=== PATIENT | male | born 1955 | race Caucasian/White ===

== ENCOUNTER 2023-10-06 13:50 | Inpatient (IN) | payer BC, OTHER ==
--- OUTSIDE RECORDS SUMMARY | 2023-10-06 13:57 | XMS REPORT | Continuity of Care Document ---
Author Name Unknown Address [address] [facility] [address] [place] [address] [facility] [address] [facility] [address] [place] [address] Care Team Providers Care Mobile Lounge Driver Name Role Phone Aisha El Primary Care Physician Aisha El Attending Clinician Unavail yaerlis Sampson RN, Noelle Valencia Attending Clinician [phone] MAVERICK NUNN Attending Clinician UnavailEdvin Maldonado MD Attending Clinician [phone] Maverick Nunn MD Attending Clinician [phone] Yaz Dutton MD Attending Clinician YAZ DUTTON Attending Clinician Isis vailable Lab, Ang - Db Attending Clinician Unavailable Doctor Unassigned, [facility] Attending Clinician U mack KRISTA NUNN Attending Clinician Unavailable Edouard SILVER, Krista Attending Clinician [phone] Fahad SILVER, Azar Haines Attending Clinician [phone] Bindu Mcghee MD Attending Clinician [phone] DEMARCO DEE Attending Clinician Unavailable BINDU MCGHEE Attending Clinician Unavailable Luiz PAVING BLOCK CUTTER, Demarco Attending Clinician [phone] Jaciel Suh Attending Clinician Unavailable BRAYDEN CEE Attending Clinician Unavailable Coleman PAVING BLOCK CUTTER, Brayden Attending Clinician [phone] Lab, Adc Fam Pob I Attending Clinician Unavailab luther Kathleen MD, Azul Attending Clinician [phone] AZUL KATHLEEN Attending Clinician Unavailable Radiology Attending Clinician Unavailable RADIOLOGY Attending Clinician Unavailable Freddy Abreu MD Attending Clinician [phone] ERMA DEUTSCH Attending Clinician Unavailable Shearer PAC, Edwige S Attending Clinician [phone] Newton Bass MD Attending Clinician [phone] Sergo SILVER, Cornell Friend Attending Clinician [phone] Georgette SILVER, Jese Jones Attending Clinician [phone] FREDDY ABREU Attending Clinician UnavailMAVERICK Vazquez Admitting Clinician UnavailMaverick Vazquez MD Admitting Clinician [phone] Azar Cardona MD Admitting Clinician [phone] AZAR CARDONA Admitting Clinician Unavailab luther Palomino MD, Jese Jones Admitting Clinician [phone] Payers Payer Name Policy Type Policy Number Effective Date Expirati on Date Source [facility] [id number] 2013 00:00:00 [place] [address] [id number] [facility] MEDICARE OBS/INPT PART A ONLY [id number] 2019 00:00:00 Problems Condition Name Condition Details Condition Category Status Onset Date Resolution Date Last Treatment Date Treating Clinician Comments Source EDWARD (acute kidney injury) EDWARD (acute kidney injury) Disease Active 7 00:00: 00 [facility] Obesity (BMI 30-39.9) Obesity (BMI 30-39.9) Disease Active 2019-03 2 00:00: 00 [facility] Respirator y failure with hypoxia Respirator y failure with hypoxia Disease Active 2019-03 00:00: 00 [facility] Lumbar radiculopa thy Lumbar radiculopa thy Disease Active 2018-03 0 00:00: 00 [facility] Myofascial pain Myofascial pain Disease Active 2018-03 0 00:00: 00 [facility] Heart disease Heart disease Disease Active 2018-03 0 00:00: 00 [facility] STEMI (ST elevation myocardial infarction ) STEMI (ST elevation myocardial infarction ) Disease Active 12-13 00:00: 00 [facility] Diabetes mellitus Diabetes mellitus Disease Recurre nce 12-13 00:00: 00 [facility] [id number] ED (erectile dysfunctio n) of organic origin Problem [facility] [id number] Testicular hypofuncti on Problem [facility] [id number] Pain, joint, shoulder, left Problem [facility] [id number] Sprain of left rotator cuff capsule, subsequent encounter Problem [facility] [id number] Pain in left shoulder Problem [facility] [id number] Other chronic pain Problem [facility] [id number] CKD (chronic kidney disease) stage 2, GFR 60-89 ml/min Problem [facility] [id number] Hypercalce peewee Problem [facility] [id number] Uncomplica maddy opioid dependence Problem [facility] [id number] BPH without urinary obstructio n Problem [facility] [id number] Attention deficit hyperactiv ity disorder (ADHD), predominan tly inattentiv e type Problem [facility] [id number] Type 2 diabetes with complicati on Problem [facility] [id number] Lumbago with sciatica, right side Problem [facility] [id number] Panic attacks Problem [facility] [id number] Mixed hyperlipid emia Problem [facility] [id number] Overweight Problem Com [facility] [id number] Coronary artery disease involving [place] coronary artery of [place] heart without angina pectoris Problem [facility] [id number] Essential hypertensi on Problem [facility] [id number] Stented coronary artery Problem [facility] [id number] Polyneurop athy Problem [facility] [id number] Lumbago with sciatica, left side Problem [facility] [id number] Acquired hypothyroi dism Problem [facility] [id number] Pain, joint, shoulder, right Problem [facility] No known active problems No known active problems Disease [facility] Allergies, Adverse Reactions, Alerts Allergy Name Allergy Type Status Severity Reaction(s) Onset Date Inactive Date Treating Clinician Comments Source No Known Drug Allergie s DA Active U 03-24 00:00: 00 [facility] NO KNOWN ALLERGIE S Drug Class Active [facility] Social History Social Habit Start Date Stop Date Quantity Comments Source History of Tobacco Use [facility] Sex Assigned At [facility] intake 2023-09-24 00:00:00 2023-09-24 00:00:00 .24 /d [facility] Alcohol intake 2023-02-04 00:00:00 2023-02-04 00:00:00 .24 /d [facility] History of Social function 2023-02-04 00:00:00 2023-02-04 00:00:00 [facility] Alcohol Comment 2023-02-04 00:00:00 2023-02-04 00:00:00 rarely [facility] Exposure to SARS-CoV-2 (event) 2021-12-14 00:00:00 2021-12-24 09:38:00 Not sure [facility] Tobacco Comment 2021-12-24 00:00:00 2021-12-24 00:00:00 1 can/day, 12 yrs [facility] Tobacco use and exposure 2021-12-24 00:00:00 2021-12-24 00:00:00 Former smokeless tobacco user [facility] History SDOH Food Worry 2020-03-01 00:00:00 2020-03-01 00:00:00 1 [facility] History SDOH Food Scarcity 2020-03-01 00:00:00 2020-03-01 00:00:00 1 [facility] History SDOH Transport Med 2020-03-01 00:00:00 2020-03-01 00:00:00 2 [facility] History SDOH Transport Non-Med 2020-03-01 00:00:00 2020-03-01 00:00:00 2 [facility] Smoking Status Start Date Stop Date Source Never smoked tobacco [facility] Medications Ordered Medication Name Filled Medication Name Start Date Stop Date Current Medication? Ordering Clinician Indication Dosage Frequency Signature (SIG) Comments Components Source MULTIVITAMI N ORAL 09-25 15:53: 30 Yes 1{tbl} Take 1 tablet by mouth in the morning. [facility] HYDROcodone -acetaminop hen 5-325 mg tablet 09-25 15:53: 30 Yes 1{tbl} Take 1 tablet by mouth every 6 (six) hours as needed. [facility] Thyroid, Pork, (ARMOUR THYROID) 90 mg tablet 09-25 15:53: 30 Yes Take by mouth daily. In the morning [facility] rosuvastati n (CRESTOR) tablet 10 mg 09-25 02:00: 00 Yes 10mg 10 mg, Oral, QHS, First dose on Thu09/25/23 at 2100, Until Discontinu ed, Routine [facility] tamsulosin 0.4 mg 24 hr capsule 09-25 00:00: 00 Yes .4mg Take 1 capsule by mouth in the morning. [facility] cefdinir 300 mg capsule 09-25 00:00: 00 10-03 04:59 :00 Yes [id number] 300mg Take 1 capsule by mouth in the morning and 1 capsule in the evening. Do all this for 7 days. [facility] azithromyci n 500 mg tablet 09-25 00:00: 00 09-29 04:59 :00 Yes [id number] 500mg Take 1 tablet by mouth in the morning for 3 days. [facility] Sliding Scale Insulin - Lispro (HumaLOG) 09-24 17:00: 00 Yes Subcutaneo us, TID MEALS+HS, First dose on Thu09/25/23 at 1200, Until Discontinu ed, Routine [facility] perflutren protein-A microsphr (OPTISON) injection 3 mL 09-24 15:45: 00 09-24 15:45 :00 No [id number] 3mL 3 mL, IV Push, ONCE, 1 dose, On Thu09/25/23 at 1045, Routine [facility] tamsulosin (FLOMAX) capsule 0.4 mg 09-24 14:00: 00 Yes .4mg 0.4 mg, Oral, DAILY, First dose on Thu09/25/23 at 0900, Until Discontinu ed, Routine [facility] dapaglifloz in propanediol (FARXIGA) tablet 5 mg 09-24 14:00: 00 Yes 5mg [facility] clopidogreL (PLAVIX) 75 mg tablet 75 mg 09-24 14:00: 00 Yes 75mg 75 mg, Oral, DAILY, First dose on Thu09/25/23 at 0900, Until Discontinu ed, Routine [facility] aspirin EC tablet 81 mg 09-24 14:00: 00 Yes 81mg 81 mg, Oral, DAILY, First dose on Thu09/25/23 at 0900, Until Discontinu ed, Routine [facility] amLODIPine (NORVASC) tablet 5 mg 09-24 14:00: 00 09-24 21:12 :54 No 5mg 5 mg, Oral, DAILY, First dose on Thu09/25/23 at 0900, Until Discontinu ed, Routine [facility] glucagon (GLUCAGEN DIAGNOSTIC KIT) injection 1 mg 09-24 13:49: 13 Yes 1mg 1 mg, Intramuscu lar, PRN, Starting on Thu09/25/23 at 0849, Until Discontinu ed, MARGO, Blood Glucose < or = 70 mg/dL and patient is NPO, unable to swallow or has mental changes. [facility] dextrose 50 % in water (D50W) injection 25 mL 09-24 13:49: 13 Yes 25mL 25 mL, Slow IV Push, PRN, Starting on Thu09/25/23 at 0849, Until Discontinu ed, MARGO, Blood Glucose < or = 70 mg/dL and patient is NPO, unable to swallow or has mental status changes. [facility] DULoxetine (CYMBALTA) capsule 20 mg 09-24 13:00: 00 Yes 20mg 20 mg, Oral, BID, First dose on Thu09/25/23 at 0800, Until Discontinu ed, Routine [facility] metoprolol tartrate (LOPRESSOR) tablet 100 mg 09-24 13:00: 00 Yes 100mg 100 mg, Oral, BID, First dose on Thu09/25/23 at 0800, Until Discontinu ed [facility] heparin (porcine) injection 5,000 Units 09-24 13:00: 00 Yes 5000U 5,000 Units, Subcutaneo us, Q12H, First dose on Thu09/25/23 at 0800, Until Discontinu ed, Routine [facility] NaCl 0.9% (NS) bolus infusion 500 mL 09-24 08:00: 00 09-24 07:21 :00 No 500mL at 999 mL/hr, 500 mL, IV Piggyback, ONCE, 1 dose, On Thu09/25/23 at 0300, STAT [facility] gabapentin (NEURONTIN) tablet 600 mg 09-24 07:15: 00 Yes 600mg 600 mg, Oral, TID, First dose (after last modificati on) on Thu09/25/23 at 0215, Until Discontinu ed, Routine [facility] temazepam (RESTORIL) capsule 15 mg 09-24 07:06: 24 Yes 15mg 15 mg, Oral, QHSPRN, Starting on Thu09/25/23 at 0206, Until Discontinu ed, Routine, Insomnia [facility] NaCl 0.9% (NS) IV infusion 1,000 mL 09-24 06:45: 00 09-25 20:14 :33 No 1000mL at 150 mL/hr, Intravenou s, CONTINUOUS , Starting on Thu09/25/23 at 0145, Until 09/26/23 at 1514, Routine [facility] ondansetron (ZOFRAN (PF)) injection 4 mg 09-24 05:34: 39 Yes 4mg 4 mg, Slow IV Push, Q6HPRN, Starting on Thu09/25/23 at 0034, Until Discontinu ed, Routine, Nausea and Vomiting (N/V) [facility] HYDROcodone -acetaminop hen (NORCO 5) 5-325 mg tablet 1 tablet 09-24 05:34: 34 09-26 05:33 :34 Yes 1{tbl} 1 tablet, Oral, Q6HPRN, Starting on Thu09/25/23 at 0034, Until 09/27/23 at 0033, Routine, Pain (scale 4-6) [facility] acetaminoph en (TYLENOL) tablet 650 mg 09-24 05:34: 32 Yes 650mg 650 mg, Oral, Q6HPRN, Starting on Thu09/25/23 at 0034, Until Discontinu ed, Routine, Pain (scale 1-3) [facility] NaCl 0.9% (NS) IV infusion 1,000 mL 2024-0 7-05 04:30: 00 09-24 21:12 :54 No 1000mL at 999 mL/hr, Intravenou s, CONTINUOUS , Starting on Thu09/24/23 at 2330, Until Thu09/25/23 at 1612, Routine 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 G6 Sensor - Dexcom G6 Sensor - 2023-0 2- 00:00: 00 No Dexcom G6 Sensor - Dexcom G6 Transmitter - Dexcom G6 Transmitter - 0 2- 00:00: 00 No Dexcom G6 Transmitte r - Lisdexamfet amine Dimesylate 70 MG Lisdexamfet amine Dimesylate 70 MG 2023-0 2- 00:00: 00 No 1{capsu le_in_t he_morn ing} QD Lisdexamfe tamine Dimesylate 70 MG Ozempic (2 MG/DOSE) 8 MG/3ML Ozempic (2 MG/DOSE) 8 MG/3ML 0 1-26 00:00: 00 No Ozempic (2 MG/DOSE) 8 MG/3ML Accu-check glucose monitor n/s Accu-check glucose monitor n/s 2023-0 -24 00:00: 00 No Accu-check glucose monitor n/s Alcohol Wipes 70 % Alcohol Wipes 70 % 2023-0 1-24 00:00: 00 No QID Alcohol Wipes 70 % Blood Glucose Test Strips 333 - Blood Glucose Test Strips 333 - 2023-0 1-24 00:00: 00 No QID Blood Glucose Test Strips 333 - Cotton Swabs - Cotton Swabs - 4-0 1-24 00:00: 00 No Cotton Swabs - metFORMIN HCl 1000 mg metFORMIN HCl 1000 mg 2023-0 1-23 00:00: 00 No 1{table t_with_ a_meal} QD metFORMIN HCl 1000 mg semaglutide (OZEMPIC) 1 mg/dose (4 mg/3 mL) [facility] 04-06 00:00: 00 Yes [id number] INJECT 1MG UNDER THE SKIN ONCE WEEKLY. [facility] semaglutide (OZEMPIC) 1 mg/dose (4 mg/3 mL) [facility] 2022-03 00:00: 00 04-06 00:00 :00 No [id number] 1mg inject 1 mg under the skin weekly. [facility] ZINC ORAL 2022-03 15:44: 54 02-04 00:00 :00 No 50ug Take 50 mcg by mouth in the morning. [facility] MULTIVITAMI N ORAL 2022-03 15:25: 40 Yes 1{tbl} Take 1 tablet by mouth in the morning. [facility] HYDROcodone -acetaminop hen 5-325 mg tablet 2022-03 15:25: 40 Yes 1{tbl} Take 1 tablet by mouth every 6 (six) hours as needed. [facility] ALPRAZolam 0.5 mg tablet 2022-03 00:00: 00 Yes [id number] Take 0.5 tablets by mouth every morning, THEN 0.5 tablets every other day. [facility] pregabalin 75 mg capsule 2022-03 00:00: 00 09-24 00:00 :00 No [id number] TAKE ONE (1) CAPSULE(S) BY MOUTH TWICE A DAY. [facility] semaglutide (OZEMPIC) 0.25 mg or 0.5 mg (2 mg/3 mL) [facility] 2022-03 00:00: 00 02-11 00:00 :00 No [id number] .5mg inject 0.5 mg under the skin weekly. [facility] sildenafiL 100 mg tablet 2022-03 00:00: 00 Yes TAKE 0.5-1 TABLET(S) BY MOUTH 1 HOUR PRIOR TO SEX. [facility] tadalafiL 20 mg tablet 2022-0309 00:00: 00 02-04 00:00 :00 No 20mg Take 1 tablet by mouth once daily as needed. [facility] lisdexamfet amine 70 mg capsule 2022-03 00:00: 00 Yes 70mg Take 1 capsule by mouth in the morning. [facility] OZEMPIC 0.25 mg or 0.5 mg (2 mg/3 mL) PnIj 09-26 00:00: 00 02-04 00:00 :00 No INJECT 0.25 MG UNDER THE SKIN ONCE A WEEK FOR 4 WEEKS, THEN INCREASE TO 0.5 MG ONCE A WEEK. [facility] pregabalin 75 mg capsule 09-26 00:00: 00 02-04 00:00 :00 No TAKE ONE (1) CAPSULE(S) BY MOUTH TWICE A DAY. [facility] ARMOUR THYROID 120 mg tablet 09-25 00:00: 00 09-24 00:00 :00 No TAKE ONE (1) TABLET(S) BY MOUTH ONCE A DAY IN THE MORNING. [facility] rosuvastati n 10 mg tablet 09-11 00:00: 00 Yes 10mg Take 1 tablet by mouth at bedtime. [facility] FARXIGA 5 mg tablet 09-11 00:00: 00 Yes 5mg Take 1 tablet by mouth in the morning. [facility] amphetamine -dextroamph etamine 20 mg 24 hr capsule 09-04 00:00: 00 02-04 00:00 :00 No TAKE ONE (1) CAPSULE(S) BY MOUTH TWICE A DAY. [facility] amLODIPine 5 mg tablet 09-01 00:00: 00 Yes 5mg Take 1 tablet by mouth in the morning. [facility] tamsulosin 0.4 mg 24 hr capsule 08-31 00:00: 00 09-24 00:00 :00 No .4mg Take 1 capsule by mouth in the morning. [facility] ALPRAZolam 0.5 mg tablet 2023-0 6-06 00:00: 00 02-04 00:00 :00 No .5mg Take 1 tablet by mouth in the morning and 1 tablet in the evening. [facility] nebivoloL 10 mg tablet 08-04 00:00: 00 Yes 10mg Take 1 tablet by mouth in the morning. [facility] metFORMIN 500 mg tablet 07-30 00:00: 00 Yes 1000mg Take 2 tablets by mouth in the morning and 2 tablets in the evening. Take with meals. [facility] metFORMIN 500 mg tablet 07-30 00:00: 00 Yes 500mg Take 1 tablet by mouth in the morning and 1 tablet in the evening. [facility] DULoxetine 60 mg capsule 07-30 00:00: 00 02-04 00:00 :00 No 60mg Take 1 capsule by mouth in the morning. [facility] JANUVIA 100 mg tablet 4-19 00:00: 00 02-04 00:00 :00 No 100mg Take 1 tablet by mouth in the morning. [facility] Viagra 100 MG Viagra 100 MG - 00:00: 00 No Viagra 100 MG insulin regular human (HUMULIN R) injection 10 Units 12-17 10:15: 00 12-17 09:20 :00 No 10U 10 Units, Slow IV Push, ONCE, 1 dose, On Thu12/17/21 at 0515, Routine
Indicatio n for insulin: Hyperglyce peewee [facility] NaCl 0.9% (NS) bolus infusion 1,000 mL 12-17 10:15: 00 12-17 10:20 :00 No 1000mL at 999 mL/hr, 1,000 mL, IV Piggyback, ONCE, 1 dose, On Thu12/17/21 at 0515, STAT [facility] iopamidol (ISOVUE 370-500 mL) injection 70 mL 12-17 07:35: 00 12-17 07:45 :00 No [id number] 70mL 70 mL, Intravenou s, ONCE, 1 dose, On Thu12/17/21 at 0245, Routine [facility] insulin regular human (HUMULIN R) injection 10 Units 12-17 07:30: 00 12-17 07:05 :00 No 10U 10 Units, Slow IV Push, ONCE, 1 dose, On Thu12/17/21 at 0230, Routine
Indicatio n for insulin: Hyperglyce peewee [facility] amoxicillin -clavulanat e 875-125 mg per tablet 12-17 00:00: 00 Yes [id number] 1{tbl} Take 1 tablet by mouth every 12 (twelve) hours. [facility] tetracaine (PONTOCAINE ) 0.5 % ophthalmic drops 1 Drop 12-16 23:45: 00 12-16 23:01 :00 No 1[drp] 1 Drop, Left Eye, ONCE, 1 dose, On Thu12/16/21 at 1845, Routine [facility] fluorescein (FUL-CARLO) ophthalmic strip 1 Strip 12-16 23:45: 00 12-16 23:01 :00 No 1{strip } 1 Strip, Left Eye, ONCE, 1 dose, On Thu12/16/21 at 1845, Routine
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
Reason for non-formul alexis use: PATIENT CURRENTLY TAKING NONFORMULA RY PRODUCT [facility] methylpredn isolone sod succ (SOLU-MEDRO L) injection 125 mg 12-16 23:30: 00 12-16 22:58 :00 No 125mg 125 mg, Intravenou s, ONCE, 1 dose, On Thu12/16/21 at 1830, 2 mL [facility] famotidine (PEPCID (PF)) injection 20 mg 12-16 23:00: 00 12-16 22:58 :00 No 20mg 20 mg, Slow IV Push, ONCE, 1 dose, On Thu12/16/21 at 1800, MARGO [facility] diphenhydrA MINE (BENADRYL) injection 25 mg 12-16 23:00: 00 12-16 22:59 :00 No 25mg 25 mg, Slow IV Push, ONCE, 1 dose, On 12/16/21 at 1800, STAT [facility] Lidocaine Lidocaine 03-27 00:00: 00 No 10mg [facility] Kenalog (Triamcinol one) Kenalog (Triamcinol one) - 00:00: 00 No 40mg [facility] HYDROcodone -acetaminop hen (NORCO 5) 5-325 mg tablet 1 tablet 2020-03 18:30: 00 02-03 17:29 :00 No 1{tbl} 1 tablet, Oral, ONCE, 1 dose, On 02/03/21 at 1230, MARGO [facility] valACYclovi r 1 gram tablet 2020-03 00:00: 00 02-14 05:59 :00 No [id number] 1g Take 1 tablet by mouth 3 (three) times daily for 10 days. [facility] acetaminoph en-codeine 300-30 mg tablet 2020-03 00:00: 00 02-11 05:59 :00 No [id number] 1{tbl} Take 1 tablet by mouth every 6 (six) hours as needed for Pain (scale 7-10) for up to 7 days. Indication s: acute pain [facility] DULoxetine 20 mg capsule 08-14 00:00: 00 Yes [id number] 20mg Take 1 capsule by mouth daily. [facility] insulin glargine (LANTUS U-100) injection 24 Units 2019-03 03:00: 00 Yes 24U 24 Units, Subcutaneo us, QHS, First dose (after last modificati on) on 03/03/20 at 2100, Until Discontinu ed, Routine [facility] aspirin 81 mg EC tablet 2019-03 00:00: 00 Yes [id number] 81mg Take 1 tablet by mouth daily. [facility] clopidogreL 75 mg tablet 2019-03 00:00: 00 Yes [id number] 75mg Take 1 tablet by mouth daily. [facility] DULoxetine 20 mg capsule 2019-03 00:00: 00 08-14 00:00 :00 No [id number] 20mg Take 1 capsule by mouth daily. [facility] cyclobenzap rine 10 mg tablet 2019-03 22:51: 39 03-03 00:00 :00 No 10mg Take 10 mg by mouth once daily as needed for Cramping. [facility] SITagliptin (JANUVIA) 100 mg tablet 2019-03 22:51: 39 03-03 00:00 :00 No 100mg Take 100 mg by mouth daily. [facility] simvastatin (ZOCOR) 20 mg tablet 2019-03 22:51: 38 03-03 00:00 :00 No 20mg Take 20 mg by mouth at bedtime. [facility] metFORMIN (GLUCOPHAGE ) 500 mg tablet 2019-03 22:51: 38 03-03 00:00 :00 No 500mg Take 500 mg by mouth 4 (four) times daily. [facility] dextroamphe tamine-amph etamine (ADDERALL) 20 mg tablet 2019-03 22:51: 38 03-03 00:00 :00 No 20mg Take 20 mg by mouth 2 (two) times daily. [facility] testosteron e cypionate (DEPOTESTOT ERONE CYPIONATE) 100 mg/mL injection 2019-03 22:51: 38 03-03 00:00 :00 No by Intramuscu lar route every 14 (fourteen) days. [facility] tadalafil (CIALIS) 20 mg tablet 2019-03 22:51: 38 03-03 00:00 :00 No 20mg Take 20 mg by mouth as needed for Erectile dysfunctio n. [facility] simvastatin (ZOCOR) 20 mg tablet 2019-03 21:30: 42 Yes 20mg Take 20 mg by mouth at bedtime. [facility] metFORMIN (GLUCOPHAGE ) 500 mg tablet 2019-03 21:30: 42 Yes 500mg Take 500 mg by mouth 4 (four) times daily. [facility] dextroamphe tamine-amph etamine (ADDERALL) 20 mg tablet 2019-03 21:30: 42 Yes 20mg Take 20 mg by mouth 2 (two) times daily. [facility] testosteron e cypionate (DEPOTESTOT ERONE CYPIONATE) 100 mg/mL injection 2019-03 21:30: 42 Yes by Intramuscu lar route every 14 (fourteen) days. [facility] tadalafil (CIALIS) 20 mg tablet 2019-03 21:30: 42 Yes 20mg Take 20 mg by mouth as needed for Erectile dysfunctio n. [facility] cyclobenzap rine 10 mg tablet 2019-03 21:30: 42 Yes 10mg Take 10 mg by mouth once daily as needed for Cramping. [facility] SITagliptin (JANUVIA) 100 mg tablet 2019-03 21:30: 42 Yes 100mg Take 100 mg by mouth daily. [facility] insulin lispro (human) (HumaLOG U-100) injection 8 Units 2019-03 13:30: 00 Yes 8U 8 Units, Subcutaneo us, TIDAC, First dose (after last modificati on) on 03/03/20 at 0730, Until Discontinu ed, Routine [facility] lisinopriL 20 mg tablet 2019-03 00:00: 00 Yes [id number] 20mg Take 1 tablet by mouth daily. [facility] albuterol 90 mcg/actuati on inhaler 2019-03 00:00: 00 02-04 00:00 :00 No [id number] 2{puff} Inhale 2 Puffs every 6 (six) hours as needed for Wheezing or Shortness of Breath. [facility] ipratropium (ATROVENT HFA) inhaler 2 Puff 2019-03 20:00: 00 Yes 2{puff} 2 Puff, Inhalation , TID, First dose (after last modificati on) on Thu03/02/20 at 1400, Until Discontinu ed, Routine
Is this order for a patient with suspected or confirmed COVID-19 infection? Yes [facility] albuterol (VENTOLIN) inhaler 2 Puff 2019-03 18:00: 00 Yes 2{puff} 2 Puff, Inhalation , Q6H, First dose (after last modificati on) on Thu03/02/20 at 1200, Until Discontinu ed, Routine
Is this order for a patient with suspected or confirmed COVID-19 infection? Yes [facility] simvastatin (ZOCOR) tablet 20 mg 2019-03 03:00: 00 Yes 20mg 20 mg, Oral, QHS, First dose on Thu03/01/20 at 2100, Until Discontinu ed, Routine [facility] insulin glargine (LANTUS U-100) injection 20 Units 2019-03 03:00: 00 03-03 13:23 :50 No .2U/kg/ d 20 Units (rounded from 19.96 Units = 0.2 Units/kg/d ay ?99.8 kg), Subcutaneo us, QHS, First dose on Thu03/01/20 at 2100, Until Discontinu ed, Routine [facility] sulfur hexafluorid e microsphr (LUMASON) injection 5 mL 2019-03 23:15: 00 03-01 21:32 :00 No 5mL 5 mL, Intravenou s, ONCE, 1 dose, Thu03/01/20 at 1715, Routine
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 : CESAR ARBOLEDA [facility] enoxaparin (LOVENOX) injection 40 mg 2019-03 23:00: 00 Yes 40mg 40 mg, Subcutaneo us, DAILY, First dose on Thu03/01/20 at 1700, Until Discontinu ed, Routine [facility] furosemide (LASIX) injection 40 mg 2019-03 17:30: 00 03-01 18:26 :00 No 40mg 40 mg, Slow IV Push, ONCE, 1 dose, Sandra 03/01/20 at 1130, Routine [facility] tamsulosin (FLOMAX) capsule 0.4 mg 2019-03 15:00: 00 Yes .4mg 0.4 mg, Oral, DAILY, First dose on Thu03/01/20 at 0900, Until Discontinu ed, Routine [facility] lisinopriL (PRINIVIL,Z ESTRIL) tablet 5 mg 2019-03 15:00: 00 Yes 5mg 5 mg, Oral, DAILY, First dose on Thu03/01/20 at 0900, Until Discontinu ed, Routine [facility] DULoxetine (CYMBALTA) capsule 20 mg 2019-03 15:00: 00 Yes 20mg 20 mg, Oral, DAILY, First dose on Thu03/01/20 at 0900, Until Discontinu ed, Routine [facility] clopidogreL (PLAVIX) tablet 75 mg 2019-03 15:00: 00 Yes 75mg 75 mg, Oral, DAILY, First dose on Thu03/01/20 at 0900, Until Discontinu ed, Routine [facility] aspirin EC tablet 81 mg 2019-03 15:00: 00 Yes 81mg 81 mg, Oral, DAILY, First dose on Thu03/01/20 at 0900, Until Discontinu ed, Routine [facility] Sliding Scale Insulin - Lispro (HumaLOG) + Fsbg Testing 2019-03 14:00: 00 Yes Subcutaneo us, TID MEALS+HS, First dose on Thu03/01/20 at 0800, Until Discontinu ed, Routine [facility] gabapentin (NEURONTIN) capsule 300 mg 2019-03 14:00: 00 Yes 300mg 300 mg, Oral, QID, First dose on Thu03/01/20 at 0800, Until Discontinu ed, Routine [facility] insulin lispro (human) (HumaLOG U-100) injection 7 Units 2019-03 13:30: 00 03-03 13:23 :50 No .2U/kg/ d 7 Units (rounded from 6.6533 Units = 0.2 Units/kg/d ay ?99.8 kg), Subcutaneo us, TIDAC, First dose on Thu03/01/20 at 0730, Until Discontinu ed, Routine [facility] thyroid (ARMOUR THYROID) tablet 120 mg 2019-03 12:00: 00 Yes 120mg 120 mg, Oral, QAM-0600, First dose on Thu03/01/20 at 0600, Until Discontinu ed [facility] glucagon (GLUCAGEN DIAGNOSTIC KIT) injection 1 mg 2019-03 10:55: 30 Yes 1mg 1 mg, Intramuscu lar, PRN, Starting Thu03/01/20 at 0455, Until Discontinu ed, MARGO, Blood Glucose < or = 70 mg/dL and patient is unable to swallow or has mental changes. [facility] dextrose 50 % in water (D50W) injection 25 mL 2019-03 10:55: 30 Yes 25mL 25 mL, Slow IV Push, PRN, Starting Thu03/01/20 at 0455, Until Discontinu ed, MARGO, Blood Glucose < or = 70 mg/dL and patient is unable to swallow or has mental status changes. [facility] metoprolol tartrate (LOPRESSOR) 25 mg tablet 2019-03 10:43: 30 03-01 00:00 :00 No 25mg Take 25 mg by mouth daily. [facility] HYDROcodone -acetaminop hen (NORCO) 10-325 mg tablet 1 tablet 2019-03 10:41: 11 Yes 1{tbl} 1 tablet, Oral, Q6HPRN, Starting Thu03/01/20 at 0441, Until Discontinu ed, Routine, Pain (scale 7-10) [facility] acetaminoph en (TYLENOL) tablet 650 mg 2019-03 10:41: 06 Yes 650mg 650 mg, Oral, Q6HPRN, Starting Thu03/01/20 at 0441, Until Discontinu ed, Routine, Pain (scale 1-3) [facility] acetaminoph en (TYLENOL) tablet 650 mg 2019-03 2-10 06:15: 00 03-01 05:02 :00 No 650mg 650 mg, Oral, ONCE, 1 dose, [facility] 03/01/20 at 0015, MARGO [facility] DULOXETINE 60 mg capsule 11-13 00:00: 00 03-03 00:00 :00 No [id number] TAKE 1 CAPSULE DAILY [facility] GLIMEPIRIDE 4 mg tablet 11-13 00:00: 03-03 00:00 :00 No [id number] TAKE 1 TABLET DAILY WITH BREAKFAST [facility] DULoxetine 60 mg capsule 06-02 00:00: 00 11-13 00:00 :00 No [id number] 60mg Take 1 capsule by mouth daily. [facility] glimepiride 4 mg tablet 06-02 00:00: 11-13 00:00 :00 No [id number] 4mg Take 1 tablet by mouth daily with breakfast. [facility] acetaminoph en-codeine 300-30 mg tablet 2018-03 0 00:00: 03-03 00:00 :00 No [id number] 1{tbl} Take 1 tablet by mouth every 4 (four) hours as needed for Pain (scale 7-10). [facility] simvastatin (ZOCOR) 20 mg tablet 06-13 15:50: 08 Yes 20mg Take 20 mg by mouth at bedtime. [facility] metFORMIN (GLUCOPHAGE ) 500 mg tablet 06-13 15:50: 08 Yes 500mg Take 500 mg by mouth 3 (three) times daily. [facility] dextroamphe tamine-amph etamine (ADDERALL) 20 mg tablet 06-13 15:50: 08 Yes 20mg Take 20 mg by mouth 3 (three) times daily. [facility] testosteron e cypionate (DEPOTESTOT ERONE CYPIONATE) 100 mg/mL injection 06-13 15:50: 08 Yes by Intramuscu lar route every 14 (fourteen) days. [facility] tadalafil (CIALIS) 20 mg tablet 06-13 15:50: 08 Yes 20mg Take 20 mg by mouth as needed for Erectile dysfunctio n. [facility] aspirin 81 mg EC tablet 05-29 00:00: 00 03-03 00:00 :00 No [facility] ARMOUR THYROID 90 mg tablet 1 00:00: 00 03-03 00:00 :00 No 120mg Take 120 mg by mouth daily. [facility] metoprolol tartrate (LOPRESSOR) 25 mg tablet 2015-0316 14:21: 51 Yes 25mg Take 25 mg by mouth daily. [facility] BYSTOLIC 5 mg tablet 2015-03 00:00: 00 03-03 00:00 :00 No [facility] gabapentin (NEURONTIN) 300 mg capsule 2015-03 00:00: 00 03-03 00:00 :00 No 300mg Take 300 mg by mouth 4 (four) times daily. [facility] testosteron e cypionate (DEPO-TESTO STERONE) 200 mg/mL injection 2015-03 00:00: 00 03-01 00:00 :00 No [facility] HYDROcodone -acetaminop hen (NORCO 5) 5-325 mg tablet 2015-03 00:00: 00 03-01 00:00 :00 No [facility] Nebivolol HCl 10 MG Nebivolol HCl 10 MG No 1{table t} QD Nebivolol HCl 10 MG Aspirin 81 MG Aspirin 81 MG No 1{table t} QD Aspirin 81 MG Farxiga 10 mg Farxiga 10 mg No 1{table t} QD Farxiga 10 mg Horizant 600 MG Horizant 600 MG No QD Horizant 600 MG Januvia 100 MG Januvia 100 MG No 1{table t} QD Januvia 100 MG amLODIPine Besylate 5 MG amLODIPine Besylate 5 MG No 1{table t} QD amLODIPine Besylate 5 MG Tamsulosin HCl 0.4 MG Tamsulosin HCl 0.4 MG No 1{capsu le} BID Tamsulosin HCl 0.4 MG Galva Thyroid 60 MG Galva Thyroid 60 MG No 1{table t_on_an _empty_ stomach } QD Galva Thyroid 60 MG Lisinopril 20 MG Lisinopril 20 MG No 1{table t} QD Lisinopril 20 MG Pregabalin 50 MG Pregabalin 50 MG No 1{capsu le} BID Pregabalin 50 MG Rosuvastati n Calcium 10 MG Rosuvastati n Calcium 10 MG No 1{table t} QD Rosuvastat in Calcium 10 MG Tadalafil 20 MG Tadalafil 20 MG No 1{table t_as_ne eded} QD Tadalafil 20 MG Clopidogrel Bisulfate 75 MG Clopidogrel Bisulfate 75 MG No 1{table t} QD Clopidogre l Bisulfate 75 MG Amphetamine -Dextroamph etamine 20 MG Amphetamine -Dextroamph etamine 20 MG No 1{table t} BID Amphetamin e-Dextroam phetamine 20 MG DULoxetine HCl 20 MG DULoxetine HCl 20 MG No 1{capsu le} QD DULoxetine HCl 20 MG Cymbalta 30 MG Cymbalta 30 MG No 1{capsu le} QD Cymbalta 30 MG DULoxetine HCl 30 mg DULoxetine HCl 30 mg No DULoxetine HCl 30 mg Immunizations Ordered Immunization Name Filled Immunization Name Date Status Comments Source SARS-COV-2 COVID-19 PFIZER VACCINE 2020-06-04 00:00:00 Completed [facility] SARS-COV-2 COVID-19 PFIZER VACCINE 2020-06-04 00:00:00 Completed [facility] SARS-COV-2 COVID-19 PFIZER VACCINE 2020-06-04 00:00:00 Completed [facility] SARS-COV-2 COVID-19 PFIZER VACCINE 2020-06-04 00:00:00 Completed [facility] SARS-COV-2 COVID-19 PFIZER VACCINE 2020-06-04 00:00:00 Completed [facility] SARS-COV-2 COVID-19 PFIZER VACCINE 2020-06-04 00:00:00 Completed [facility] SARS-COV-2 COVID-19 PFIZER VACCINE 2020-06-04 00:00:00 Completed [facility] SARS-COV-2 COVID-19 PFIZER VACCINE 2020-06-04 00:00:00 Completed [facility] SARS-COV-2 COVID-19 PFIZER VACCINE 2020-06-04 00:00:00 Completed [facility] SARS-COV-2 COVID-19 PFIZER VACCINE 2020-06-04 00:00:00 Completed [facility] SARS-COV-2 COVID-19 PFIZER VACCINE 2020-06-04 00:00:00 Completed [facility] SARS-COV-2 COVID-19 PFIZER VACCINE 2020-05-14 00:00:00 Completed [facility] SARS-COV-2 COVID-19 PFIZER VACCINE 2020-05-14 00:00:00 Completed [facility] SARS-COV-2 COVID-19 PFIZER VACCINE 2020-05-14 00:00:00 Completed [facility] SARS-COV-2 COVID-19 PFIZER VACCINE 2020-05-14 00:00:00 Completed [facility] SARS-COV-2 COVID-19 PFIZER VACCINE 2020-05-14 00:00:00 Completed [facility] SARS-COV-2 COVID-19 PFIZER VACCINE 2020-05-14 00:00:00 Completed [facility] SARS-COV-2 COVID-19 PFIZER VACCINE 2020-05-14 00:00:00 Completed [facility] SARS-COV-2 COVID-19 PFIZER VACCINE 2020-05-14 00:00:00 Completed [facility] SARS-COV-2 COVID-19 PFIZER VACCINE 2020-05-14 00:00:00 Completed [facility] SARS-COV-2 COVID-19 PFIZER VACCINE 2020-05-14 00:00:00 Completed [facility] SARS-COV-2 COVID-19 PFIZER VACCINE 2020-05-14 00:00:00 Completed [facility] Influenza Virus Vaccine Quad IM 6-35 MO 2019-12-22 00:00:00 Completed [facility] Influenza Virus Vaccine Quad IM 6-35 MO 2019-12-22 00:00:00 Completed [facility] Influenza Virus Vaccine Quad IM 6-35 MO 2019-12-22 00:00:00 Completed [facility] Influenza Virus Vaccine Quad IM 6-35 MO 2019-12-22 00:00:00 Completed [facility] Influenza Virus Vaccine Quad IM 6-35 MO 2019-12-22 00:00:00 Completed [facility] Influenza Virus Vaccine Quad IM 6-35 MO 2019-12-22 00:00:00 Completed [facility] Influenza Virus Vaccine Quad IM 6-35 MO 2019-12-22 00:00:00 Completed [facility] Influenza Virus Vaccine Quad IM 6-35 MO 2019-12-22 00:00:00 Completed [facility] Influenza Virus Vaccine Quad IM 6-35 MO 2019-12-22 00:00:00 Completed [facility] Influenza Virus Vaccine Quad IM 6-35 MO 2019-12-22 00:00:00 Completed [facility] Influenza Virus Vaccine Quad IM 6-35 MO 2019-12-22 00:00:00 Completed [facility] Influenza Virus Vaccine Quad IM 6-35 MO 2019-12-22 00:00:00 Completed [facility] Influenza Virus Vaccine Quad IM 6-35 MO 2019-12-22 00:00:00 Completed [facility] Influenza Virus Vaccine Quad IM 6-35 MO 2019-12-22 00:00:00 Completed [facility] Pneumococcal Polysaccharide, PPSV23 (PNEUMOVAX) 2012-12-14 00:00:00 Completed [facility] Pneumococcal Polysaccharide, PPSV23 (PNEUMOVAX) 2012-12-14 00:00:00 Completed [facility] Pneumococcal Polysaccharide, PPSV23 (PNEUMOVAX) 2012-12-14 00:00:00 Completed [facility] Pneumococcal Polysaccharide, PPSV23 (PNEUMOVAX) 2012-12-14 00:00:00 Completed [facility] Pneumococcal Polysaccharide, PPSV23 (PNEUMOVAX) 2012-12-14 00:00:00 Completed [facility] Pneumococcal Polysaccharide, PPSV23 (PNEUMOVAX) 2012-12-14 00:00:00 Completed [facility] Pneumococcal Polysaccharide, PPSV23 (PNEUMOVAX) 2012-12-14 00:00:00 Completed [facility] Pneumococcal Polysaccharide, PPSV23 (PNEUMOVAX) 2012-12-14 00:00:00 Completed [facility] Pneumococcal Polysaccharide, PPSV23 (PNEUMOVAX) 2012-12-14 00:00:00 Completed [facility] Pneumococcal Polysaccharide, PPSV23 (PNEUMOVAX) 2012-12-14 00:00:00 Completed [facility] Pneumococcal Polysaccharide, PPSV23 (PNEUMOVAX) 2012-12-14 00:00:00 Completed [facility] Pneumococcal Polysaccharide, PPSV23 (PNEUMOVAX) 2012-12-14 00:00:00 Completed [facility] Pneumococcal Polysaccharide, PPSV23 (PNEUMOVAX) 2012-12-14 00:00:00 Completed [facility] Pneumococcal Polysaccharide, PPSV23 (PNEUMOVAX) 2012-12-14 00:00:00 Completed [facility] Pneumococcal Polysaccharide, PPSV23 (PNEUMOVAX) 2012-12-14 00:00:00 Completed [facility] Pneumococcal Polysaccharide, PPSV23 (PNEUMOVAX) 2012-12-14 00:00:00 Completed [facility] Pneumococcal Polysaccharide, PPSV23 (PNEUMOVAX) 2012-12-14 00:00:00 Completed [facility] Pneumococcal Polysaccharide, PPSV23 (PNEUMOVAX) 2012-12-14 00:00:00 Completed [facility] Pneumococcal Polysaccharide, PPSV23 (PNEUMOVAX) 2012-12-14 00:00:00 Completed [facility] Pneumococcal Polysaccharide, PPSV23 (PNEUMOVAX) 2012-12-14 00:00:00 Completed [facility] SARS-COV-2 COVID-19 PFIZER VACCINE Unknown Completed [facility] Pneumococcal Polysaccharide, PPSV23 (PNEUMOVAX) Unknown Completed [facility] Influenza Virus Vaccine Quad IM 6-35 MO Unknown Completed [facility] SARS-COV-2 COVID-19 PFIZER VACCINE Unknown Completed [facility] SARS-COV-2 COVID-19 PFIZER VACCINE Unknown Completed [facility] Pneumococcal Polysaccharide, PPSV23 (PNEUMOVAX) Unknown Completed [facility] Influenza Virus Vaccine Quad IM 6-35 MO Unknown Completed [facility] SARS-COV-2 COVID-19 PFIZER VACCINE Unknown Completed [facility] SARS-COV-2 COVID-19 PFIZER VACCINE Unknown Completed [facility] Pneumococcal Polysaccharide, PPSV23 (PNEUMOVAX) Unknown Completed [facility] Influenza Virus Vaccine Quad IM 6-35 MO Unknown Completed [facility] SARS-COV-2 COVID-19 PFIZER VACCINE Unknown Completed [facility] SARS-COV-2 COVID-19 PFIZER VACCINE Unknown Completed [facility] Pneumococcal Polysaccharide, PPSV23 (PNEUMOVAX) Unknown Completed [facility] Influenza Virus Vaccine Quad IM 6-35 MO Unknown Completed [facility] SARS-COV-2 COVID-19 PFIZER VACCINE Unknown Completed [facility] SARS-COV-2 COVID-19 PFIZER VACCINE Unknown Completed [facility] Pneumococcal Polysaccharide, PPSV23 (PNEUMOVAX) Unknown Completed [facility] Influenza Virus Vaccine Quad IM 6-35 MO Unknown Completed [facility] SARS-COV-2 COVID-19 PFIZER VACCINE Unknown Completed [facility] SARS-COV-2 COVID-19 PFIZER VACCINE Unknown Completed [facility] Pneumococcal Polysaccharide, PPSV23 (PNEUMOVAX) Unknown Completed [facility] Influenza Virus Vaccine Quad IM 6-35 MO Unknown Completed [facility] SARS-COV-2 COVID-19 PFIZER VACCINE Unknown Completed [facility] SARS-COV-2 COVID-19 PFIZER VACCINE Unknown Completed [facility] Pneumococcal Polysaccharide, PPSV23 (PNEUMOVAX) Unknown Completed [facility] Influenza Virus Vaccine Quad IM 6-35 MO Unknown Completed [facility] SARS-COV-2 COVID-19 PFIZER VACCINE Unknown Completed [facility] SARS-COV-2 COVID-19 PFIZER VACCINE Unknown Completed [facility] Pneumococcal Polysaccharide, PPSV23 (PNEUMOVAX) Unknown Completed [facility] Influenza Virus Vaccine Quad IM 6-35 MO Unknown Completed [facility] SARS-COV-2 COVID-19 PFIZER VACCINE Unknown Completed [facility] SARS-COV-2 COVID-19 PFIZER VACCINE Unknown Completed [facility] Pneumococcal Polysaccharide, PPSV23 (PNEUMOVAX) Unknown Completed [facility] Influenza Virus Vaccine Quad IM 6-35 MO Unknown Completed [facility] SARS-COV-2 COVID-19 PFIZER VACCINE Unknown Completed [facility] SARS-COV-2 COVID-19 PFIZER VACCINE Unknown Completed [facility] Pneumococcal Polysaccharide, PPSV23 (PNEUMOVAX) Unknown Completed [facility] Influenza Virus Vaccine Quad IM 6-35 MO Unknown Completed [facility] SARS-COV-2 COVID-19 PFIZER VACCINE Unknown Completed [facility] SARS-COV-2 COVID-19 PFIZER VACCINE Unknown Completed [facility] Pneumococcal Polysaccharide, PPSV23 (PNEUMOVAX) Unknown Completed [facility] Influenza Virus Vaccine Quad IM 6-35 MO Unknown Completed [facility] SARS-COV-2 COVID-19 PFIZER VACCINE Unknown Completed [facility] Vital Signs Vital Name Observation Time Observation Value Comments [place] Systolic blood pressure 2023-09-26 20:18:00 124 mm[Hg] [facility] Diastolic blood pressure 2023-09-26 20:18:00 69 mm[Hg] [facility] Heart rate 2023-09-26 20:18:00 67 /min [facility] Body temperature 2023-09-26 20:18:00 36.22 Dea [facility] Respiratory rate 2023-09-26 20:18:00 18 /min [facility] Oxygen saturation in Arterial blood by Pulse oximetry 2023-09-26 20:18:00 96 /min [facility] Body weight 2023-09-26 08:19:00 87 kg [facility] BMI 2023-09-26 08:19:00 27.52 kg/m2 [facility] Body height 2023-09-25 03:04:00 177.8 cm [facility] height 2023-06-19 10:20:00 70 [in_i] Commo n [facility] weight 2023-06-19 10:20:00 187 [lb_av] Comm on [facility] temperature 2023-06-19 10:20:00 97.7 [degF] Com mon [facility] bmi 2023-06-19 10:20:00 26.83 kg/m2 Comm on [facility] oximetry 2023-06-19 10:20:00 97 % Commo n [facility] respiratory rate 2023-06-19 10:20:00 18 /min [facility] blood pressure systolic 2023-06-19 10:20:00 141 mm[Hg] Common [facility] blood pressure diastolic 2023-06-19 10:20:00 75 mm[Hg] Common [facility] height 2023-05-15 08:00:00 70 [in_i] Commo n [facility] weight 2023-05-15 08:00:00 192 [lb_av] Comm on [facility] temperature 2023-05-15 08:00:00 97.7 [degF] Com mon [facility] bmi 2023-05-15 08:00:00 27.55 kg/m2 Comm on [facility] oximetry 2023-05-15 08:00:00 100 % Commo n [facility] respiratory rate 2023-05-15 08:00:00 17 /min [facility] blood pressure systolic 2023-05-15 08:00:00 131 mm[Hg] Common [facility] blood pressure diastolic 2023-05-15 08:00:00 74 mm[Hg] Common [facility] height 2023-04-14 14:00:00 70 [in_i] Commo n [facility] weight 2023-04-14 14:00:00 201 [lb_av] Comm on [facility] temperature 2023-04-14 14:00:00 98 [degF] Comm on [facility] bmi 2023-04-14 14:00:00 28.84 kg/m2 Comm on [facility] oximetry 2023-04-14 14:00:00 95 % Commo n [facility] respiratory rate 2023-04-14 14:00:00 17 /min [facility] blood pressure systolic 2023-04-14 14:00:00 127 mm[Hg] Common [facility] blood pressure diastolic 2023-04-14 14:00:00 71 mm[Hg] [facility] Systolic blood pressure 2023-02-04 21:08:00 136 mm[Hg] [facility] Diastolic blood pressure 2023-02-04 21:08:00 77 mm[Hg] [facility] Heart rate 2023-02-04 21:08:00 73 /[facility] 2023-02-04 21:08:00 18 /min [facility] Body height 2023-02-04 21:08:00 177.8 cm [facility] Body weight 2023-02-04 21:08:00 94.167 kg [facility] BMI 2023-02-04 21:08:00 29.79 kg/m2 [facility] Oxygen saturation in Arterial blood by Pulse oximetry 2023-02-04 21:08:00 98 /min [facility] height 2022-06-11 15:45:00 70 [in_i] Commo n [facility] weight 2022-06-11 15:45:00 208.4 [lb_av] Co mmon [facility] temperature 2022-06-11 15:45:00 97.3 [degF] Com mon [facility] bmi 2022-06-11 15:45:00 29.9 kg/m2 Commo n [facility] oximetry 2022-06-11 15:45:00 99 % Comm n [facility] respiratory rate 2022-06-11 15:45:00 18 /min [facility] blood pressure systolic 2022-06-11 15:45:00 129 mm[Hg] [facility] blood pressure diastolic 2022-06-11 15:45:00 72 mm[Hg] Common [facility] Body weight 2021-12-24 14:52:00 90.719 kg [facility] BMI 2021-12-24 14:52:00 27.89 kg/m2 [facility] Systolic blood pressure 2021-12-17 09:49:22 131 mm[Hg] [facility] Diastolic blood pressure 2021-12-17 09:49:22 84 mm[Hg] [facility] Heart rate 2021-12-17 09:49:22 71 /min Unive [facility] Respiratory rate 2021-12-17 09:49:22 18 /min [facility] Oxygen saturation in Arterial blood by Pulse oximetry 2021-12-17 09:49:22 97 /min [facility] Body temperature 2021-12-17 05:37:00 36.06 Dea [facility] Body weight 2021-12-17 03:39:00 90.719 kg [facility] BMI 2021-12-17 03:39:00 27.89 kg/m2 [facility] Systolic blood pressure 2021-12-16 22:29:00 177 mm[Hg] [facility] Diastolic blood pressure 2021-12-16 22:29:00 81 mm[Hg] [facility] Heart rate 2021-12-16 22:29:00 82 /min Unive [facility] Body temperature 2021-12-16 22:29:00 37.33 Dea [facility] Respiratory rate 2021-12-16 22:29:00 16 /min [facility] Oxygen saturation in Arterial blood by Pulse oximetry 2021-12-16 22:29:00 95 /min [facility] Systolic blood pressure 2021-02-03 17:16:00 180 mm[Hg] [facility] Diastolic blood pressure 2021-02-03 17:16:00 93 mm[Hg] [facility] Heart rate 2021-02-03 17:16:00 78 /min Unive [facility] Body temperature 2021-02-03 17:16:00 36.94 Dea [facility] Respiratory rate 2021-02-03 17:16:00 14 /min [facility] Body height 2021-02-03 17:16:00 180.3 cm [facility] Body weight 2021-02-03 17:16:00 104.327 kg [facility] BMI 2021-02-03 17:16:00 32.08 kg/m2 [facility] Oxygen saturation in Arterial blood by Pulse oximetry 2021-02-03 17:16:00 96 /min [facility] Heart rate 2020-03-03 20:43:00 77 /min [facility] Respiratory rate 2020-03-03 20:43:00 20 /min [facility] Oxygen saturation in Arterial blood by Pulse oximetry 2020-03-03 20:43:00 97 /min [facility] Systolic blood pressure 2020-03-03 17:20:00 166 mm[Hg] [facility] Diastolic blood pressure 2020-03-03 17:20:00 94 mm[Hg] [facility] [facility] Body temperature 2020-03-03 17:20:00 36.78 Dea [facility] Body height 2020-03-01 03:19:00 177.8 cm [facility] Body weight 2020-03-01 03:19:00 99.791 kg [facility] BMI 2020-03-01 03:19:00 31.57 kg/m2 [facility] Systolic blood pressure 2019-06-03 14:29:00 146 mm[Hg] [facility] Diastolic blood pressure 2019-06-03 14:29:00 82 mm[Hg] [facility] Heart rate 2019-06-03 14:29:00 90 /min [facility] Respiratory rate 2019-06-03 14:14:00 16 /min [facility] Body height 2019-06-03 14:14:00 180.3 cm [facility] Body weight 2019-06-03 14:14:00 101.878 kg [facility] BMI 2019-06-03 14:14:00 31.33 kg/m2 [facility] Procedures Procedure Date / Time Performed Performing Clinician Source POCT GLUCOSE (AUTOMATED) 2023-09-26 16:44:00 Rose Nunn [facility] PROCALCITONIN 2023-09-26 16:23:00 [facility] 2023-09-26 12:23:00 Rose Nunn [facility] CBC WITH DIFF 2023-09-26 09:31:00 Edwige Brooke [facility] MAGNESIUM 2023-09-26 09:31:00 Maverick Nunn [facility] BASIC METABOLIC PANEL (NA, K, CL, CO2, GLUCOSE, BUN, CREATININE, CA) 2023-09-26 09:31:00 Maverick Nunn [facility] COMP. METABOLIC PANEL (44154) 2023-09-26 09:31:00 Louise Iyer [facility] POCT GLUCOSE (AUTOMATED) 2023-09-26 01:09:00 Rose Nunn [facility] POCT GLUCOSE (AUTOMATED) 2023-09-25 21:32:00 Rose Nunn [facility] POCT GLUCOSE (AUTOMATED) 2023-09-25 16:15:00 Rose Nunn [facility] TRANSTHORACIC ECHO (TTE) COMPLETE W/ CONTRAST 2023-09-25 14:20:00 Maverick Nunn [facility] US RETROPERITONEAL COMPLETE 2023-09-25 14:01:25 Maverick Nunn [facility] CBC WITH DIFF 2023-09-25 09:52:00 [facility] GLYCOS[facility]EMOGLOBIN (A1C) 2023-09-25 09:52:00 Edwige Brooke [facility] N-TERMINAL PRO-BNP 2023-09-25 09:52:00 Maverick Nunn [facility] LACTIC ACID WHOLE BLOOD 2023-09-25 09:52:00 Casey Nunn mmad [facility] PHOSPHORUS 2023-09-25 09:52:00 Maverick Nunn [facility] LIPID PANEL (77303)(TOTAL CHOLESTEROL, TRIGLYCERIDES, HDL) 2023-09-25 09:52:00 Edwige Brooke [facility] URINALYSIS 2023-09-25 07:13:00 Edvin Gutierrez [facility] CT HEAD WO CONTRAST 2023-09-25 03:56:00 Edvin Gutierrez [facility] POCT GLUCOSE(AGE >30DAYS) 2023-09-25 03:52:00 Edvin Gutierrez [facility] POCT GLUCOSE (AUTOMATED) 2023-09-25 03:50:00 Wilfredo Gutierrez [facility] LACTIC ACID WHOLE BLOOD 2023-09-25 03:49:00 Urmila Gutierrez [facility] CREATINE KINASE 2023-09-25 03:44:00 Edvin Gutierrez [facility] TROPONIN I 2023-09-25 03:44:00 Edvin Gutierrez [facility] THYROID STIMULATING HORMONE 2023-09-25 03:44:00 Edvin Gutierrez [facility] COMP. METABOLIC PANEL (20973) 2023-09-25 03:44:00 Edvin Gutierrez [facility] CBC WITH DIFF 2023-09-25 03:44:00 Edvin Gutierrez [facility] HB ECG ROUTINE & RHYTHM STRIP 2023-09-25 03:04:02 Edvin Gutierrez [facility] THYROID STIMULATING HORMONE 2023-02-04 22:30:00 Yaz Dutton [facility] COMP. METABOLIC PANEL (69315) 2023-02-04 22:30:00 Yaz Dutton [facility] LIPID PANEL (55097)(TOTAL CHOLESTEROL, TRIGLYCERIDES, HDL) 2023-02-04 22:30:00 Yaz Dutton [facility] CBC WITH DIFF 2023-02-04 22:30:00 Yaz Dutton [facility] GLYCOSYLATED HEMOGLOBIN (A1C) 2023-02-04 22:30:00 Yaz Dutton [facility] ASSIGNMENT OF BENEFITS 2023-02-03 22:28:02 Docto r Unassigned, [facility] POCT GLUCOSE (AUTOMATED) 2021-12-17 10:23:00 Tricia Cardona [facility] POCT GLUCOSE (AUTOMATED) 2021-12-17 08:42:00 Tricia Cardona [facility] CT ORBITS W CONTRAST 2021-12-17 07:40:20 Esteban Law [facility] BASIC METABOLIC PANEL (NA, K, CL, CO2, GLUCOSE, BUN, CREATININE, CA) 2021-12-17 05:29:00 Esteban Law [facility] CONSENT/REFUSAL FOR DIAGNOSIS AND TREATMENT 2021-12-17 03:52:39 Doctor Unassigned, [facility] RAPID INFLUENZA A/B 2021-12-16 23:03:00 Demarco Dee [facility] COVID-19 (ID NOW RAPID TESTING) 2021-12-16 23:03:00 Demarco Dee [facility] NOTICE OF PRIVACY PRACTICES 2021-12-16 22:22:02 Doctor Unassigned, [facility] CONSENT/REFUSAL FOR DIAGNOSIS AND TREATMENT 2021-12-16 22:19:23 Doctor Unassigned, [facility] CONSENT/REFUSAL FOR DIAGNOSIS AND TREATMENT 2021-02-03 16:56:55 Doctor Unassigned, [facility] XR CHEST 2 VW 2020-09-03 19:28:20 Sloan Spann [facility] ASSIGNMENT OF BENEFITS 2020-09-03 19:15:12 Docto r Unassigned, [facility] POCT GLUCOSE (AUTOMATED) 2020-03-03 18:27:00 Karen Bass [facility] POCT GLUCOSE (AUTOMATED) 2020-03-03 14:18:00 Karen Bass [facility] HEPATIC FUNCTION PANEL (01018) (ALB,T.PRO,BILI T,BU/BC,ALT,AST,ALK PHOS) 2020-03-03 11:58:00 Armani Alba [facility] BASIC METABOLIC PANEL (NA, K, CL, CO2, GLUCOSE, BUN, CREATININE, CA) 2020-03-03 11:58:00 Armani Alba [facility] SARS-COV-2 IGG 2020-03-03 11:58:[facility]) 2020-03-03 03:16:00 Karen Bass [facility] US ABDOMEN COMPLETE 2020-03-03 00:30:34 [facility] ([facility]) 2020-03-02 22:13:00 Karen Bass [facility] COVID-19 (ID NOW RAPID TESTING) 2020-03-02 20:34:00 Armani Alba [facility] POCT GLUCOSE (AUTOMATED) 2020-03-02 18:08:00 Karen Bass [facility] POCT GLUCOSE (AUTOMATED) 2020-03-02 14:39:00 Karen Bass [facility] POCT GLUCOSE (AUTOMATED) 2020-03-02 03:14:00 Karen Bass [facility] POCT GLUCOSE (AUTOMATED) 2020-03-02 02:08:00 Karen Bass [facility] POCT GLUCOSE (AUTOMATED) 2020-03-01 23:21:00 Karen Bass [facility] ECHO ROUTINE W/DOPPLER COLOR 2020-03-01 21:04:38 Bao Mcghee [facility] POCT GLUCOSE (AUTOMATED) 2020-03-01 18:11:00 Karen Bass [facility] PNEUMOCOCCAL ANTIGEN 2020-03-01 17:08:00 Osman Powell [facility] BLOOD CULTURE SCREEN 2020-03-01 12:30:00 Osman Powell [facility] LACTATE DEHYDROGENASE 2020-03-01 12:30:00 Alexy Powell [facility] FERRITIN SERUM 2020-03-01 12:30:00 Domingo Powell [facility] C-REACTIVE PROTEIN 2020-03-01 12:30:00 Domingo Powell [facility] FREE T4 2020-03-01 12:30:00 Domingo Powell [facility] THYROID STIMULATING HORMONE 2020-03-01 12:30:00 Domingo Powell [facility] D-DIMER 2020-03-01 12:30:00 Domingo Powell [facility] PROCALCITONIN 2020-03-01 12:30:00 Domingo Powell [facility] RESPIRATORY PANEL BY PCR 2020-03-01 12:30:00 Nanette Mcghee [facility] COVID-19 (MOLECULAR TESTING NUCLEIC ACID AMPLIFICATION) 2020-03-01 12:30:00 Domingo Powell [facility] LAB ONLY COVID INTERPRETATION 2020-03-01 12:30:00 Domingo Powell [facility] SARS-COV-2 IGM 2020-03-01 12:30:00 Colette Bates [facility] XR CHEST 1 VW 2020-03-01 03:46:27 Edwige Shearer [facility] TROPONIN I 2020-03-01 03:29:00 Edwige Shearer [facility] COMP. METABOLIC PANEL (40627) 2020-03-01 03:29:00 Edwige Shearer [facility] LIPID PANEL (95138)(TOTAL CHOLESTEROL, TRIGLYCERIDES, HDL) 2020-03-01 03:29:00 Domingo Powell [facility] CBC WITH DIFF 2020-03-01 03:29:00 Edwige Shearer [facility] GLYCOSYLATED HEMOGLOBIN (A1C) 2020-03-01 03:29:00 Andre [facility] N-TERMINAL PRO-BNP 2020-03-01 03:29:00 Edwige Shearer [facility] COVID-19 (ID NOW RAPID TESTING) 2020-03-01 03:29:00 Edwige Shearer [facility] HB ECG ROUTINE & RHYTHM STRIP 2020-03-01 03:17:32 Edwige Shearer [facility] NOTICE OF PRIVACY PRACTICES 2020-03-01 03:05:39 Doctor Unassigned, [facility] CONSENT/REFUSAL FOR DIAGNOSIS AND TREATMENT 2020-03-01 03:04:03 Doctor Unassigned, [facility] Encounters Start Date/Time End Date/Time Encounter Type Admission Type Attending Clinicians Care Facility Care Department Encounter ID Source 2023-05-13 11:19:00 Outpatient Aisha El [facility] [id number] [facility] 2023-04-14 14:28:00 Outpatient Aisha El [facility] [id number] [facility] 2023-04-13 13:57:01 Outpatient Aisha El [facility] [id number] [facility] 2022-06-11 15:07:02 Outpatient [facility] [id number] [facility] 2022-06-09 10:49:01 Outpatient [facility] [id number] [facility] 2021-04-17 14:28:06 Outpatient [facility] [id number] [facility] 2021-01-19 10:21:24 Emergency [facility] [id number] [facility] 2023-09-30 00:00:00 2023-09-30 00:00:00 (TEL) [facility] [id number] [facility] 2023-09-28 00:00:00 2023-09-29 08:16:41 Transition of Care Adrián Noelle Erik KARTHIK ZO PEREZ 1.2.840.114 350.1.13.10 4.2.7.2.686 [id number] [facility] 2023-09-24 22:03:00 2023-09-26 15:53:00 Inpatient Carolynn MAVERICK NUNN [facility] [id number] [facility] 2023-09-24 22:03:00 2023-09-26 15:53:00 Hospital Encounter Edvin Gutierrez [facility] 1.2.840.114 350.1.13.10 4.2.7.2.686 [id number] [facility] 2023-09-16 00:00:00 2023-09-16 00:00:00 (TEL) [facility] [id number] [facility] 2023-08-31 00:00:00 2023-08-31 00:00:00 (TEL) [facility]C [facility] [id number] [facility] 2023-08-31 00:00:00 2023-08-31 00:00:00 (TEL) [facility] [id number] [facility] 2023-08-31 00:00:00 2023-08-31 00:00:00 (TEL) [facility] [id number] [facility] 2023-06-25 00:00:00 2023-06-25 00:00:00 (TEL) [facility] [id number] [facility] 2023-06-25 00:00:00 2023-06-25 00:00:00 (TEL) [facility]C ST[facility] [id number] [facility] 2023-06-23 00:00:00 2023-06-23 00:00:00 (TEL) [facility]C [facility]C [id number] [facility] 2023-06-19 00:00:00 2023-06-19 00:00:00 PREV VISIT EST AGE 65 & OVER [facility]LMLC STLMLC [id number] [facility] 2023-06-18 00:00:00 2023-06-18 00:00:00 (TEL) [facility] [id number] [facility] 2023-06-11 00:00:00 2023-06-11 00:00:00 (TEL) [facility]C ST[facility]C [id number] [facility] 2023-06-08 00:00:00 2023-06-08 00:00:00 (WEB) [facility]LMLC ST[facility]C [id number] [facility] 2023-06-05 00:00:00 2023-06-05 00:00:00 (TEL) [facility]LMLC ST[facility]C [id number] [facility] 2023-05-22 00:00:00 2023-05-22 00:00:00 (TEL) STLMLC ST[facility]C [id number] [facility] 2023-05-15 00:00:00 2023-05-15 00:00:00 OFFICE VISIT ESTAB PT LEVEL 4 [facility]C STL[facility]C [id number] [facility] 2023-05-07 00:00:00 2023-05-07 00:00:00 (TEL) STLMLC ST[facility]C [id number] [facility] 2023-04-21 00:00:00 2023-04-21 00:00:00 (TEL) STLMLC STLMLC [id number] [facility] 2023-04-16 00:00:00 2023-04-16 00:00:00 (TEL) STLMLC [facility]C [id number] [facility] 2023-04-16 00:00:00 2023-04-16 00:00:00 (TEL) [facility]LMLC ST[facility]C [id number] [facility] 2023-04-15 00:00:00 2023-04-15 00:00:00 (TEL) [facility] [id number] [facility] 2023-04-14 00:00:00 2023-04-14 00:00:00 OFFICE VISIT NEW PT LEVEL 4 [facility]LMLC STL[facility]C [id number] [facility] 2023-04-06 00:00:00 2023-04-06 00:00:00 Refill Yaz Dutton [facility] 1.2.840.114 350.1.13.10 4.2.7.2.686 [id number] [facility] 2023-02-11 00:00:00 2023-02-11 00:00:00 Case Management Yaz Dutton [facility] 1.2.840.114 350.1.13.10 4.2.7.2.686 [id number] [facility] 2023-02-04 16:45:00 2023-02-04 16:45:00 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 Lab, Ang - Db Marija Yaz [facility] 1.84.114 350.1.13.10 4.2.7.2.686 [id number] [facility] 2023-02-04 15:00:00 2023-02-04 16:15:25 Outpatient R YAZ DUTTON [facility] [id number] [facility] 2023-02-04 15:00:00 2023-02-04 16:15:25 Office Visit Yaz Dutton Erik [facility] 1.84.114 350.1.13.10 4.2.7.2.686 [id number] [facility] 2023-02-03 00:00:00 2023-02-03 00:00:00 Orders Only Doctor Unassigned, [facility] 1..114 350.1.13.10 4.2.7.2.686 [id number] [facility] 2022-10-01 08:00:00 2022-10-01 08:00:00 Outpatient R YAZ DUTTON [facility] [id number] [facility] 2022-06-11 00:00:00 2022-06-11 00:00:00 OFFICE VISIT NEW PT LEVEL 3 [facility] [id number] [facility] 2021-12-24 09:15:00 2021-12-24 10:41:41 Outpatient R [facility] [id number] [facility] 2021-12-24 09:15:00 2021-12-24 10:41:41 Office Visit Krista Nunn [facility] [place] 1..114 350.1.13.10 4.2.7.2.686 [id number] [facility] 2021-12-18 00:00:00 2021-12-18 00:00:00 Patient Secure Msg Doctor Unassigned, [facility] 1.84.114 350.1.13.10 4.2.7.2.686 [id number] [facility] 2021-12-16 22:44:00 2021-12-17 05:37:00 Emergency FahadAzar [facility] 1.84.114 350.1.13.10 4.2.7.2.686 [id number] [facility] 2021-12-16 17:32:00 2021-12-16 21:20:00 Emergency X LUIZDEMARCO [facility] ERT [id number] [facility] 2021-12-16 17:32:00 2021-12-16 21:20:00 Emergency X BINDU MCGHEE [facility] ERT [id number] [facility] 2021-12-16 17:32:00 2021-12-16 21:20:00 Emergency Demarco Dee [facility] 1.840.114 350.1.13.10 4.2.7.2.686 [id number] [facility] 2021-03-24 10:55:00 2021-03-24 15:41:00 Outpatient Urgent Jaciel Suh [facility] [id number] [facility] 2021-03-24 10:55:00 2021-03-24 10:55:00 Outpatient [facility] [id number] [facility] 2021-02-03 11:18:00 2021-02-03 11:41:00 Emergency X BRAYDEN CEE [facility] ERT [id number] [facility] 2021-02-03 11:18:00 2021-02-03 11:41:00 Emergency Brayden Cee [facility] 1..840.114 350.1.13.10 4.2.7.2.686 [id number] [facility] 2020-11-01 15:33:10 2020-11-01 15:53:10 Laboratory Only Lab, Adc [facility] Azul Butts [facility] Office Building One 1..114 350.1.13.10 4.2.7.2.686 [id number] [facility] 2020-11-01 15:40:00 2020-11-01 15:40:00 Outpatient R AZUL KATHLEEN [facility] [id number] [facility] 2020-09-03 14:15:00 2020-09-03 23:59:00 Hospital Encounter Radiology [facility] 1..114 350.1.13.10 4.2.7.2.686 [id number] [facility] 2020-09-03 00:00:00 2020-09-03 00:00:00 Outpatient R RADIOLOGY [facility] [id number] [facility] 2020-09-03 00:00:00 2020-09-03 00:00:00 Orders Only Doctor Unassigned, [facility] 1..114 350.1.13.10 4.2.7.2.686 [id number] [facility] 2020-08-14 00:00:00 2020-08-14 00:00:00 Refill Freddy Abreu [facility] Building 1..114 350.1.13.10 4.2.7.2.686 [id number] [facility] 2020-08-14 00:00:00 2020-08-14 00:00:00 Telephone Freddy Abreu [facility] Building 1..114 350.1.13.10 4.2.7.2.686 [id number] [facility] 2020-06-04 13:40:00 2020-06-04 13:40:00 Outpatient R LA NENA ERMA [facility] [id number] [facility] 2020-05-14 14:40:00 2020-05-14 14:40:00 Outpatient R LA NENAERMA NEWSOME [facility] [id number] [facility] 2020-05-14 11:30:00 2020-05-14 11:30:00 Outpatient R ERMA DEUTSCH [facility] [id number] [facility] 2020-03-05 00:00:00 2020-03-05 00:00:00 Transition of Care [address] 1.2840.114 350.1.13.10 4.2.7.2.686 [id number] [facility] 2020-02-29 21:10:00 2020-03-03 16:51:00 Hospital Encounter Edwige Shearer, Newton Trotter, [facility], [facility] 1.84.114 350.1.13.10 4.2.7.2.686 [id number] [facility] 2019-11-12 00:00:00 2019-11-12 00:00:00 Freddy Jean [facility] 1.2840.114 350.1.13.10 4.2.7.2.686 [id number] [facility] 2019-10-07 12:00:00 2019-10-07 12:30:00 Office Visit Freddy Abreu [facility] Building 1.2.840.114 350.1.13.10 4.2.7.2.686 [id number] [facility] 2019-10-07 12:00:00 2019-10-07 12:00:00 Outpatient R ABREUFREDDY [facility] [id number] [facility] 2019-06-03 08:59:21 2019-06-03 10:26:21 Office Visit Abreu Freddy [facility] Sergei Velázquez [facility] 1.2.840.114 350.1.13.10 4.2.7.2.686 [id number] [facility] 2019-06-03 09:00:00 2019-06-03 09:00:00 Outpatient R ABREU, FREDDY [facility] [id number] [facility] Results Test Description Test Time Test Comments Results Result Co mments Source [facility] GLUCOSE (AUTOMATED)2023-09-26 16:45:29* Test Item Value Reference Range Interpretation Comme nts POCT GLU (test code = 0529033522) 124 mg/dL 70-110 H Lab Interpretation (test cod e = 01755-2) Abnormal [facility] GLUCOSE (AUTOMATED)2023-09-26 12:33:31* Test Item Value Reference Range Interpretation Comme nts POCT GLU (test code = 1375553485) 152 mg/dL 70-110 H Lab Interpretation (test cod e = 34364-2) Abnormal [facility] GLUCOSE (AUTOMATED)2023-09-26 01:10:49* Test Item Value Reference Range Interpretation Comme nts POCT GLU (test code = 6813118031) 190 mg/dL 70-110 H Lab Interpretation (test cod e = 52533-8) Abnormal [facility] GLUCOSE (AUTOMATED)2023-09-25 21:33:54* Test Item Value Reference Range Interpretation Comme nts POCT GLU (test code = 6210252291) 148 mg/dL 70-110 H Lab Interpretation (test cod e = 84761-9) [facility] 21:23:33* Test Item Value Reference Range Interpretation Comme nts Height (test code = 3437987890) 70 in Weight (test code = 6327789749) 190 lbs Systolic BP (test code = 4568268375) 94 mmHg Diastolic BP (test code = 3737600024) 59 mmHg Heart Rate (test code = 9155046462) 69 bpm BSA (test code = 4398072408) 2.04 m2 LVOT diameter (test code = 4951328115) 2.18 cm LVOT area (test code = 1835953587) 3.70 cm2 Ao root diam (test code = 9001576073) 3.40 cm Aortic root (test code = 6511371713) 3.4 cm Ao root annulus (test code = 4056658692) 3.4 cm LA size (test code = 2660665644) 3.7 cm MV Peak E Warren (test code = 9907778769) 82.3 cm/s MV Peak A Warren (test code = 8801659246) 71.3 cm/s E/A ratio (test code = 4187481644) 1.15 ratio E wave decelartion time (test code = 7251761381) 0.28 s MV Prop V (test code = 8165985192) 38.90 cm/s LAV(MOD-sp4) (test code = 3712213301) 32.40 mL Tapse (test code = 3495699027) 2.6 cm LVOT stroke volume (test code = 5029876119) 72.40 cm3 LVOT peak warren (test code = 1286924349) 98.0 cm/s LVOT mn grad (test code = 4180506947) 1.8 mmHg AV LVOT peak gradient (test code = 1818777804) 3.8 mmHg LVOT peak VTI (test code = 6574740619) 19.4 cm LV V1 mean (test code = 8324481950) 63.30 cm/s Ao peak warren (test code = 4074731451) 125.1 cm/s AV area peak warren (test code = 6398219550) 2.9 cm2 Ao max PG (test code = 0433366663) 6.30 mm[Hg] AV peak gradient (test code = 7789518875) 6.3 mmHg LA Volume Index (BP) (test code = 3230681847) 16.5 mL/m2 LA volume (BP) (test code = 0065798024) 33.7 mL LAV(MOD-sp2) (test code = 6372324907) 27.50 mL LVIDD (test code = 1355561854) 4.20 cm Left Ventricular End Diastolic Volume by Teichholz Method (test code = 5323148) 77.9 mL IVS (test code = 1281707649) 1.57 cm Interventricular Septum Diastolic Thickness by 2D (test code = 0477571) 1.57 cm LVPWD (test code = 9057721808) 1.09 cm PW (test code = 0152181393) 1.09 cm 0.6-1.1 EF(Teich) (test code = 4945309937) 47.40 % LVIDS (test code = 1257690584) 3.20 cm Left Ventricular End Systolic Volume by Teichholz Method (test code = 1071151) 41.0 mL FS (test code = 1755475987) 24 % EF - 2D (test code = 90173708) 47.40 % Radiology Study observation (narrative) (test code = 32445-1) SHRUTHI (test code = SHRUTHI) ?Left?Ventricle: Left ventricle size is normal. Mildly increased wall thickness. Normal wall motion. ?Right?Ventricle: Right ventricle size is normal. Normal systolic function. ?Pulmonic?Valve: Pulmonic valve is normal in structure and function. ?Tricuspid?Valve: Tricuspid valve structure is normal. Trace transvalvular regurgitation. Insufficient tricuspid regurgitation jet to estimate RVSP, but probably normal. ?RA pressure is 0-5 mmHg. Left VentricleLeft ventricle size is normal. Mildly increased wall thickness. Normal wall motion. Low normal systolic function with a visually estimated EF of 50 - 55%. There is pseudonormal diastolic dysfunction.Right VentricleRight ventricle size is normal. Normal systolic function.Left AtriumLeft atrium is mildly dilated.Right AtriumRight atrium size is normal.Mitral ValveMildly thickened leaflets. Mild mitral annular calcification. Trace transvalvular regurgitation.Tricuspi d ValveTricuspid valve structure is normal. Trace transvalvular regurgitation. Insufficient tricuspid regurgitation jet to estimate RVSP, but probably normal. RA pressure is 0-5 mmHg.Aortic ValveMildly calcified cusps. No transvalvular regurgitation.Pulmonic ValvePulmonic valve is normal in structure and function. Physiologically normal transvalvular regurgitation.Ascendin g AortaMildly enlarged ascending aorta and aortic root.PericardiumThe pericardium is normal. No pericardial effusion.Study DetailsA complete echocardiogram was performed using 2D, color flow Doppler and spectral Doppler. 3 mL of Optison ultrasound enhancing agent used. [facility] GLUCOSE (AUTOMATED)2023-09-25 16:17:28* Test Item Value Reference Range Interpretation Comme nts POCT GLU (test code = [id number]) 140 mg/dL 70-110 H Lab Interpretation (test cod e = 56377-3) [facility] RETROPERITONEAL [id number] 14:05:12 HISTORY: EDWARD. TECHNIQUE: Both kidneys are evaluated in multiple planes with the patientin differentpositions. FINDINGS: Comparison has been made with previous ultrasound study of03/02/2020. RIGHT KIDNEY: Measures 12.1 x 6.2 x 5.6 cm with cortical thicknessmeasuring up to 14 mm. No hydronephrosis or perinephric fluid collectiondetected. LEFT KIDNEY: Measures 9.9 x 6.5 x 5.4 cm in size with cortic al thicknessmeasuring up to 11 mm. ?No hydronephrosis or perinephric fluid collection.Left kidney measured 12.3 x 6.6 x 8.1 cm in the previous study. I believethe decrease in measurement in current study is possibly technical errorrather than actual significant decrease in the size of the kidney. Quick look at the urinary bladder showed no gross pathology. Amount ofurine accumulated before patient voided was approximately 396 mL andimmediately after patient voided was 107 mL. CONCLUSIONS: Incomplete emptying of the urinary bladder noted, otherwisenormal study.[facility] HEAD WO [id number] 13:46:02EXAM: CT HEAD WO CONTRAST HISTORY: 67 years-old Male; Provided indication: Mental status change,unknown cause, Recurrent Falls, X3 today. Pt on Plavix . TECHNIQUE: Axial CT of the head was performed and reconstructed at 5 mmintervals. Coronal and sagittal reformatted images were generated. COMPARISON: None FINDINGS: The ventricles and cerebral sulci are normal in caliber and configuration.No midline shift or pathological extra-axial fluid collection is present.The basal cisterns are unremarkable. No acute intraparenchymal hemorrhage or significant mass effect isvisualized. No parenchymal attenuation abnormality is seen. The blair-whitematter differentiation is preserved. ? The mastoid air cells and paranasal air sinuses are clear. The calvariumand central skull base are unremarkable. Intracranial atherosclerosis.[facility] Whole Blood 2023-09-25 10:05:36* Test Item Value Reference Range Interpretation Comme nts LACTIC ACID (test code = 0244783896) 1.76 mmol/L 0.50-2.20 Lab Interpretation (test cod e = 04625-7) Normal [facility]burgThyroid Stimulating [id number] 04:53:11 * Test Item Value Reference Range Interpretation Comme nts TSH (test code = 7248253523) 1.34 0.45-4.70 Lab Interpretation (test cod e = 86177-5) Normal [facility]roponin [id number] 04:34:34* Test Item Value Reference Range Interpretation Comme nts TROPONIN I (test code = 8010585662) 0.005 ng/mL <=0.034 SHRUTHI (test code = SHRUTHI) Reference (Normal) Range (defined by the 99th percentile reference limit): <= 0.034 ng/mL Note: Cardiac troponin begins to rise 3-4 hours after the onset of ischemia. Repeat in 4-6 hours if the sample was drawn within 3-4 hours of the onset of the symptom and found normal. Diagnosis of myocardial injury is made with acute changes in cTn concentrations with at least one serial sample above the 99th percentile upper reference limit (URL), taken together with the patient's clinical presentation. Biotin has been reported to cause a negative bias, interpret results relative to patient's use of biotin. Lab Interpretation (test code = 46676-9) Normal [facility]. Metabolic Panel (34169)2023-09-25 04:22:31* Test Item Value Reference Range Interpretation Comme nts NA (test code = 2421026379) 137 mmol/L 135-145 K (test code = 5472076157) 4.2 mmol/L 3.5-5.0 CL (test code = 7022202632) 99 mmol/L 98-108 CO2 TOTAL (test code = 0748514836) 26 mmol/L 23-31 AGAP (test code = 3545298109) 12 2-16 BUN (test code = 2118615950) 39 mg/dL 7-23 H GLUCOSE (test code = 8171426672) 184 mg/dL 70-110 H CREATININE (test code = 2160-0) 3.52 mg/dL 0.60-1.25 H TOTAL BILI (test code = 8135018576) 0.9 mg/dL 0.1-1.1 CALCIUM (test code = 0616922222) 8.8 mg/dL 8.6-10.6 T PROTEIN (test code = 4743500751) 6.8 g/dL 6.3-8.2 ALBUMIN (test code = 7496081520) 4.1 g/dL 3.5-5.0 ALK PHOS (test code = 5690845184) 66 U/L 34-122 ALTv (test code = 1742-6) 21 U/L 5-50 AST(SGOT) (test code = 7869360191) 36 U/L 13-40 eGFR (test code = 99508-8) 18.1 mL/min/1.73m2 CKD-EPI eGFR (2020). Assuming creatinine has been stable day-to-day for at least three months, the eGFR indicates Category G4 (15 - 29 mL/min/1.73 m2) Lab Interpretation (test code = 97356-7) [facility]normal [facility]ine [id number] 04:22:31* Test Item Value Reference Range Interpretation Comme nts CK (test code = 1759119422) 95 U/L 33-194 Lab Interpretation (test cod e = 71991-3) [id number] 04:11:34* Test Item Value Reference Range Interpretation Comme nts WBC (test code = 6690-2) 8.07 4.20-10.70 RBC (test code = 789-8) 4.66 4.26-5.52 HGB (test code = 718-7) 13.5 g/dL 12.2-16.4 HCT (test code = 4544-3) 41.4 % 38.4-49.3 MCV (test code = 787-2) 88.8 fL 81.7-95.6 MCH (test code = 785-6) 29.0 pg 26.1-32.7 MCHC (test code = 786-4) 32.6 g/dL 31.2-35.0 RDW-SD (test code = 68614-3) 45.8 fL 38.5-51.6 RDW-CV (test code = 788-0) 14.1 % 12.1-15.4 PLT (test code = 777-3) 164 150-328 MPV (test code = 79648-4) 11.6 fL 9.8-13.0 NRBC/100 WBC (test code = 8756653787) 0.0 0.0-10.0 NRBC x10^3 (test code = 3981314453) See_Comment [Automated me ssage] The system which generated this result transmitted reference range: 10*3/?L. The reference range was not used to interpret this result as normal/abnormal. GRAN MAT (NEUT) % (test code = 770-8) 69.7 % IMM GRAN % (test code = 4219207641) 0.40 % LYMPH % (test code = 736-9) 18.3 % MONO % (test code = 5905-5) 9.9 % EOS % (test code = 713-8) 1.2 % BASO % (test code = 706-2) 0.5 % GRAN MAT x10^3(ANC) (test code = 2980063519) 5.62 10*3/uL 1.99-6.95 IMM GRAN x10^3 (test code = 5831578614) 0.03 10*3/uL 0.00-0.06 LYMPH x10^3 (test code = 731-0) 1.48 10*3/uL 1.09-3.23 MONO x10^3 (test code = 742-7) 0.80 10*3/uL 0.36-1.02 EOS x10^3 (test code = 711-2) 0.10 10*3/uL 0.06-0.53 BASO x10^3 (test code = 704-7) 0.04 10*3/uL 0.01-0.09 [facility] Acid Whole [id number] 03:56:10* Test Item Value Reference Range Interpretation Comme nts LACTIC ACID (test code = 8202194536) 3.15 mmol/L 0.50-2.20 H Lab Interpretation (test cod e = 58030-4) Abnormal [facility] GLUCOSE (AUTOMATED)2023-09-25 03:52:45* Test Item Value Reference Range Interpretation Comme nts POCT GLU (test code = 4713507976) 183 mg/dL 70-110 H Lab Interpretation (test cod e = 96090-4) Abnormal [facility] GLUCOSE(AGE >30DAYS)2023-09-25 03:52:00* Test Item Value Reference Range Interpretation Comme nts Lab Interpretation (test cod e = 89762-7) Normal [facility]MOGLOBIN [id number] 00:00:00* Test Item Value Reference Range Interpretation Comme nts A1C (test code = 4548-4) 7.9 HEMOGLOBIN [id number] 00:00:00* Test Item Value Reference Range Interpretation Comme nts A1C (test code = 4548-4) 7.9 HEMOGLOBIN [id number] 00:00:00* Test Item Value Reference Range Interpretation Comme nts A1C (test code = 4548-4) 8.8 HEMOGLOBIN [id number] 00:00:00* Test Item Value Reference Range Interpretation Comme nts A1C (test code = 4548-4) 10.8 THYROID STIMULATING [id number] 05:50:59* Test Item Value Reference Range Interpretation Comme nts TSH (test code = 7110703326) 0.43 See_Comment L [Automated messa ge] The system which generated this result transmitted reference range: 0.45 - 4.70 mIU/L. The reference range was not used to interpret this result as normal/abnormal. Lab Interpretation (test code = 56085-2) Abnormal [facility]YCOSYLATED HEMOGLOBIN (A1C)2023-02-05 05:33:48* Test Item Value Reference Range Interpretation Comme [facility] HGB A1C (test code = 4548-4) 8.9 % 4.0-5.7 H SHRUTHI (test code = SHRUTHI) Reference RangesNormal: <5.7%Prediabetes: 5.7 - 6.4%Diabetes: > 6.5% Lab Interpretation (test code = 45602-0) Abnormal [facility]burgLIPID PANEL (44789)(TOTAL CHOLESTEROL, TRIGLYCERIDES, HDL)2023-02-05 05:22:19* Test Item Value Reference Range Interpretation Comme nts CHOL (test code = 0204526438) 133 mg/dL 120-200 HDL (test code = 2629665747) 34 mg/dL >=40 L HDLC RATIO (test code = 7811070185) 3.9 <=5.0 TRIG (test code = 3410511321) 200 mg/dL 30-170 H LDL CHOL (test code = 32377-9) 59 mg/dL <=160 VLDL (test code = 8359921274) 40 mg/dL 5-60 Lab Interpretation (test cod e = 69734-2) [facility]normal [facility] METABOLIC PANEL (83763)2023-02-05 05:21:59* Test Item Value Reference Range Interpretation Comme nts NA (test code = 1576364951) 144 mmol/L 135-145 K (test code = 8589302428) 4.8 mmol/L 3.5-5.0 CL (test code = 9824648171) 105 mmol/L 98-108 CO2 TOTAL (test code = 1411517780) 31 mmol/L 23-31 AGAP (test code = 5087421070) 8 2-16 BUN (test code = 0255357624) 14 mg/dL 7-23 GLUCOSE (test code = 3994375592) 160 mg/dL 70-110 H CREATININE (test code = 8211902012) 1.04 mg/dL 0.60-1.25 TOTAL BILI (test code = 6017261069) 0.5 mg/dL 0.1-1.1 CALCIUM (test code = 5335802793) 9.7 mg/dL 8.6-10.6 T PROTEIN (test code = 5435970872) 7.8 g/dL 6.3-8.2 ALBUMIN (test code = 0500859642) 4.5 g/dL 3.5-5.0 ALK PHOS (test code = 6859080035) 73 U/L 34-122 ALTv (test code = 1742-6) 36 U/L 5-50 AST(SGOT) (test code = 2856400563) 35 U/L 13-40 eGFR (test code = 59262-4) 78.2 mL/min/1.73m2 CKD-EPI eGFR (2020). Assuming creatinine has been stable day-to-day for at least three months, the eGFR indicates Category G2 (60 - 89 mL/min/1.73 m2) Lab Interpretation (test code = 69929-5) Abnormal [facility] WITH [id number] 05:05:35* Test Item Value Reference Range Interpretation Comme nts WBC (test code = 6690-2) 6.13 See_Comment [Automated messa ge] The system which generated this result transmitted reference range: 4.20 - 10.70 10*3/?L. The reference range was not used to interpret this result as normal/abnormal. RBC (test code = 789-8) 5.01 See_Comment [Automated messa ge] The system which generated this result transmitted reference range: 4.26 - 5.52 10*6/?L. The reference range was not used to interpret this result as normal/abnormal. HGB (test code = 718-7) 14.7 g/dL 12.2-16.4 HCT (test code = 4544-3) 44.2 % 38.4-49.3 MCV (test code = 787-2) 88.2 fL 81.7-95.6 MCH (test code = 785-6) 29.3 pg 26.1-32.7 MCHC (test code = 786-4) 33.3 g/dL 31.2-35.0 RDW-SD (test code = 85647-4) 43.8 fL 38.5-51.6 RDW-CV (test code = 788-0) 13.6 % 12.1-15.4 PLT (test code = 777-3) 142 See_Comment L [Automated messa ge] The system which generated this result transmitted reference range: 150 - 328 10*3/?L. The reference range was not used to interpret this result as normal/abnormal. MPV (test code = 81860-4) 12.2 fL 9.8-13.0 NRBC/100 WBC (test code = 8964889069) 0.0 See_Comment [Automated [employer] ssage] The system which generated this result transmitted reference range: 0.0 - 10.0 /100 WBCs. The reference range was not used to interpret this result as normal/abnormal. NRBC x10^3 (test code = 3612712398) See_Comment [Automated messa ge] The system which generated this result transmitted reference range: 10*3/?L. The reference range was not used to interpret this result as normal/abnormal. GRAN MAT (NEUT) % (test code = 770-8) 72.4 % IMM GRAN % (test code = 5154174115) 0.30 % LYMPH % (test code = 736-9) 16.5 % MONO % (test code = 5905-5) 8.3 % EOS % (test code = 713-8) 1.8 % BASO % (test code = 706-2) 0.7 % GRAN MAT x10^3(ANC) (test code = 7258435843) 4.44 10*3/uL 1.99-6.95 IMM GRAN x10^3 (test code = 9358066575) 0.00-0.06 LYMPH x10^3 (test code = 731-0) 1.01 10*3/uL 1.09-3.23 L MONO x10^3 (test code = 742-7) 0.51 10*3/uL 0.36-1.02 EOS x10^3 (test code = 711-2) 0.11 10*3/uL 0.06-0.53 BASO x10^3 (test code = 704-7) 0.04 10*3/uL 0.01-0.09 Lab Interpretation (test code = 19317-1) Abnormal [facility] GLUCOSE (AUTOMATED)2021-12-17 10:27:22* Test Item Value Reference Range Interpretation Comme nts POCT GLU (test code = 5671866834) 360 mg/dL 70-110 H Lab Interpretation (test cod e = 65699-3) Abnormal [facility] GLUCOSE (AUTOMATED)2021-12-17 08:43:22* Test Item Value Reference Range Interpretation Comme nts POCT GLU (test code = 1184804726) 500 mg/dL 70-110 HH Lab Interpretation (test cod e = 16653-3) Abnormal [facility]burg[facility]ucose [id number] 13:37:00* Test Item Value Reference Range Interpretation Comme nts Glucose Fingerstick (test code = WGLUC) 277 mg/dL 70-115 TRACER LATHE SET UP OPERATOR Aqu sara Chump Glucose [id number] 12:27:00* Test Item Value Reference Range Interpretation Comme nts Glucose Fingerstick (test code = WGLUC) 280 mg/dL 70-115 TRACER LATHE SET UP OPERATOR TERRIE Shi XR CHEST 2 [id number] 20:51:53No acute cardiopulmonary disease. CHEST 2 VIEWS: HISTORY:Pneumonia TECHNIQUE:: ?PA and lateral views of the chest are obtained. COMPARISON: 02/29/2020 FINDINGS: Lungs are slightly hyperinflated. No focal consolidation isidentified. A calcified granuloma is seen in the right upper lobe. Heart size isnormal. No pleural effusion or pneumothorax is noted. [facility], Radiant Results Inft User - 09/03/2020 3:53 PM CDT CHEST 2 VIEWS:HISTORY:PneumoniaTECHNIQUE:: PA and lateral views of the chest are obtained.COMPARISON: 02/29/2020FINDINGS: Lungs are slightly hyperinflated. No focal consolidation isidentified. A calcified granuloma is seen in theright upper lobe.Heart size is normal. No pleural effusion or pneumothorax is noted.IMPRESSIONNo acute cardiopulmonary disease. [facility] GLUCOSE (AUTOMATED)2020-03-03 18:38:00* Test Item Value Reference Range Interpretation Comme nts POCT GLU (test code = 6155325606) 139 mg/dL 70-110 H Lab Interpretation (test cod e = 57344-2) Abnormal [facility] GLUCOSE (AUTOMATED)2020-03-03 18:38:00* Test Item Value Reference Range Interpretation Comme nts POCT GLU (test code = 6003564150) 139 mg/dL 70-110 H Lab Interpretation (test cod e = 49380-9) Abnormal [facility] GLUCOSE (AUTOMATED)2020-03-03 14:19:00* Test Item Value Reference Range Interpretation Comme nts POCT GLU (test code = 2933704498) 157 mg/dL 70-110 H Lab Interpretation (test cod e = 94012-1) Abnormal [facility] GLUCOSE (AUTOMATED)2020-03-03 14:19:00* Test Item Value Reference Range Interpretation Comme nts POCT GLU (test code = 7898535556) 157 mg/dL 70-110 H Lab Interpretation (test cod e = 24892-9) Abnormal [facility]-COV-2 [id number] 13:10:00* Test Item Value Reference Range Interpretation Comme nts CoV-2 IgG (test code = 04870-7) Negative Negative Negative result does not rule out acute SARS-CoV-2 infection. Clinical correlation as well as molecular diagnostic test are recommended to rule out acute infection if clinically indicated. SHRUTHI (test code = SHRUTHI) This test has been approved by FDA for emergency use. Lab Interpretation (test code = 74518-8) Normal [facility]-COV-2 [id number] 13:10:00* Test Item Value Reference Range Interpretation Comme nts CoV-2 IgG (test code = 11389-0) Negative Negative Negative result does not rule out acute SARS-CoV-2 infection. Clinical correlation as well as molecular diagnostic test are recommended to rule out acute infection if clinically indicated. SHRUTHI (test code = SHRUTHI) This test has been approved by FDA for emergency use. Lab Interpretation (test code = 74701-0) Normal [facility] METABOLIC PANEL (NA, K, CL, CO2, GLUCOSE, BUN, CREATININE, CA)2020-03-03 12:48:00* Test Item Value Reference Range Interpretation Comme nts NA (test code = 6542539832) 138 mmol/L 135-145 K (test code = 8714116521) 4.0 mmol/L 3.5-5 CL (test code = 5271051674) 100 mmol/L 98-108 CO2 TOTAL (test code = 1397700108) 31 mmol/L 23-31 AGAP (test code = 5284498796) 2-16 BUN (test code = 1973944114) 16 mg/dL 7-23 GLUCOSE (test code = 6653661296) 170 mg/dL 70-110 H CREATININE (test code = 7737058295) 1.01 mg/dL 0.6-1.25 CALCIUM (test code = 4255771571) 8.9 mg/dL 8.6-10.6 eGFR Calculation (Non-) (test code = 8521120326) mL/min/1.73m2 eGFR Calculation () (test code = 1319707613) mL/min/1.73m2 SHRUTHI (test code = SHRUTHI) Association of Glomerular Filtration Rate (GFR) and Staging of Kidney Disease* + --+ --+ ------+| GFR (mL/min/1.73 m2) ?| With Kidney Damage ?| ?Without Kidney Damage+ --------+ --------+ +| ?>90 ?| ?Stage one ?| ? Normal ?+ ---+ ---+ -------+| ?60-89 ?| ?Stage two ?| ? Decreased GFR ? + --+ --+ ------+| ?30-59 ?| ?Stage three ?| ? Stage three ? + --+ --+ ------+| ?15-29 ?| ?Stage four ? | ? Stage four ?+ ---+ ---+ -------+| ?<15 (or dialysis) ? ?| ?Stage five ? | ? Stage five ?+ ---+ ---+ -------+ *Each stage assumes the associated GFR level has been in effect for at least three months. ?Stages 1 to 5, with or without kidney disease, indicate chronic kidney disease. Notes: Determination of stages one and two (with eGFR >59mL/min/1.73 m2) requires estimation of kidney damage for at least three months as defined by structural or functional abnormalities of the kidney, manifested by either:Pathological abnormalities or Markers of kidney damage (including abnormalities in the composition of the blood or urine or abnormalities in imaging tests). Lab Interpretation (test code = 11961-8) [facility] (17561[facility] (ALB,T.PRO,BILI T,BU/BC,ALT,AST,ALK PHOS)2020-03-03 12:48:00* Test Item Value Reference Range Interpretation Comme nts TOTAL BILI (test code = 1486741757) 0.7 mg/dL 0.1-1.1 BILI UNCON (test code = 6041799998) 0.6 mg/dL 0.1-1.1 BILI CONJ (test code = 4038789702) 0.0 mg/dL 0-0.3 T PROTEIN (test code = 4029576378) 6.9 g/dL 6.3-8.2 ALBUMIN (test code = 6039322149) 3.9 g/dL 3.5-5 ALK PHOS (test code = 5731580659) 78 U/L 34-122 ALTv (test code = 1742-6) 41 U/L 5-50 AST(SGOT) (test code = 9235726936) 42 U/L 13-40 H Lab Interpretation (test cod e = 51799-1) Abnormal [facility] METABOLIC PANEL (NA, K, CL, CO2, GLUCOSE, BUN, CREATININE, CA)2020-03-03 12:48:00* Test Item Value Reference Range Interpretation Comme nts NA (test code = 5762452726) 138 mmol/L 135-145 K (test code = 4619514553) 4.0 mmol/L 3.5-5 CL (test code = 3795718939) 100 mmol/L 98-108 CO2 TOTAL (test code = 0680769625) 31 mmol/L 23-31 AGAP (test code = 0984733005) 2-16 BUN (test code = 1678726399) 16 mg/dL 7-23 GLUCOSE (test code = 7468113290) 170 mg/dL 70-110 H CREATININE (test code = 9694961692) 1.01 mg/dL 0.6-1.25 CALCIUM (test code = 2906022439) 8.9 mg/dL 8.6-10.6 eGFR Calculation (Non-) (test code = 3847394338) mL/min/1.73m2 eGFR Calculation () (test code = 8010150157) mL/min/1.73m2 SHRUTHI (test code = SHRUTHI) Association of Glomerular Filtration Rate (GFR) and Staging of Kidney Disease* + --+ --+ ------+| GFR (mL/min/1.73 m2) ?| With Kidney Damage ?| ?Without Kidney Damage+ --------+ --------+ +| ?>90 ?| ?Stage one ?| ? Normal ?+ ---+ ---+ -------+| ?60-89 ?| ?Stage two ?| ? Decreased GFR ? + --+ --+ ------+| ?30-59 ?| ?Stage three ?| ? Stage three ? + --+ --+ ------+| ?15-29 ?| ?Stage four ? | ? Stage four ?+ ---+ ---+ -------+| ?<15 (or dialysis) ? ?| ?Stage five ? | ? Stage five ?+ ---+ ---+ -------+ *Each stage assumes the associated GFR level has been in effect for at least three months. ?Stages 1 to 5, with or without kidney disease, indicate chronic kidney disease. Notes: Determination of stages one and two (with eGFR >59mL/min/1.73 m2) requires estimation of kidney damage for at least three months as defined by structural or functional abnormalities of the kidney, manifested by either:Pathological abnormalities or Markers of kidney damage (including abnormalities in the composition of the blood or urine or abnormalities in imaging tests). Lab Interpretation (test code = 03794-0) [facility] (81419) (ALB,T.PRO,BILI T,BU/BC,ALT,AST,ALK PHOS)2020-03-03 12:48:00* Test Item Value Reference Range Interpretation Comme nts TOTAL BILI (test code = 0328332346) 0.7 mg/dL 0.1-1.1 BILI UNCON (test code = 0421557463) 0.6 mg/dL 0.1-1.1 BILI CONJ (test code = 6870525495) 0.0 mg/dL 0-0.3 T PROTEIN (test code = 8137150249) 6.9 g/dL 6.3-8.2 ALBUMIN (test code = 2242873890) 3.9 g/dL 3.5-5 ALK PHOS (test code = 3167519077) 78 U/L 34-122 ALTv (test code = 1742-6) 41 U/L 5-50 AST(SGOT) (test code = 2996498179) 42 U/L 13-40 H Lab Interpretation (test cod e = 81755-4) [facility]normal [facility] [id number] 04:53:301. ?Mild hepatic steatosis. Mild hepatosplenomegaly2. ?Two punctate nonobstructing left renal calculi. Preliminary Report Dictated by Resident: Jono Cisse MD., have reviewed thisstudy and agree with the abovereport.EXAM: US ABDOMEN COMPLETE HISTORY: 64 years-old Male with Abdominal swelling and pain, [id number] w/o clear cause . TECHNIQUE: Complete abdominal ultrasound was performed. Main portal veinwas evaluated with color Doppler imaging. Financial Management images wereobtained for the record. COMPARISON: None FINDINGS: PANCREAS: Limited visualization due to shadowing from bowel gas.. AORTA:Abdominal aorta is normal in caliber where visualized. Diameter of theproximalabdominal aorta is 2.4 cm in AP dimension. LIVER: Length: 18.4 cm in the craniocaudal dimensionParenchyma: Mildly diffuse increase hepatic echogenicity. No focal lesionis detectedPortal vein: Hepatopetal flow present in the main portal vein.MPV diameter: 1.3 cm in AP dimension GALLBLADDER:The gallbl adder is decompressedNo cholelithiasisNormal gallbladder wall thickness, 0.2 cm. No pericholecysticfluid orinflammatory changes.Negative Hernandez's sign. BILE DUCTS:No intra- or extrahepatic biliary dilatation..Common Duct diameter: 0.3 cm. IVC:IVC is normal in appearance where visualized. SPLEEN: The spleen is normal in size. The spleen measures 12.5 cm. No focal lesionsin the spleen. KIDNEYS:RIGHT:Size: Normal, 12.3 x 6.6 x 8.1 cm.Parenchyma: Normal renal cortical echogenicity and thickness. No focalsolid or cystic renal lesions are detected.Collecting System: No hydronephrosis.Other: Two nonobstructing punctate foci are noted with metallic artifact. LEFT:Size: Normal, 11.2 x 6.4 x 6.2 cm.P arenchyma:Normal renal cortical echogenicity and thickness. No focal solidor cystic renal lesions are detected.Collecting System: No hydronephrosis.Other: None. OTHER: None. [facility], Radiant Results Inft User - 03/02/2020 10:54 PM CSTEXAM: US ABDOMEN COMPLETEHISTORY: 64 years-old Male with Abdominal swelling and pain, [id number] w/o clear cause .TECHNIQUE: Complete abdominal ultrasound was performed. Main portal veinwas evaluated with color Doppler imaging. Financial Management images wereobtained for the record.COMPARISON: NoneFINDINGS: PANCREAS: Limited visualization due to shadowing from bowel gas.. AORTA:Abdominal aorta is normal in caliber where visualized. Diameter of theproximal abdominalaorta is 2.4 cm in AP dimension.LIVER: Length: 18.4 cm in the craniocaudal dimensionParenchyma: Mildly diffuse increase hepatic echogenicity. No focal lesionis detectedPortal vein: Hepatopetal flow present in the main portal vein.MPV diameter: 1.3 cm in AP dimensionGALLBLADDER:The gallbladder is decompressedNo cholelithiasisNormal gallbladder wall thickness, 0.2 cm. No pericholecystic fluid orinflammatory changes.Negative Hernandez's sign. BILE DUCTS:No intra- or extrahepatic biliary dilatation..Common Duct diameter: 0.3 cm.IVC:IVC is normal in appearance where visualized. SPLEEN: The spleen is n ormal in size. The spleen measures 12.5 cm. No focal lesionsin the spleen.KIDNEYS:RIGHT:Size: Normal, 12.3 x 6.6 x 8.1 cm.Parenchyma: Normal renal cortical echogenicity and thickness. No focalsolid or cystic renal lesions are detected.Collecting System: No hydronephrosis.Other: Two nonobstructing punctate foci are noted with metallic artifact.LEFT:Size: Normal, 11.2 x 6.4 x 6.2 cm.Parenchyma:Normal renal cortical echogenicity and thickness. No focal solidor cystic renal lesions are detected.Collecting System: No hydronephrosis.Other: None.OTHER: None.IMPRESSION1. Mild hepatic steatosis. Mild hepatosplenomegaly2. Two punctate nonobstructing left renal calculi.Preliminary Report Dictated by Re sident: Jono Kaur MD., have reviewed this study and agree with the abovereport.[facility] ABDOMEN COMPLETE 2020-03-03 04:53:301. ?Mild hepatic steatosis. Mild hepatosplenomegaly2. ?Two punctate nonobstructing left renal calculi. Preliminary Report Dictated by Resident: Jono Cisse MD., have reviewed thisstudy and agree with the abovereport.EXAM: US ABDOMEN COMPLETE HISTORY: 64 years-old Male with Abdominal swelling and pain, [id number] w/o clear cause . TECHNIQUE: Complete abdominal ultrasound was performed. Main portal veinwas evaluated with color Doppler imaging. Financial Management images wereobtained for the record. COMPARISON: None FINDINGS: PANCREAS: Limited visualization due to shadowing from bowel gas.. AORTA:Abdominal aorta is normal in caliber where visualized. Diameter of theproximalabdominal aorta is 2.4 cm in AP dimension. LIVER: Length: 18.4 cm in the craniocaudal dimensionParenchyma: Mildly diffuse increase hepatic echogenicity. No focal lesionis detectedPortal vein: Hepatopetal flow present in the main portal vein.MPV diameter: 1.3 cm in AP dimension GALLBLADDER:The gallbl adder is decompressedNo cholelithiasisNormal gallbladder wall thickness, 0.2 cm. No pericholecysticfluid orinflammatory changes.Negative Hernandez's sign. BILE DUCTS:No intra- or extrahepatic biliary dilatation..Common Duct diameter: 0.3 cm. IVC:IVC is normal in appearance where visualized. SPLEEN: The spleen is normal in size. The spleen measures 12.5 cm. No focal lesionsin the spleen. KIDNEYS:RIGHT:Size: Normal, 12.3 x 6.6 x 8.1 cm.Parenchyma: Normal renal cortical echogenicity and thickness. No focalsolid or cystic renal lesions are detected.Collecting System: No hydronephrosis.Other: Two nonobstructing punctate foci are noted with metallic artifact. LEFT:Size: Normal, 11.2 x 6.4 x 6.2 cm.P arenchyma:Normal renal cortical echogenicity and thickness. No focal solidor cystic renal lesions are detected.Collecting System: No hydronephrosis.Other: None. OTHER: None. Lamb, Radiant Results Inft User - 03/02/2020 10:54 PM CSTEXAM: US ABDOMEN COMPLETEHISTORY: 64 years-old Male with Abdominal swelling and pain, [id number] w/o clear cause .TECHNIQUE: Complete abdominal ultrasound was performed. Main portal veinwas evaluated with color Doppler imaging. Financial Management images wereobtained for the record.COMPARISON: NoneFINDINGS: PANCREAS: Limited visualization due to shadowing from bowel gas.. AORTA:Abdominal aorta is normal in caliber where visualized. Diameter of theproximal abdominalaorta is 2.4 cm in AP dimension.LIVER: Length: 18.4 cm in the craniocaudal dimensionParenchyma: Mildly diffuse increase hepatic echogenicity. No focal lesionis detectedPortal vein: Hepatopetal flow present in the main portal vein.MPV diameter: 1.3 cm in AP dimensionGALLBLADDER:The gallbladder is decompressedNo cholelithiasisNormal gallbladder wall thickness, 0.2 cm. No pericholecystic fluid orinflammatory changes.Negative Hernandez's sign. BILE DUCTS:No intra- or extrahepatic biliary dilatation..Common Duct diameter: 0.3 cm.IVC:IVC is normal in appearance where visualized. SPLEEN: The spleen is n ormal in size. The spleen measures 12.5 cm. No focal lesionsin the spleen.KIDNEYS:RIGHT:Size: Normal, 12.3 x 6.6 x 8.1 cm.Parenchyma: Normal renal cortical echogenicity and thickness. No focalsolid or cystic renal lesions are detected.Collecting System: No hydronephrosis.Other: Two nonobstructing punctate foci are noted with metallic artifact.LEFT:Size: Normal, 11.2 x 6.4 x 6.2 cm.Parenchyma:Normal renal cortical echogenicity and thickness. No focal solidor cystic renal lesions are detected.Collecting System: No hydronephrosis.Other: None.OTHER: None.IMPRESSION1. Mild hepatic steatosis. Mild hepatosplenomegaly2. Two punctate nonobstructing left renal calculi.Preliminary Report Dictated by Re jacquint: Leon Valdez, Jono Turner MD., have reviewed this study and agree with the abovereport.[facility] GLUCOSE (AUTOMATED) 2020-03-03 03:17:00* Test Item Value Reference Range Interpretation Comme nts POCT GLU (test code = 3911640756) 238 mg/dL 70-110 H Lab Interpretation (test cod e = 82844-3) Abnormal [facility] GLUCOSE (AUTOMATED)2020-03-03 03:17:00* Test Item Value Reference Range Interpretation Comme nts POCT GLU (test code = 6182656881) 238 mg/dL 70-110 H Lab Interpretation (test cod e = 97055-2) Abnormal [facility] GLUCOSE (AUTOMATED)2020-03-02 22:14:00* Test Item Value Reference Range Interpretation Comme nts POCT GLU (test code = 7133202982) 208 mg/dL 70-110 H Lab Interpretation (test cod e = 92599-4) Abnormal [facility] GLUCOSE (AUTOMATED)2020-03-02 22:14:00* Test Item Value Reference Range Interpretation Comme nts POCT GLU (test code = 6066864477) 208 mg/dL 70-110 H Lab Interpretation (test cod e = 79854-7) [facility]ID [facility]2020-03-02 21:23:00* Test Item Value Reference Range Interpretation Comme nts SARS-CoV-2 Rapid ID NOW (test code = 39896-6) Not Detected Not Detected SHRUTHI (test code = SHRUTHI) ID NOW COVID-19 As say is an isothermal nucleic acid amplification test intended for the qualitative detection of nucleic acid from SARS-CoV-2 viral RNA in nasopharyngeal (END STAPLER) specimens. It is used under Emergency Use Authorization (EUA) by FDA. The limit of detection (LOD) of the assay is 125 Genome Equivalents/mL. A positive result is indicative of the presence of SARS-CoV-2 RNA. ?Clinical correlation with patient history and other diagnostic information is necessary to determine patient infection status. A negative (Not Detected) result does not preclude SARS-CoV-2 infection. In patients with clinical symptoms and other tests that are consistent with SARS-CoV-2 infection, negative results should be treated as presumptive negative and a new specimen should be tested with alternative PCR molecular test. Invalid: Please collect a new specimen for repeat patient testing if clinically indicated.ID NOW COVID-19 Assay is an isothermal nucleic acid amplification test intended for the qualitative detection of nucleic acid from SARS-CoV-2 viral RNA in nasopharyngeal (END STAPLER) specimens. It is used under Emergency Use Authorization (EUA) by FDA. The limit of detection (LOD) of the assay is 125 Genome Equivalents/mL. A positive result is indicative of the presence of SARS-CoV-2 RNA. ?Clinical correlation with patient history and other diagnostic information is necessary to determine patient infection status. A negative (Not Detected) result does not preclude SARS-CoV-2 infection. In patients with clinical symptoms and other tests that are consistent with SARS-CoV-2 infection, negative results should be treated as presumptive negative and a new specimen should be tested with alternative PCR molecular test. Invalid: Please collect a new specimen for repeat patient testing if clinically indicated. Lab Interpretation (test code = 86857-4) [facility] RAPID TESTING)2020-03-02 21:23:00* Test Item Value Reference Range Interpretation Comme nts SARS-CoV-2 Rapid ID NOW (test code = 26577-3) Not Detected Not Detected SHRUTHI (test code = SHRUTHI) ID NOW COVID-19 As say is an isothermal nucleic acid amplification test intended for the qualitative detection of nucleic acid from SARS-CoV-2 viral RNA in nasopharyngeal (END STAPLER) specimens. It is used under Emergency Use Authorization (EUA) by FDA. The limit of detection (LOD) of the assay is 125 Genome Equivalents/mL. A positive result is indicative of the presence of SARS-CoV-2 RNA. ?Clinical correlation with patient history and other diagnostic information is necessary to determine patient infection status. A negative (Not Detected) result does not preclude SARS-CoV-2 infection. In patients with clinical symptoms and other tests that are consistent with SARS-CoV-2 infection, negative results should be treated as presumptive negative and a new specimen should be tested with alternative PCR molecular test. Invalid: Please collect a new specimen for repeat patient testing if clinically indicated.ID NOW COVID-19 Assay is an isothermal nucleic acid amplification test intended for the qualitative detection of nucleic acid from SARS-CoV-2 viral RNA in nasopharyngeal (END STAPLER) specimens. It is used under Emergency Use Authorization (EUA) by FDA. The limit of detection (LOD) of the assay is 125 Genome Equivalents/mL. A positive result is indicative of the presence of SARS-CoV-2 RNA. ?Clinical correlation with patient history and other diagnostic information is necessary to determine patient infection status. A negative (Not Detected) result does not preclude SARS-CoV-2 infection. In patients with clinical symptoms and other tests that are consistent with SARS-CoV-2 infection, negative results should be treated as presumptive negative and a new specimen should be tested with alternative PCR molecular test. Invalid: Please collect a new specimen for repeat patient testing if clinically indicated. Lab Interpretation (test code = 53608-1) Normal [facility] GLUCOSE (AUTOMATED)2020-03-02 18:09:00* Test Item Value Reference Range Interpretation Comme nts POCT GLU (test code = 8982320242) 128 mg/dL 70-110 H Lab Interpretation (test cod e = 02923-1) Abnormal [facility] GLUCOSE (AUTOMATED)2020-03-02 18:09:00* Test Item Value Reference Range Interpretation Comme nts POCT GLU (test code = 4402615547) 128 mg/dL 70-110 H Lab Interpretation (test cod e = 89514-9) Abnormal [facility]-COV-2 [id number] 18:08:00* Test Item Value Reference Range Interpretation Comme nts CoV-2 IgM (test code = 32921-9) Negative Negative Negative results do not rule out acute SARS-CoV-2 infection. Clinical correlation as well as molecular diagnostic test are recommended to rule out acute infection if clinically indicated. SHRUTHI (test code = SHRUTHI) This test has not been reviewed by the FDA. Lab Interpretation (test code = 64491-7) Normal [facility]-COV-2 [id number] 18:08:00* Test Item Value Reference Range Interpretation Comme nts CoV-2 IgM (test code = 62724-4) Negative Negative Negative results do not rule out acute SARS-CoV-2 infection. Clinical correlation as well as molecular diagnostic test are recommended to rule out acute infection if clinically indicated. SHRUTHI (test code = SHRUTHI) This test has not been reviewed by the FDA. Lab Interpretation (test code = 90725-0) Normal [facility] GLUCOSE (AUTOMATED)2020-03-02 14:51:00* Test Item Value Reference Range Interpretation Comme nts POCT GLU (test code = 0146631003) 249 mg/dL 70-110 H Lab Interpretation (test cod e = 46415-7) Abnormal [facility] GLUCOSE (AUTOMATED)2020-03-02 14:51:00* Test Item Value Reference Range Interpretation Comme nts POCT GLU (test code = 4274477634) 249 mg/dL 70-110 H Lab Interpretation (test cod e = 94883-6) [facility] [id number] 04:13:00COVID DMT InterpretationInterpretation/Recommendations: Molecular NAAT Tests for Active Infection with the SARS-CoV-2 Virus: This patient has tested negative on two occasions for the SARS-CoV-2 virusthat causes COVID-19 illness. This most likely indicates that the patient does not have an active infection with the SARS-CoV-2 virus, especially if these tests coincide with the patient's current presentation. However, infection is not completely ruled out as the false negative rate for molecular NAAT testing using a nasopharyngeal sample can be up to 30%, mostly dependent on the timing of sample collection in relation to illness onset and any deficiencies in sampling techniques. If the patient continues to have persistent or worsening symptoms concerning for COVID-19 illness, a repeat NAAT test (PCR, Rapid ID Now, etc.) should be performed, at which time the SARS-CoV-2 virus - if present - may have reached a detectable viral load (usually peaking by the end of the first week of symptoms). Tests for IgM and/or IgG Antibodies to SARS-CoV-2 Virus: Testing for IgM and IgG antibodies 1-3 weeks after illness onset will indicate whether the patient has produced antibodies to the virus. At this time, it is not known if the production of antibodies - specifically IgG antibodies - indicateswhether the patient is immune to future infections with the SARS-CoV-2 virus. Interpretation Result Comments: These interpretation comments are based upon aggregate COVID-19 test results pooled from [facility]. They apply to the following tests offered at [facility] and assume the acceptable specimen type(s) were used: A. Tests for the Identification of SARS-CoV-2 RNA (Molecular NAAT Tests): ?- SARS-CoV-2 PCR assays including [place] Aptima, Granville Fusion, Butler RealTime, and [employer] Xpert Xpress. ?- SARS-CoV-2 Rapid ID NOW by the ID NOW assay. ? B. Tests for the Identification of SARS-CoV-2 Antibodies: ?- Chemi luminescent immunoassays including Access SARS-CoV-2 IgM (DXI 600), PixtronixS Uigy-KFHR-IdQ-2 IgG (Vitros 5600 and Vitros 3600), and Butler SARS-CoV-2 IgG (OCCUPATIONAL THERAPIST AIDE I System). These interpretations areautopopulated into [facility] based on computerized algorithms matching an interpretation code to the patient's set of test results, and a clinical pathologist evaluates the comments for accuracy. However,these comments do not consider testing a patient may have had outside of the [facility] system. If results for COVID-19 infection continue to be negative in the context of a suspected viral respiratory illness, it is possible the patient may have an infection with another respiratory virus. Influenza testing and a respiratory pathogen panel if clinically indicated may be beneficial in this setting. If there continues to be a high degree of clinical suspicion for COVID- 19 illness despite multiple negative tests on nasopharyngeal specimens, then it may be necessary to test the patient for the SARS-CoV-2 virus using lower respiratory tract samples (such as sputum, bronchoalveolar lavage fluid (BAL), tracheal aspirate, etc.). ? [facility] LABORATORY SERVICESCOVID RopyxyhRIEC-SqY-3 NAAT (no units) ? ? Date ? Value ? 03/01/2020 ? Not Detected ? SARS-CoV-2 Rapid ID NOW (no units) ? ? Date ? Value ? 02/29/2020 ?Not Detected ? [facility] COVID [id number] 04:13:00COVID DMT InterpretationInterpretation/Recommendations: Molecular NAAT Tests for Active Infection with the SARS-CoV-2 Virus: This patient has tested negative on two occasions for the SARS-CoV-2 virusthat causes COVID-19 illness. This most likely indicates that the patient does not have an active infection with the SARS-CoV-2 virus, especially if these tests coincide with the patient's current pre sentation. However, infection is not completely ruled out as the false negative rate for molecular NAAT testing using a nasopharyngeal sample can be up to 30%, mostly dependent on the timing of sample collection in relation to illness onset and any deficiencies in sampling techniques. If the patient continues to have persistent or worsening symptoms concerning for COVID-19 illness, a repeat NAAT test (PCR, Rapid ID Now, etc.) should be performed, at which time the SARS-CoV-2 virus - if present - may have reached a detectable viral load (usually peaking by the end of the first week of symptoms). Tests for IgM and/or IgG Antibodies to SARS-CoV-2 Virus: Testing for IgM and IgG antibodies 1-3 weeks after illness onset will indicate whether the patient has produced antibodies to the virus. At this time, it is not known if the production of antibodies - specifically IgG antibodies - indicateswhether the patient is immune to future infections with the SARS-CoV-2 virus. Interpretation Result Comments: These interpretation comments are based upon aggregate COVID-19 test results pooled from [facility]. They apply to the following tests offered at [facility] and assume the acceptable specimen type(s) were used: A. Tests for the I dentification of SARS-CoV-2 RNA (Molecular NAAT Tests): ?- SARS-CoV-2 PCR assays including [place] Aptima, Granville Fusion, Butler RealTime, and [employer] Xpert Xpress. ?- SARS-CoV-2 Rapid ID NOW by the ID NOW assay. ? B. Tests for the Identification of SARS-CoV-2 Antibodies: ?- Chemiluminescent immunoassays including Access SARS-CoV-2 IgM (DXI 600), PixtronixS Foeu-TKCS-JxB-2 IgG (Vitros 5600 and Vitros 3600), and Butler SARS-CoV-2 IgG (OCCUPATIONAL THERAPIST AIDE I System). These interpretations areautopopulated into [facility] based on computerized algorithms matching an interpretation code to the patient's set of test results, and a clinical pathologist evaluates the comments for accuracy. However,these comments do not consider testing a patient may have had outside of the [facility] system. If results for COVID-19 infection continue to be negative in the context of a suspected viral respiratory illness, it is possible the patient may have an infection with another respiratory virus. Influenza testing and a respiratory pathogen panel if clinically indicated may be beneficial in this setting. If t here continues to be a high degree of clinical suspicion for COVID-19 illness despite multiple negative tests on nasopharyngeal specimens, then it may be necessary to test the patient for the SARS-CoV-2 virus using lower respiratory tract samples (such as sputum, bronchoalveolar lavage fluid (BAL),tracheal aspirate, etc.). ? [facility] LABORATORY SERVICESCOVID LfgnaquQMRG-ZlN-7 NAAT (no units) ? ? Date ? Value ? 03/01/2020 ? Not Detected ? SARS-CoV-2 Rapid ID NOW (no units) ? ? Date ? Value ? 02/29/2020 ?Not Detected ? [facility]-02 03:15:00* Test Item Value Reference Range Interpretation Comme nts POCT GLU (test code = 2964293082) 248 mg/dL 70-110 H Lab Interpretation (test cod e = 33389-9) Abnormal [facility] GLUCOSE (AUTOMATED)2020-03-02 03:15:00* Test Item Value Reference Range Interpretation Comme nts POCT GLU (test code = 6668223672) 248 mg/dL 70-110 H Lab Interpretation (test cod e = 79494-9) [facility]normal [facility] (Total Cholesterol, Triglycerides, HDL) - [id number] 02:41:00* Test Item Value Reference Range Interpretation Comme nts CHOL (test code = 5746505005) 123 mg/dL 120-200 HDL (test code = 1908904372) 19 mg/dL >40 L HDLC RATIO (test code = 4976373616) See_Comment H [Automated QuNano] The system which generated this result transmitted reference range: <=5.0. The reference range was not used to interpret this result as normal/abnormal. TRIG (test code = 4436867989) 141 mg/dL 30-170 LDL CHOL (test code = 01469-6) 76 mg/dL See_Comment [Automated [employer]ano] The system which generated this result transmitted reference range: <=160. The reference range was not used to interpret this result as normal/abnormal. VLDL (test code = 6904098822) 28 mg/dL 5-60 Lab Interpretation (test code = 52411-1) [facility] (Total Cholesterol, Triglycerides, HDL) - [id number] 02:41:00* Test Item Value Reference Range Interpretation Comme nts CHOL (test code = 2414010003) 123 mg/dL 120-200 HDL (test code = 8537030142) 19 mg/dL >40 L HDLC RATIO (test code = 1168706120) See_Comment H [Automated messa ge] The system which generated this result transmitted reference range: <=5.0. The reference range was not used to interpret this result as normal/abnormal. TRIG (test code = 5709077305) 141 mg/dL 30-170 LDL CHOL (test code = 88158-9) 76 mg/dL See_Comment [Automated messa ge] The system which generated this result transmitted reference range: <=160. The reference range was not used to interpret this result as normal/abnormal. VLDL (test code = 6176627891) 28 mg/dL 5-60 Lab Interpretation (test code = 53213-0) Abnormal [facility] GLUCOSE (AUTOMATED)2020-03-02 02:10:00* Test Item Value Reference Range Interpretation Comme nts POCT GLU (test code = 0206132214) 260 mg/dL 70-110 H Lab Interpretation (test cod e = 91597-3) Abnormal [facility] GLUCOSE (AUTOMATED)2020-03-02 02:10:00* Test Item Value Reference Range Interpretation Comme nts POCT GLU (test code = 3219156860) 260 mg/dL 70-110 H Lab Interpretation (test cod e = 83431-1) Abnormal [facility] GLUCOSE (AUTOMATED)2020-03-01 23:21:00* Test Item Value Reference Range Interpretation Comme nts POCT GLU (test code = 9101279957) 124 mg/dL 70-110 H Lab Interpretation (test cod e = 71697-9) Abnormal [facility] GLUCOSE (AUTOMATED)2020-03-01 23:21:00* Test Item Value Reference Range Interpretation Comme nts POCT GLU (test code = 3181824171) 124 mg/dL 70-110 H Lab Interpretation (test cod e = 11121-6) [facility]NE[facility] [id number] 18:26:00* Test Item Value Reference Range Interpretation Comme nts S. pneumoniae antigen (test code = 7157875202) Negative Negative Lab Interpretation (test cod e = 88918-4) Normal [facility]NEUM[facility]OCCAL [id number] 18:26:00* Test Item Value Reference Range Interpretation Comme nts S. pneumoniae antigen (test code = 2927138180) Negative Negative Lab Interpretation (test cod e = 96220-3) Normal [facility]LEGIONELLA URINARY ANTIGEN [id number] 18:25:00* Test Item Value Reference Range Interpretation Comme nts Legionella Urinary Antigen (test code = 7628473801) Negative Negative SHRUTHI (test code = SHRUTHI) Negative for L. pneumophilia serogroup I antigen in urine suggesting no recent or current infection. Infection due to Legionella cannot be ruled out since other serogroups and species may cause disease. Furthermore, antigens may not be present in urine during early stage of infection, or the level of antigen present in urine may be below the detection limit of the test. Lab Interpretation (test code = 55745-7) Normal [facility]burgLEGIONELLA URINARY ANTIGEN [id number] 18:25:00* Test Item Value Reference Range Interpretation Comme nts Legionella Urinary Antigen (test code = 7444469171) Negative Negative SHRUTHI (test code = SHRUTHI) Negative for L. pneumophilia serogroup I antigen in urine suggesting no recent or current infection. Infection due to Legionella cannot be ruled out since other serogroups and species may cause disease. Furthermore, antigens may not be present in urine during early stage of infection, or the level of antigen present in urine may be below the detection limit of the test. Lab Interpretation (test code = 09373-1) Normal [facility] GLUCOSE (AUTOMATED)2020-03-01 18:11:00* Test Item Value Reference Range Interpretation Comme nts POCT GLU (test code = 1207073618) 147 mg/dL 70-110 H Lab Interpretation (test cod e = 86753-5) Abnormal [facility] GLUCOSE (AUTOMATED)2020-03-01 18:11:00* Test Item Value Reference Range Interpretation Comme nts POCT GLU (test code = 4982823488) 147 mg/dL 70-110 H Lab Interpretation (test cod e = 06427-7) [facility] COVID-19 [id number] 16:51:00* Test Item Value Reference Range Interpretation Comme nts SARS-CoV-2 NAAT (test code = 03739-9) Not Detected Not Detected SHRUTHI (test code = SHRUTHI) Cepheid Xpert ?Xpr ess SARS-CoV-2 Assay is a rapid, real-time RT-PCR test intended for the qualitative detection of nucleic acid from the SARS-CoV-2 in nasopharyngeal (END STAPLER) specimens. It is used under Emergency Use Authorization (EUA) by FDA. A positive result is indicative of the presence of SARS-CoV-2 RNA. ?Clinical correlation with patient history and other diagnostic information is necessary to determine patient infection status. A negative (Not Detected) result does not preclude SARS-CoV-2 infection. A negative result does not rule out the presence of PCR inhibitors in the patient specimen or SARS-CoV-2 virus RNA concentrations below the limit of detection by the assay. Clinical correlation with patient history and other diagnostic information should be used in patient management decisions. Invalid: Please collect a new specimen for repeat patient testing if clinically indicated. Lab Interpretation (test code = 77587-0) [facility] [id number] 16:51:00* Test Item Value Reference Range Interpretation Comme nts SARS-CoV-2 NAAT (test code = 50580-2) Not Detected Not Detected SHRUTHI (test code = SHRUTHI) Cepheid Xpert ?Xpr ess SARS-CoV-2 Assay is a rapid, real-time RT-PCR test intended for the qualitative detection of nucleic acid from the SARS-CoV-2 in nasopharyngeal (END STAPLER) specimens. It is used under Emergency Use Authorization (EUA) by FDA. A positive result is indicative of the presence of SARS-CoV-2 RNA. ?Clinical correlation with patient history and other diagnostic information is necessary to determine patient infection status. A negative (Not Detected) result does not preclude SARS-CoV-2 infection. A negative result does not rule out the presence of PCR inhibitors in the patient specimen or SARS-CoV-2 virus RNA concentrations below the limit of detection by the assay. Clinical correlation with patient history and other diagnostic information should be used in patient management decisions. Invalid: Please collect a new specimen for repeat patient testing if clinically indicated. Lab Interpretation (test code = 28033-4) [facility]2020-12-10 16:49:00* Test Item Value Reference Range Interpretation Comme nts Procalcitonin (test code = 4023558657) 0.03 ng/mL <0.07 SHRUTHI (test code = SHRUTHI) INTERPRETATION OF PROCALCITONIN RESULTS IN ADULTS >= 18 YEARS OF AGE Initiation and discontinuation of antibiotics on patients with suspected or confirmed Lower Respiratory Tract Infection in Adults >= 18 years of age. + +-------- --------+ + -----+|Procalcitonin |Interpretation ?|Antibiotic ? ? |Considerations ? |ng/mL ? | ?|recommendation | ? + +-------- --------+ + -----+| <0.1 ? | Bacterial ? ? ?| Strongly ? ? ?| ? | ?| infection very | discouraged ? | Overruling: ? | ?| unlikely ? ? ? | ? | ? Clinically unstable ? ? ? + +-------- --------+ + ? High risk for adverse ? ? | <0.25 ?| Bacterial ? ? ?| Discouraged ? | ? outcome ? | ?| infection ? ? ?| ? | ? SEE IMPORTANT NOTE ?| ?| unlikely ? ? ? | ? | ? + +-------- --------+ + -----+| >=0.25 ? ? ? | Bacterial ? ? ?| Encouraged ? ?| ? | ?| infection ? ? ?| ? | ? | ?| likely ? | ? | Consider treatment failure ?+ +------- ---------+ -+ if levels does not decrease | >0.5 ? | Bacterial ? ? ?| Strongly ? ? ?| appropriately ? | ?| infection very | encouraged ? ?| ? | ?| likely ? | ? | ? + +-------- --------+ + -----+ Discontinuation of antibiotics in high-acuity patients with suspected or confirmed sepsis in Adults >= 18 years of age. + +-------- --------+ + -----+|Procalcitonin |Interpretation ?|Antibiotic ? ? |Considerations ? |ng/mL ? | ?|recommendation | ? + +-------- --------+ + -----+| <0.25 ?| Bacterial ? ? ?| Strongly ? ? ?| ? | ?| infection very | discouraged ? | Overruling: ? | ?| unlikely ? ? ? | ? | ? Clinically unstable ? ? ? + +-------- --------+ + ? High risk for adverse ? ? | <0.5 or drop | Bacterial ? ? ?| Discouraged ? | ? outcome ? | >80% from ? ?| infection ? ? ?| ? | ? SEE IMPORTANT NOTE ?| highest PCT ?| unlikely ? ? ? | ? | ? | level ?| ?| ? | ? + +-------- --------+ + -----+| >=0.5 ?| Bacterial ? ? ?| Encouraged ? ?| ? | ?| infection ? ? ?| ? | ? | ?| likely ? | ? | Consider treatment failure ?+ +------- ---------+ -+ if levels does not decrease | >1.0 ? | Bacterial ? ? ?| Strongly ? ? ?| appropriately ? | ?| infection very | encouraged ? ?| ? | ?| likely ? | ? | ? + +-------- --------+ + -----+ Percentage of drop of Procalcitonin calculation for Discontinuation of antibiotics in high-acuity patients with suspected or confirmed sepsis in Adults >= 18 years of age. ? Procalcitonin highest{}-Procalcitonin current{}Delta Procalcitonin = x100% ? Procalcitonin current {} IMPORTANT NOTE: Procalcitonin may be elevated without bacterial infection by physiologic stress related to trauma, cantrell, chronic dialysis, metastatic cancer, surgery in the past seven days, malaria, some fungal infections, and some forms of vasculitis. The interpretation algorithm may not apply to patients with immunosuppression (equivalent of >10 mg of prednisone daily), HIV with CD4 cell count < 350 cells/mm3, active malignancy on systemic chemotherapy, solid organ transplant or hematopoietic stem cell transplantation, or hospital acquired pneumonia. Additionally, some clinical trials of procalcitonin have excluded patients with shock requiring vasopressor use, acute respiratory failure requiring mechanical ventilation, or those with known lung abscess/empyema. For further information please refer to:[email or web address] Lab Interpretation (test code = 60598-9) [facility]2020-12-10 16:49:00* Test Item Value Reference Range Interpretation Comme nts Procalcitonin (test code = 8139035041) 0.03 ng/mL <0.07 SHRUTHI (test code = SHRUTHI) INTERPRETATION OF PROCALCITONIN RESULTS IN ADULTS >= 18 YEARS OF AGE Initiation and discontinuation of antibiotics on patients with suspected or confirmed Lower Respiratory Tract Infection in Adults >= 18 years of age. + +-------- --------+ + -----+|Procalcitonin |Interpretation ?|Antibiotic ? ? |Considerations ? |ng/mL ? | ?|recommendation | ? + +-------- --------+ + -----+| <0.1 ? | Bacterial ? ? ?| Strongly ? ? ?| ? | ?| infection very | discouraged ? | Overruling: ? | ?| unlikely ? ? ? | ? | ? Clinically unstable ? ? ? + +-------- --------+ + ? High risk for adverse ? ? | <0.25 ?| Bacterial ? ? ?| Discouraged ? | ? outcome ? | ?| infection ? ? ?| ? | ? SEE IMPORTANT NOTE ?| ?| unlikely ? ? ? | ? | ? + +-------- --------+ + -----+| >=0.25 ? ? ? | Bacterial ? ? ?| Encouraged ? ?| ? | ?| infection ? ? ?| ? | ? | ?| likely ? | ? | Consider treatment failure ?+ +------- ---------+ -+ if levels does not decrease | >0.5 ? | Bacterial ? ? ?| Strongly ? ? ?| appropriately ? | ?| infection very | encouraged ? ?| ? | ?| likely ? | ? | ? + +-------- --------+ + -----+ Discontinuation of antibiotics in high-acuity patients with suspected or confirmed sepsis in Adults >= 18 years of age. + +-------- --------+ + -----+|Procalcitonin |Interpretation ?|Antibiotic ? ? |Considerations ? |ng/mL ? | ?|recommendation | ? + +-------- --------+ + -----+| <0.25 ?| Bacterial ? ? ?| Strongly ? ? ?| ? | ?| infection very | discouraged ? | Overruling: ? | ?| unlikely ? ? ? | ? | ? Clinically unstable ? ? ? + +-------- --------+ + ? High risk for adverse ? ? | <0.5 or drop | Bacterial ? ? ?| Discouraged ? | ? outcome ? | >80% from ? ?| infection ? ? ?| ? | ? SEE IMPORTANT NOTE ?| highest PCT ?| unlikely ? ? ? | ? | ? | level ?| ?| ? | ? + +-------- --------+ + -----+| >=0.5 ?| Bacterial ? ? ?| Encouraged ? ?| ? | ?| infection ? ? ?| ? | ? | ?| likely ? | ? | Consider treatment failure ?+ +------- ---------+ -+ if levels does not decrease | >1.0 ? | Bacterial ? ? ?| Strongly ? ? ?| appropriately ? | ?| infection very | encouraged ? ?| ? | ?| likely ? | ? | ? + +-------- --------+ + -----+ Percentage of drop of Procalcitonin calculation for Discontinuation of antibiotics in high-acuity patients with suspected or confirmed sepsis in Adults >= 18 years of age. ? Procalcitonin highest{}-Procalcitonin current{}Delta Procalcitonin = x100% ? Procalcitonin current {} IMPORTANT NOTE: Procalcitonin may be elevated without bacterial infection by physiologic stress related to trauma, cantrell, chronic dialysis, metastatic cancer, surgery in the past seven days, malaria, some fungal infections, and some forms of vasculitis. The interpretation algorithm may not apply to patients with immunosuppression (equivalent of >10 mg of prednisone daily), HIV with CD4 cell count < 350 cells/mm3, active malignancy on systemic chemotherapy, solid organ transplant or hematopoietic stem cell transplantation, or hospital acquired pneumonia. Additionally, some clinical trials of procalcitonin have excluded patients with shock requiring vasopressor use, acute respiratory failure requiring mechanical ventilation, or those with known lung abscess/empyema. For further information please refer to:[email or web address] Lab Interpretation (test code = 27876-3) [facility] BY [id number] 16:18:00* Test Item Value Reference Range Interpretation Comme nts Adenovirus (test code = 44136-0) Negative Negative Coronavirus HKU1 (test code = 96980-7) Negative Negative Coronavirus NL63 (test code = 12484-2) Negative Negative Coronavirus 229E (test code = 18762-8) Negative Negative Coronavirus OC43 (test code = 23294-7) Negative Negative Human Metapneumovirus (test code = 42273-0) Negative Negative Human Rhinovirus/Enterovirus (test code = 94364-7) Negative Negative Influenza A (test code = 66383-8) Negative Negative Influenza B (test code = 97258-6) Negative Negative Parainfluenza Virus 1 (test code = 35128-1) Negative Negative Parainfluenza Virus 2 (test code = 42898-4) Negative Negative Parainfluenza Virus 3 (test code = 18967-4) Negative Negative Parainfluenza Virus 4 (test code = 26270-9) Negative Negative Respiratory Syncytial Virus (test code = 88615-1) Negative Negative Bordetella parapertussis (test code = 53376-9) Negative Negative Bordetella pertussis (test code = 13196-0) Negative Negative Chlamydia pneumoniae (test code = 63660-2) Negative Negative Mycoplasma pneumoniae (test code = 56376-3) Negative Negative SHRUTHI (test code = SHRUTHI) Negative:A negativ e result does not rule-out infection. ?This assay does not test for all potential infectious agents. ? Positive:A positive test result does not necessarily indicate the presence of viable organism. ? Lab Interpretation (test code = 68777-8) [facility] BY [id number] 16:18:00* Test Item Value Reference Range Interpretation Comme nts Adenovirus (test code = 95353-2) Negative Negative Coronavirus HKU1 (test code = 58090-6) Negative Negative Coronavirus NL63 (test code = 03786-7) Negative Negative Coronavirus 229E (test code = 71470-0) Negative Negative Coronavirus OC43 (test code = 74960-7) Negative Negative Human Metapneumovirus (test code = 49424-6) Negative Negative Human Rhinovirus/Enterovirus (test code = 78979-8) Negative Negative Influenza A (test code = 84114-3) Negative Negative Influenza B (test code = 06163-2) Negative Negative Parainfluenza Virus 1 (test code = 81779-4) Negative Negative Parainfluenza Virus 2 (test code = 75844-1) Negative Negative Parainfluenza Virus 3 (test code = 47564-9) Negative Negative Parainfluenza Virus 4 (test code = 14368-5) Negative Negative Respiratory Syncytial Virus (test code = 79330-7) Negative Negative Bordetella parapertussis (test code = 54529-5) Negative Negative Bordetella pertussis (test code = 96795-2) Negative Negative Chlamydia pneumoniae (test code = 54230-4) Negative Negative Mycoplasma pneumoniae (test code = 03169-1) Negative Negative SHRUTHI (test code = SHRUTHI) Negative:A negativ e result does not rule-out infection. ?This assay does not test for all potential infectious agents. ? Positive:A positive test result does not necessarily indicate the presence of viable organism. ? Lab Interpretation (test code = 71353-8) Normal [facility]-REACTIVE [id number] 16:16:00* Test Item Value Reference Range Interpretation Comme nts CRP (test code = 9746454686) 2.2 mg/dL <0.8 H Lab Interpretation (test cod e = 38641-9) Abnormal [facility]-REACTIVE [id number] 16:16:00* Test Item Value Reference Range Interpretation Comme nts CRP (test code = 7676283442) 2.2 mg/dL <0.8 H Lab Interpretation (test cod e = 18023-0) [facility] [id number] 16:14:00* Test Item Value Reference Range Interpretation Comme nts FERRITIN (test code = 8433265759) 28.4 ng/mL 18-464 SHRUTHI (test code = SHRUTHI) Biotin has been reported to cause a negative bias, interpret results relative to patient's use of biotin. Lab Interpretation (test code = 43019-7) [facility] [id number] 16:14:00* Test Item Value Reference Range Interpretation Comme nts FERRITIN (test code = 2448879158) 28.4 ng/mL 18-464 SHRUTHI (test code = SHRUTHI) Biotin has been reported to cause a negative bias, interpret results relative to patient's use of biotin. Lab Interpretation (test code = 13498-7) [facility] CHEST 1 [id number] 14:02:17Ill-defined hazy airspace opacity throughout the lungs, are suspicious zaheer infectious process/atypical infections, including Covid-19 pneumonia. Preliminary Report Dictated by Resident: Jayme Schaeffer MD., have reviewed this study and agree with theabove report.EXAM: XRCHEST 1 VW HISTORY: SOB COMPARISON: None TECHNIQUE: ?Single ?PA view radiograph of the chest. FINDIN GS: The lungs are well-expanded and demonstrate ill-defined hazy airspaceopacity throughout, most severe in the right upper lobe. No pleuraleffusion or pneumothorax is identified. The cardiomediastinal silhouette is normal. No acute osseous abnormality is identified. [facility], Radiant Results Inft User- 03/01/2020 8:03 AM CSTEXAM: XR CHEST 1 VWHISTORY: SOB COMPARISON: NoneTECHNIQUE: Single PA view radiograph of the chest.FINDINGS:The lungs are well-expanded and demonstrate ill-defined hazy airspaceopacity throughout, most severe in the right upper lobe. No pleuraleffusion or pneumothorax is identified.The cardiomediastinal silhouette is normal.No acute osseous abnormality is identified.IMPRESSIONIll-defined hazy airspace opacity throughout the lungs, are suspicious zaheer infectious process/atypical infections, including Covid-19 pneumonia.Preliminary Report Dictated by Resident: Jayme Piña MD., have reviewed this study and agree with theabove report.[facility] 1 [id number] 14:02:17Ill- defined hazy airspace opacity throughout the lungs, are suspicious zaheer infectious process/atypical infections, including Covid-19 pneumonia. Preliminary Report Dictated by Resident: Jayme Schaeffer MD., have reviewed this study and agree with theabove report.EXAM: XR CHEST 1 VW HISTORY: SOB COMPARISON: None TECHNIQUE: ?Single ?PA view radiograph of the chest. FINDINGS: The lungs are well-expanded and demonstrate ill-defined hazy airspaceopacity throughout, most severe in the right upper lobe. No pleuraleffusion or pneumothorax is identified. The cardiomediastinal silhouette is normal. No acute osseous abnormality is identified. [facility], Radiant Results Inft User- 03/01/2020 8:03 AM CSTEXAM: XR CHEST 1 VWHISTORY: SOB COMPARISON: NoneTECHNIQUE: Single PA view radiograph of the chest.FINDINGS:The lungs are well-expanded and demonstrate ill-defined hazy airspaceopacity throughout, most severe in the right upper lobe. No pleuraleffusion or pneumothorax is ident ified.The cardiomediastinal silhouette is normal.No acute osseous abnormality is identified.IMPRESSIONIll-defined hazy airspace opacity throughout the lungs, are suspicious zaheer infectious process/atypical infections, including Covid-19 pneumonia.Preliminary Report Dictated by Resident: Jayme Piña MD., have reviewed this study and agree with theabove report.[facility] [id number] 13:56:00* Test Item Value Reference Range Interpretation Comme nts TSH (test code = 4413560255) See_Comment [Automated messa ge] The system which generated this result transmitted reference range: 0.45 - 4.70 mIU/L. The reference range was not used to interpret this result as normal/abnormal. Lab Interpretation (test code = 09375-5) Normal [facility] [id number] 13:56:00* Test Item Value Reference Range Interpretation Comme nts FREE T4 (test code = 0367280833) See_Comment L [Automated messa ge] The system which generated this result transmitted reference range: 0.78 - 2.20 ng/dL:. The reference range was not used to interpret this result as normal/abnormal. Lab Interpretation (test code = 25763-4) [facility]normal [facility]burg[facility] STIMULATING [id number] 13:56:00 * Test Item Value Reference Range Interpretation Comme nts TSH (test code = 4420879561) See_Comment [Automated messa ge] The system which generated this result transmitted reference range: 0.45 - 4.70 mIU/L. The reference range was not used to interpret this result as normal/abnormal. Lab Interpretation (test code = 97379-1) Normal [facility] [id number] 13:56:00* Test Item Value Reference Range Interpretation Comme nts FREE T4 (test code = 0389884794) See_Comment L [Automated messa ge] The system which generated this result transmitted reference range: 0.78 - 2.20 ng/dL:. The reference range was not used to interpret this result as normal/abnormal. Lab Interpretation (test code = 73869-7) [facility]normal [facility]burgLACTATE [id number] 13:21:00* Test Item Value Reference Range Interpretation Comme nts LDH (test code = 9642320151) 442 U/L 300-600 Lab Interpretation (test cod e = 30779-3) [facility]burgLACTATE [id number] 13:21:00* Test Item Value Reference Range Interpretation Comme nts LDH (test code = 4448441143) 442 U/L 300-600 Lab Interpretation (test cod e = 04472-4) Normal [facility]-[id number] 13:09:00* Test Item Value Reference Range Interpretation Comments D-DIMER (test code = 6652926513) See_Comment H [Automated message] The system which generated this result transmitted reference range: <0.50 ?g/mL (FEU). The reference range was not used to interpret this result as normal/abnormal. SHRUTHI (test code = SHRUTHI) This test may be used in conjunction with a clinical pretest probability (PTP) assessment model to exclude venous thromboembolism (VTE) in patients suspected of deep venous thrombosis (DVT) and pulmonary embolism (PE) A D-Dimer value less than 0.50 ?g/ml (FEU) has a negative predicative value of 96 to 100% (95% CI)and 97 to 100% (95% CI) as an aid in the diagnosis of deep vein thrombosis (DVT) and pulmonary embolism when there is low or moderate pretest probability of PE or DVT. D-Dimer values are expressed in initial fibrinogen equivalent units (FEU)" The assay results should be used with other information, including the clinical context, in forming a diagnosis. Lab Interpretation (test code = 62708-5) Abnormal [facility]-[id number] 13:09:00* Test Item Value Reference Range Interpretation Comments D-DIMER (test code = 1976425819) See_Comment H [Automated message] The system which generated this result transmitted reference range: <0.50 ?g/mL (FEU). The reference range was not used to interpret this result as normal/abnormal. SHRUTHI (test code = SHRUTHI) This test may be used in conjunction with a clinical pretest probability (PTP) assessment model to exclude venous thromboembolism (VTE) in patients suspected of deep venous thrombosis (DVT) and pulmonary embolism (PE) A D-Dimer value less than 0.50 ?g/ml (FEU) has a negative predicative value of 96 to 100% (95% CI)and 97 to 100% (95% CI) as an aid in the diagnosis of deep vein thrombosis (DVT) and pulmonary embolism when there is low or moderate pretest probability of PE or DVT. D-Dimer values are expressed in initial fibrinogen equivalent units (FEU)" The assay results should be used with other information, including the clinical context, in forming a diagnosis. Lab Interpretation (test code = 29151-9) [facility]normal [facility]inburgGlycosylated Hemoglobin (A1C)2020-03-01 12:25:00* Test Item Value Reference Range Interpretation Comme nts HGB A1C (test code = 4548-4) 8.9 % 4-6 H SHRUTHI (test code = SHRUTHI) %A1C (NGSP) Interpretation (ADA)4.8-5.6 ? ? Normal or (Non-Diabetic Range)5.7-6.4 ? ? Increased Risk (Pre-Diabetic)>6.5 ?Diabetes Indicated Lab Interpretation (test code = 46137-8) [facility]burgGlycosylated Hemoglobin (A1C)2020-03-01 12:25:00* Test Item Value Reference Range Interpretation Comme nts HGB A1C (test code = 4548-4) 8.9 % 4-6 H SHRUTHI (test code = SHRUTHI) %A1C (NGSP) Interpretation (ADA)4.8-5.6 ? ? Normal or (Non-Diabetic Range)5.7-6.4 ? ? Increased Risk (Pre-Diabetic)>6.5 ?Diabetes Indicated Lab Interpretation (test code = 02061-6) Abnormal [facility]burgTROPONIN [id number] 04:24:00* Test Item Value Reference Range Interpretation Comme nts TROPONIN I (test code = 6126413002) <0.012 See_Comment [Automated message] The system which generated this result transmitted reference range: <=0.034 ng/mL. The reference range was not used to interpret this result as normal/abnormal. SHRUHTI (test code = SHRUTHI) Equal or Less than 0.034 ng/ml---Normal ?Note: Cardiac troponin begins to rise 3-4 hours after the onset of ischemia. Repeat in 4-6 hours if the sample was drawn within 3-4 hours of the onset of the symptom and found normal. Between 0.035 and 0.120 ng/mL--- Borderline. Questionable myocardial injury or necrosis ? ?Note: Serial measurement may be necessary to confirm or exclude the diagnosis of myocardial injury or necrosis; Clinical correlation (symptoms, EKGs, imaging studies, and others) required; Repeat in 4-6 hours if clinically indicated. ? Equal or Higher than 0.121 ng/mL---Abnormal. Myocardial Injury or Necrosis Likely ? Biotin has been reported to cause a negative bias, interpret results relative to patient's use of biotin. ? Lab Interpretation (test code = 16335-8) [facility]burgTROPONIN [id number] 04:24:00* Test Item Value Reference Range Interpretation Comme nts TROPONIN I (test code = 2330620964) <0.012 See_Comment [Automated message] The system which generated this result transmitted reference range: <=0.034 ng/mL. The reference range was not used to interpret this result as normal/abnormal. SHRUTHI (test code = SHRUTHI) Equal or Less than 0.034 ng/ml---Normal ?Note: Cardiac troponin begins to rise 3-4 hours after the onset of ischemia. Repeat in 4-6 hours if the sample was drawn within 3-4 hours of the onset of the symptom and found normal. Between 0.035 and 0.120 ng/mL--- Borderline. Questionable myocardial injury or necrosis ? ?Note: Serial measurement may be necessary to confirm or exclude the diagnosis of myocardial injury or necrosis; Clinical correlation (symptoms, EKGs, imaging studies, and others) required; Repeat in 4-6 hours if clinically indicated. ? Equal or Higher than 0.121 ng/mL---Abnormal. Myocardial Injury or Necrosis Likely ? Biotin has been reported to cause a negative bias, interpret results relative to patient's use of biotin. ? Lab Interpretation (test code = 30755-7) [facility] R[facility]ID [facility]2020-03-01 04:22:00* Test Item Value Reference Range Interpretation Comme [facility] SARS-CoV-2 Rapid ID NOW (test code = 50530-9) Not Detected Not Detected SHRUTHI (test code = SHRUTHI) ID NOW COVID-19 As say is an isothermal nucleic acid amplification test intended for the qualitative detection of nucleic acid from SARS-CoV-2 viral RNA in nasopharyngeal (END STAPLER) specimens. It is used under Emergency Use Authorization (EUA) by [facility]. The limit of detection (LOD) of the assay is 125 Genome Equivalents/mL. A positive result is indicative of the presence of SARS-CoV-2 RNA. ?Clinical correlation with patient history and other diagnostic information is necessary to determine patient infection status. A negative (Not Detected) result does not preclude SARS-CoV-2 infection. In patients with clinical symptoms and other tests that are consistent with SARS-CoV-2 infection, negative results should be treated as presumptive negative and a new specimen should be tested with alternative PCR molecular test. Invalid: Please collect a new specimen for repeat patient testing if clinically indicated. Lab Interpretation (test code = 08320-9) [facility] (ID NOW RAPID TESTING)2020-03-01 04:22:00* Test Item Value Reference Range Interpretation Comme [facility] SARS-CoV-2 Rapid ID NOW (test code = 10701-3) Not Detected Not Detected SHRUTHI (test code = SHRUTHI) ID NOW COVID-19 As say is an isothermal nucleic acid amplification test intended for the qualitative detection of nucleic acid from SARS-CoV-2 viral RNA in nasopharyngeal (END STAPLER) specimens. It is used under Emergency Use Authorization (EUA) by [facility]. The limit of detection (LOD) of the assay is 125 Genome Equivalents/mL. A positive result is indicative of the presence of SARS-CoV-2 RNA. ?Clinical correlation with patient history and other diagnostic information is necessary to determine patient infection status. A negative (Not Detected) result does not preclude SARS-CoV-2 infection. In patients with clinical symptoms and other tests that are consistent with SARS-CoV-2 infection, negative results should be treated as presumptive negative and a new specimen should be tested with alternative PCR molecular test. Invalid: Please collect a new specimen for repeat patient testing if clinically indicated. Lab Interpretation (test code = 98189-9) [id number] 04:21:00* Test Item Value Reference Range Interpretation Comme nts NT-proBNP (test code = 6150570580) 740 pg/mL See_Comment H [Automated message] The system which generated this result transmitted reference range: <=125. The reference range was not used to interpret this result as normal/abnormal. SHRUTHI (test code = SHRUTHI) Biotin has been reported to cause a negative bias, interpret results relative to patient's use of biotin. Lab Interpretation (test code = 69430-3) [id number] 04:21:00* Test Item Value Reference Range Interpretation Comme nts NT-proBNP (test code = 7174955006) 740 pg/mL See_Comment H [Automated message] The system which generated this result transmitted reference range: <=125. The reference range was not used to interpret this result as normal/abnormal. SHRUTHI (test code = SHRUTHI) Biotin has been reported to cause a negative bias, interpret results relative to patient's use of biotin. Lab Interpretation (test code = 35922-8) Abnormal [facility]. METABOLIC PANEL (12806)2020-03-01 04:13:00* Test Item Value Reference Range Interpretation Comme nts NA (test code = 8569258492) 137 mmol/L 135-145 K (test code = 1958170424) 4.2 mmol/L 3.5-5 CL (test code = 0084230284) 99 mmol/L 98-108 CO2 TOTAL (test code = 3039615285) 30 mmol/L 23-31 AGAP (test code = 1814923844) 2-16 BUN (test code = 0101473919) 14 mg/dL 7-23 GLUCOSE (test code = 3796843412) 152 mg/dL 70-110 H CREATININE (test code = 7191184272) 0.96 mg/dL 0.6-1.25 TOTAL BILI (test code = 8826155809) 0.7 mg/dL 0.1-1.1 CALCIUM (test code = 8261058399) 9.3 mg/dL 8.6-10.6 T PROTEIN (test code = 9867090339) 6.6 g/dL 6.3-8.2 ALBUMIN (test code = 5043369579) 3.9 g/dL 3.5-5 ALK PHOS (test code = 5533995249) 75 U/L 34-122 ALTv (test code = 1742-6) 30 U/L 5-50 AST(SGOT) (test code = 1833391151) 25 U/L 13-40 eGFR Calculation (Non-) (test code = 3119544130) mL/min/1.73m2 eGFR Calculation () (test code = 3547001699) mL/min/1.73m2 SHRUTHI (test code = SHRUTHI) Association of Glomerular Filtration Rate (GFR) and Staging of Kidney Disease* + --+ --+ ------+| GFR (mL/min/1.73 m2) ?| With Kidney Damage ?| ?Without Kidney Damage+ --------+ --------+ +| ?>90 ?| ?Stage one ?| ? Normal ?+ ---+ ---+ -------+| ?60-89 ?| ?Stage two ?| ? Decreased GFR ? + --+ --+ ------+| ?30-59 ?| ?Stage three ?| ? Stage three ? + --+ --+ ------+| ?15-29 ?| ?Stage four ? | ? Stage four ?+ ---+ ---+ -------+| ?<15 (or dialysis) ? ?| ?Stage five ? | ? Stage five ?+ ---+ ---+ -------+ *Each stage assumes the associated GFR level has been in effect for at least three months. ?Stages 1 to 5, with or without kidney disease, indicate chronic kidney disease. Notes: Determination of stages one and two (with eGFR >59mL/min/1.73 m2) requires estimation of kidney damage for at least three months as defined by structural or functional abnormalities of the kidney, manifested by either:Pathological abnormalities or Markers of kidney damage (including abnormalities in the composition of the blood or urine or abnormalities in imaging tests). Lab Interpretation (test code = 80201-1) Abnormal [facility] METABOLIC PANEL (88672)2020-03-01 04:13:00* Test Item Value Reference Range Interpretation Comme nts NA (test code = 9650601754) 137 mmol/L 135-145 K (test code = 0930161459) 4.2 mmol/L 3.5-5 CL (test code = 3339003975) 99 mmol/L 98-108 CO2 TOTAL (test code = 7750189339) 30 mmol/L 23-31 AGAP (test code = 0042749407) 2-16 BUN (test code = 9815668359) 14 mg/dL 7-23 GLUCOSE (test code = 2190966883) 152 mg/dL 70-110 H CREATININE (test code = 7364826246) 0.96 mg/dL 0.6-1.25 TOTAL BILI (test code = 0022831158) 0.7 mg/dL 0.1-1.1 CALCIUM (test code = 0485538611) 9.3 mg/dL 8.6-10.6 T PROTEIN (test code = 8480438708) 6.6 g/dL 6.3-8.2 ALBUMIN (test code = 3842780689) 3.9 g/dL 3.5-5 ALK PHOS (test code = 1760415754) 75 U/L 34-122 ALTv (test code = 1742-6) 30 U/L 5-50 AST(SGOT) (test code = 3557617567) 25 U/L 13-40 eGFR Calculation (Non-) (test code = 4306712652) mL/min/1.73m2 eGFR Calculation () (test code = 3635660068) mL/min/1.73m2 SHRUTHI (test code = SHRUTHI) Association of Glomerular Filtration Rate (GFR) and Staging of Kidney Disease* + --+ --+ ------+| GFR (mL/min/1.73 m2) ?| With Kidney Damage ?| ?Without Kidney Damage+ --------+ --------+ +| ?>90 ?| ?Stage one ?| ? Normal ?+ ---+ ---+ -------+| ?60-89 ?| ?Stage two ?| ? Decreased GFR ? + --+ --+ ------+| ?30-59 ?| ?Stage three ?| ? Stage three ? + --+ --+ ------+| ?15-29 ?| ?Stage four ? | ? Stage four ?+ ---+ ---+ -------+| ?<15 (or dialysis) ? ?| ?Stage five ? | ? Stage five ?+ ---+ ---+ -------+ *Each stage assumes the associated GFR level has been in effect for at least three months. ?Stages 1 to 5, with or without kidney disease, indicate chronic kidney disease. Notes: Determination of stages one and two (with eGFR >59mL/min/1.73 m2) requires estimation of kidney damage for at least three months as defined by structural or functional abnormalities of the kidney, manifested by either:Pathological abnormalities or Markers of kidney damage (including abnormalities in the composition of the blood or urine or abnormalities in imaging tests). Lab Interpretation (test code = 04779-2) Abnormal [facility] WITH [id number] 04:00:00* Test Item Value Reference Range Interpretation Comme nts WBC (test code = 6690-2) See_Comment [[employer]] The system which generated this result transmitted reference range: 4.20 - 10.70 10*3/?L. The reference range was not used to interpret this result as normal/abnormal. RBC (test code = 789-8) See_Comment H [[employer]] The system which generated this result transmitted reference range: 4.26 - 5.52 10*6/?L. The reference range was not used to interpret this result as normal/abnormal. HGB (test code = 718-7) 16.1 g/dL 12.2-16.4 HCT (test code = 4544-3) 49.5 % 38.4-49.3 H MCV (test code = 787-2) 85.8 fL 81.7-95.6 MCH (test code = 785-6) 27.9 pg 26.1-32.7 MCHC (test code = 786-4) 32.5 g/dL 31.2-35 RDW-SD (test code = 81341-4) 40.5 fL 38.5-51.6 RDW-CV (test code = 788-0) 13.1 % 12.1-15.4 PLT (test code = 777-3) See_Comment [[employer]] The system which generated this result transmitted reference range: 150 - 328 10*3/?L. The reference range was not used to interpret this result as normal/abnormal. MPV (test code = 87386-1) 12.0 fL 9.8-13 NRBC/100 WBC (test code = 7924881431) See_Comment [Automated me ssage] The system which generated this result transmitted reference range: 0.0 - 10.0 /100 WBCs. The reference range was not used to interpret this result as normal/abnormal. NRBC x10^3 (test code = 1503113398) <0.01 See_Comment [Automated messa ge] The system which generated this result transmitted reference range: 10*3/?L. The reference range was not used to interpret this result as normal/abnormal. GRAN MAT (NEUT) % (test code = 770-8) 74.1 % IMM GRAN % (test code = 9600274322) 0.50 % LYMPH % (test code = 736-9) 13.7 % MONO % (test code = 5905-5) 9.8 % EOS % (test code = 713-8) 1.4 % BASO % (test code = 706-2) 0.5 % GRAN MAT x10^3(ANC) (test code = 8409558177) 7.38 10*3/uL 1.99-6.95 H IMM GRAN x10^3 (test code = 9978151556) 0.05 10*3/uL 0-0.06 LYMPH x10^3 (test code = 731-0) 1.36 10*3/uL 1.09-3.23 MONO x10^3 (test code = 742-7) 0.98 10*3/uL 0.36-1.02 EOS x10^3 (test code = 711-2) 0.14 10*3/uL 0.06-0.53 BASO x10^3 (test code = 704-7) 0.05 10*3/uL 0.01-0.09 Lab Interpretation (test code = 23912-7) Abnormal [facility] WITH [id number] 04:00:00* Test Item Value Reference Range Interpretation Comme nts WBC (test code = 6690-2) See_Comment [Automated messa ge] The system which generated this result transmitted reference range: 4.20 - 10.70 10*3/?L. The reference range was not used to interpret this result as normal/abnormal. RBC (test code = 789-8) See_Comment H [Automated messa ge] The system which generated this result transmitted reference range: 4.26 - 5.52 10*6/?L. The reference range was not used to interpret this result as normal/abnormal. HGB (test code = 718-7) 16.1 g/dL 12.2-16.4 HCT (test code = 4544-3) 49.5 % 38.4-49.3 H MCV (test code = 787-2) 85.8 fL 81.7-95.6 MCH (test code = 785-6) 27.9 pg 26.1-32.7 MCHC (test code = 786-4) 32.5 g/dL 31.2-35 RDW-SD (test code = 11036-3) 40.5 fL 38.5-51.6 RDW-CV (test code = 788-0) 13.1 % 12.1-15.4 PLT (test code = 777-3) See_Comment [Automated messa ge] The system which generated this result transmitted reference range: 150 - 328 10*3/?L. The reference range was not used to interpret this result as normal/abnormal. MPV (test code = 02941-9) 12.0 fL 9.8-13 NRBC/100 WBC (test code = 6924462687) See_Comment [Automated [employer] ssage] The system which generated this result transmitted reference range: 0.0 - 10.0 /100 WBCs. The reference range was not used to interpret this result as normal/abnormal. NRBC x10^3 (test code = 4539459865) <0.01 See_Comment [Automated messa ge] The system which generated this result transmitted reference range: 10*3/?L. The reference range was not used to interpret this result as normal/abnormal. GRAN MAT (NEUT) % (test code = 770-8) 74.1 % IMM GRAN % (test code = 6591515411) 0.50 % LYMPH % (test code = 736-9) 13.7 % MONO % (test code = 5905-5) 9.8 % EOS % (test code = 713-8) 1.4 % BASO % (test code = 706-2) 0.5 % GRAN MAT x10^3(ANC) (test code = 3225036403) 7.38 10*3/uL 1.99-6.95 H IMM GRAN x10^3 (test code = 6240096775) 0.05 10*3/uL 0-0.06 LYMPH x10^3 (test code = 731-0) 1.36 10*3/uL 1.09-3.23 MONO x10^3 (test code = 742-7) 0.98 10*3/uL 0.36-1.02 EOS x10^3 (test code = 711-2) 0.14 10*3/uL 0.06-0.53 BASO x10^3 (test code = 704-7) 0.05 10*3/uL 0.01-0.09 Lab Interpretation (test code = 38687-4) Abnormal [facility] Consult Notes Date/Time Note Provider Source 2023-09-25 11:33:00 [id number]:33:00A ssociated Order(s): CONSULT NEPHROLOGY CC AKIHISTORY OF PRESENT ILLNESSDavid Wilfredo Lizarraga is a 67 year old male with a past medical history of CAD status post stents, type 2 diabetes who presents with severe fatigue and was found to have sevefre volume depletion. Patient also has had multiple falls. He states he fell backwards yesterday when going up a hill. The family brought him into the hospital for further evaluation. He states he has been outside working outside.He denies any chest pain or shortness of breath. He denies having any palpitations. Patient states he did have some episodes of emesis but those are resolved since he has been in the hospital.Patient was found to have severe acute on chronic kidney injury and is started on IV fluids.PAST MEDICAL HISTORYPast Medical History:Diagnosis DateADD (attention deficit disorder)AnxietyCoronary heart diseasePCI 2013Essential hypertension, benignOther and unspecified hyperlipidemiaOther testicular hypofunctionType II or unspecified type diabetes mellitus without mention of complication, not stated as uncontrolledUnspecified hypothyroidismPAST SURGICAL HISTORYPast Surgical History:Procedure Laterality DateARTHROSCOPIC SHOULDER ROTATOR CUFF REPAIR [id number] Bilateralarthroscopic meniscus repairSTENT PLACEMENT (SHX)heart ~2010ALLERGIESNo Known AllergiesMEDICATIONSCurrent home medication list reviewed:Patient's MedicationsSTART taking these medicationsNo medications on fileCONTINUE taking these medications which have NOT CHANGEDALPRAZOLAM 0.5 MG TABLET Take 0.5 tablets by mouth every morning, THEN 0.5 tablets every other day.AMLODIPINE 5 MG TABLET Take 1 tablet by mouth in the morning.ARMOUR THYROID 120 MG TABLET TAKE ONE (1) TABLET(S) BY MOUTH ONCE A DAY IN THE MORNING.ASPIRIN 81 MG EC TABLET Take 1 tablet by mouth daily.CLOPIDOGREL 75 MG TABLET Take 1 tablet by mouth daily.FARXIGA 5 MG TABLET Take 1 tablet by mouth in the morning.HYDROCODONE-ACETAMINOPHEN 5-325 MG TABLET Take 1 tablet by mouth every 6 (six) hours as needed.LISDEXAMFETAMINE 70 MG CAPSULE Take 1 capsule by mouth in the morning.LISINOPRIL 20 MG TABLET Take 1 tablet by mouth daily.METFORMIN 500 MG TABLET Take 2 tablets by mouth in the morning and 2 tablets in the evening. Take with meals.MULTIVITAMIN ORAL Take 1 tablet by mouth in the morning.NEBIVOLOL 10 MG TABLET Take 1 tablet by mouth in the morning.PREGABALIN 75 MG CAPSULE TAKE ONE (1) CAPSULE(S) BY MOUTH TWICE A DAY.ROSUVASTATIN 10 MG TABLET Take 1 tablet by mouth at bedtime.SEMAGLUTIDE (OZEMPIC) 1 MG/DOSE (4 MG/3 ML) PNIJ INJECT 1MG UNDER THE SKIN ONCE WEEKLY.SILDENAFIL 100 MG TABLET TAKE 0.5-1 TABLET(S) BY MOUTH 1 HOUR PRIOR TO SEX.TAMSULOSIN 0.4 MG 24 HR CAPSULE Take 1 capsule by mouth in the morning.START taking Modified Medications as PrescribedNo medications on fileSTOP taking these medicationsNo medications on fileFAMILY HISTORYFamily HistoryProblem Relation Age of OnsetCancer FatherpancreaseHypertension FatherCancer MotherlungDiabetes Paternal UncleSOCIAL HISTORYSocial HistorySocioeconomic HistoryMarital status: 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: [employer] UseSmoking status: NeverSmokeless tobacco: FormerTypes: ChewTobacco comments:1 can/day, 12 yrsVaping UseVaping status: Never UsedSubstance and Sexual ActivityAlcohol use: YesAlcohol/week: 1.7 standard drinks of alcoholTypes: 2 drink(s) per weekComment: rarelyDrug use: NoSexual activity: YesSocial Determinants of HealthFood Insecurity: No Food Insecurity (03/01/2020)Hunger Vital SignWorried About Running Out of Food in the Last Year: Never trueRan Out of Food in the Last Year: Never trueTransportation Needs: No Transportation Needs (03/01/2020)PRAPARE - TransportationLack of Transportation (Medical): NoLack of Transportation (Non-Medical): NoREVIEW OF [id number] systems negative except per HPIPHYSICAL EXAMINATIONVitalsBP 121/65 | Pulse 69 | Temp 36.6 ?C (97.9 ?F) (Oral) | Resp 18 | Ht 1.778 m (5' 10") | Wt 83.9 kg (185 lb) | SpO2 92% | BMI 26.54 kg/m?General: No acute distressHEENT: Normal oral mucosa, anicteric sclerae, NCATCardiovascular: RRRLungs: Symmetric expansion, clear bilaterallyAbdomen: Soft, NTNDMusculoskeletal: No synovitis, normal muscle massGenitourinary: DeferredSkin: No rash, no skin lesionsExtremities: No clubbing, no cyanosis, no lower extremity edemaNeuro: AAOx3, no focal deficitsPsych: Normal affectLABS - reviewed pertinent labs as below:CBC BMP PT/INRWBC (10*3/?L)Date Value09/24/2023 8.07NA (mmol/L)Date Value09/24/2023 137No results found for: "PT"RBC (10*6/?L)Date Value09/24/2023 4.66K (mmol/L)Date Value09/24/2023 4.2No results found for: "PTINR"PLT (10*3/?L)Date Value09/24/2023 164CALCIUM (mg/dL)Date Value09/24/2023 8.8HGB (g/dL)Date Value09/24/2023 13.5CL (mmol/L)Date Value09/24/2023 99aPTTHCT (%)Date Value09/24/2023 41.4BUN (mg/dL)Date Value09/24/2023 39 (H)No results found for: "APTTPAT"CREATININE (mg/dL)Date Value09/24/2023 3.52 (H)IMAGING - reviewed, pertinent results as below:Hospital Encounter on 09/24/23CT HEAD WO CONTRASTNarrativeEXAM: CT HEAD WO CONTRASTHISTORY: 67 years-old Male; Provided indication: Mental status change,unknown cause, Recurrent Falls, X3 today. Pt on Plavix .TECHNIQUE: Axial CT of the head was performed and reconstructed at 5 mmintervals. Coronal and sagittal reformatted images were generated.COMPARISON: NoneFINDINGS:The ventricles and cerebral sulci are normal in caliber and configuration.No midline shift or pathological extra-axial fluid collection is present.The basal cisterns are unremarkable.No acute intraparenchymal hemorrhage or significant mass effect isvisualized. No parenchymal attenuation abnormality is seen. The blair-whitematter differentiation is preserved.The mastoid air cells and paranasal air sinuses are clear. The calvariumand central skull base are unremarkable.ImpressionNo acute intracranial abnormality.Preliminary Report Dictated by Resident: Autumn MuellerMENT:1. Syncope with fall2. Acute renal insufficiency3. History of CAD with history of stents4. Type 2 diabetes, possible diabetic kidney disease5. Hypovolemia6. History of hypertensionPLAN:1. Acute kidney injury secondary to hypovolemia; continue with aggressive IV hydration. Continue monitoring renal function. Will check a renal ultrasound as well. Check UA to rule out active urinary sediment , check urine prot/creat2. Syncope with fall; carotid Doppler and echocardiogram. Monitor on telemetry.I recommend cardiology consult.3. History of type 2 diabetes; strict blood sugar control, check proteinuria.4. History of hypertension; continue with antihypertensives, avoid ACEI , ARB5. History of CAD with cardiac stents; work-up per primary team [id number] hcjdNT2152-60-88Z00:43:28Consult noteTXT1.2.840.512025.1.13.104.2.7 .[id number]|[id number] for patient ipym24928-2Pxvgywk noteLNNARRATIVEFormatted C-CDA narrative textIM-NEPHROLOGY STAFFIM-NEPHROLOGY STAFF[address] [id number] 42QWWTSYTOCSHRSWRWOPZTCD9350-00-48 T21:43:281.2.840.285215.1.72.3.15| 1.2.840.441838.1.13.104.2.7.2.7278 [id number] IM-NEPHROLOGY STAFF [facility] History and Physical Notes Date/Time Note Provider Source 2023-09-25 00:36:27 [id number]:36:27F ormatting of this note is different from the original.[facility] Hospitalist Admission H&PDate of Service: 4CHIEF COMPLAINT: Acute kidney injury; dehydrationHISTORY OF PRESENT ILLNESSDavid Wilfredo Lizarraga is a 67 year old male with a past medical history of CAD status post stents, type 2 diabetes who presents with severe dehydration. Patient also has had multiple falls. He states he fell backwards yesterday when going up a hill. The family brought him into the hospital for further evaluation. He states he has been outside working quite a bit lately. He is unsure if he has been keeping himself well-hydrated. He denies any chest pain or shortness of breath. He denies having any palpitations. Patient states he did have some episodes of emesis but those are resolved since he has been in the hospital. At this time, he will be admitted to the hospital for further treatment of his acute renal insufficiency. Will also monitor him on telemetry for his syncopal episode. Will check an echocardiogram and a carotid Doppler. Patient will be admitted for inpatient hospitalization because of the significant worsening of his renal insufficiency.PAST MEDICAL HISTORYPast Medical History:Diagnosis DateADD (attention deficit disorder)AnxietyCoronary heart diseasePCI 2013Essential hypertension, benignOther and unspecified hyperlipidemiaOther testicular hypofunctionType II or unspecified type diabetes mellitus without mention of complication, not stated as uncontrolledUnspecified hypothyroidismPAST SURGICAL HISTORYPast Surgical History:Procedure Laterality DateARTHROSCOPIC SHOULDER ROTATOR CUFF REPAIR [id number] Bilateralarthroscopic meniscus repairSTENT PLACEMENT (SHX)heart ~2010ALLERGIESNo Known AllergiesMEDICATIONSCurrent home medication list reviewed:Patient's MedicationsSTART taking these medicationsNo medications on fileCONTINUE taking these medications which have NOT CHANGEDALPRAZOLAM 0.5 MG TABLET Take 0.5 tablets by mouth every morning, THEN 0.5 tablets every other day.AMLODIPINE 5 MG TABLET Take 1 tablet by mouth in the morning.ARMOUR THYROID 120 MG TABLET TAKE ONE (1) TABLET(S) BY MOUTH ONCE A DAY IN THE MORNING.ASPIRIN 81 MG EC TABLET Take 1 tablet by mouth daily.CLOPIDOGREL 75 MG TABLET Take 1 tablet by mouth daily.FARXIGA 5 MG TABLET Take 1 tablet by mouth in the morning.HYDROCODONE-ACETAMINOPHEN 5-325 MG TABLET Take 1 tablet by mouth every 6 (six) hours as needed.LISDEXAMFETAMINE 70 MG CAPSULE Take 1 capsule by mouth in the morning.LISINOPRIL 20 MG TABLET Take 1 tablet by mouth daily.METFORMIN 500 MG TABLET Take 2 tablets by mouth in the morning and 2 tablets in the evening. Take with meals.MULTIVITAMIN ORAL Take 1 tablet by mouth in the morning.NEBIVOLOL 10 MG TABLET Take 1 tablet by mouth in the morning.PREGABALIN 75 MG CAPSULE TAKE ONE (1) CAPSULE(S) BY MOUTH TWICE A DAY.ROSUVASTATIN 10 MG TABLET Take 1 tablet by mouth at bedtime.SEMAGLUTIDE (OZEMPIC) 1 MG/DOSE (4 MG/3 ML) PNIJ INJECT 1MG UNDER THE SKIN ONCE WEEKLY.SILDENAFIL 100 MG TABLET TAKE 0.5-1 TABLET(S) BY MOUTH 1 HOUR PRIOR TO SEX.TAMSULOSIN 0.4 MG 24 HR CAPSULE Take 1 capsule by mouth in the morning.START taking Modified Medications as PrescribedNo medications on fileSTOP taking these medicationsNo medications on fileFAMILY HISTORYFamily HistoryProblem Relation Age of OnsetCancer FatherpancreaseHypertension FatherCancer MotherlungDiabetes Paternal UncleSOCIAL HISTORYSocial HistorySocioeconomic HistoryMarital status: 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: [employer] UseSmoking status: NeverSmokeless tobacco: FormerTypes: ChewTobacco comments:1 can/day, 12 yrsVaping UseVaping status: Never UsedSubstance and Sexual ActivityAlcohol use: YesAlcohol/week: 1.7 standard drinks of alcoholTypes: 2 drink(s) per weekComment: rarelyDrug use: NoSexual activity: YesSocial Determinants of HealthFood Insecurity: No Food Insecurity (03/01/2020)Hunger Vital SignWorried About Running Out of Food in the Last Year: Never trueRan Out of Food in the Last Year: Never trueTransportation Needs: No Transportation Needs (03/01/2020)PRAPARE - TransportationLack of Transportation (Medical): NoLack of Transportation (Non-Medical): [place]10 systems negative except per HPIPHYSICAL EXAMINATIONBP 121/65 | Pulse 69 | Temp 36.6 ?C (97.9 ?F) (Oral) | Resp 18 | Ht 1.778 m (5' 10") | Wt 83.9 kg (185 lb) | SpO2 92% | BMI 26.54 kg/m?General: No acute distressHEENT: Normal oral mucosa, anicteric sclerae, NCATCardiovascular: RRRLungs: Symmetric expansion, clear bilaterallyAbdomen: Soft, NTNDMusculoskeletal: No synovitis, normal muscle massGenitourinary: DeferredSkin: No rash, no skin lesionsExtremities: No clubbing, no cyanosis, no lower extremity edemaNeuro: AAOx3, no focal deficitsPsych: Normal affectLABS - reviewed pertinent labs as below:CBC BMP PT/INRWBC (10*3/?L)Date Value09/24/2023 8.07NA (mmol/L)Date Value09/24/2023 137No results found for: "PT"RBC (10*6/?L)Date Value09/24/2023 4.66K (mmol/L)Date Value09/24/2023 4.2No results found for: "PTINR"PLT (10*3/?L)Date Value09/24/2023 164CALCIUM (mg/dL)Date Value09/24/2023 8.8HGB (g/dL)Date Value09/24/2023 13.5CL (mmol/L)Date Value09/24/2023 99aPTTHCT (%)Date Value09/24/2023 41.4BUN (mg/dL)Date Value09/24/2023 39 (H)No results found for: "APTTPAT"CREATININE (mg/dL)Date Value09/24/2023 3.52 (H)IMAGING - reviewed, pertinent results as below:Hospital Encounter on 09/24/23CT HEAD WO CONTRASTNarrativeEXAM: CT HEAD WO CONTRASTHISTORY: 67 years-old Male; Provided indication: Mental status change,unknown cause, Recurrent Falls, X3 today. Pt on Plavix .TECHNIQUE: Axial CT of the head was performed and reconstructed at 5 mmintervals. Coronal and sagittal reformatted images were generated.COMPARISON: NoneFINDINGS:The ventricles and cerebral sulci are normal in caliber and configuration.No midline shift or pathological extra-axial fluid collection is present.The basal cisterns are unremarkable.No acute intraparenchymal hemorrhage or significant mass effect isvisualized. No parenchymal attenuation abnormality is seen. The blair-whitematter differentiation is preserved.The mastoid air cells and paranasal air sinuses are clear. The calvariumand central skull base are unremarkable.ImpressionNo acute intracranial abnormality.Preliminary Report Dictated by Resident: Autumn MuellerMENT:1. Syncope with fall2. Acute renal insufficiency3. History of CAD with history of stents4. Type 2 diabetes5. Dehydration6. History of hypertension7. History of ADDPLAN:1. Acute kidney injury secondary to dehydration; continue with aggressive IV hydration. Continue monitoring renal function. Will check a renal ultrasound as well. Nephrology consultation if renal function is not improving.2. Syncope with fall; carotid Doppler and echocardiogram. Monitor on telemetry. Most likely related to dehydration.3. History of type 2 diabetes; strict blood sugar control4. History of hypertension; continue with antihypertensives5. History of CAD with cardiac stents; resume cardiac meds6. GI DVT prophylaxisDVT prophylaxis: heparinStress ulcer prophylaxis: pantoprazoleCode status: FULLAdvanced Care Planning (Z71.89)Above assessment and plan discussed at length with patient, patient expressed full understanding. 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 2.7.2.727879_[id number] [facility] Notes Date/Time Note Provider Source 2023-09-29 08:16:22 6894-92-26Z30:16:22 TRANSITIONAL CARE MANAGEMENT ASSESSMENT4David Wilfredo [id number] Wilfredo Lizarraga is a 67 year old /White male was admitted on 09/24/23 to [facility], ADC MED SURG. He was discharged on 09/26/23 with discharge disposition of HR- Routine Discharge.Admitting Physician: Maverick NunnDischarge Diagnosis: AKIBronchitisSyncopeHx DM2Hx HTNHx CAD s/p PCINo linked episodesTCM Fan-mypv-px-face outreach documentation: Care Transition CM made f/u call to pt post-discharge x2. No response and call went to voicemail. CM left a discreet message with purpose of call and CM's call back information.Discharge AssessmentChart Assessed: 09/29/23TCM Outreach Completed: 09/29/23Future Appointments: 46689-3Vobhwctda encounter WacpUK9959-96-57O34:16:41Telephone encounter NoteTXT1.2.840.814719.1.13.104.2.7.2.7 88122|[id number] for patient qjsx80963-1WqzmVAVAYILZAFQElceotdon C-CDA narrative [id number] JARRELL[id number] YGQVTLMLPOBUUQCVGIRH0677-48-66U90:16:4 11.2.840.844282.1.72.3.15|1.2.840.1143 50.1.13.104.2.7.2.727879_[id number] Noelle Sampson RN [facility] 2023-09-28 16:14:50 0215-52-46A56:14:50 Care Transition CM made f/u call to pt post-discharge. No response and call went to voicemail. CM left a discreet message with purpose of call and CM's call back information.Noelle Sampson RN, BSNCare Sales Technician [employer]-Transitions of [phone] signed by Noelle Sampson RN at 09/28/2023 4:15 PM BEB60944-6Negonuwzf encounter BchzID3117-69-85J44:15:12Telephone encounter NoteTXT1.2.840.470248.1.13.104.2.7.2.7 69485|[id number] for patient geoc29009-0HucrJZKIHRSRWUBRevdxnjfu C-CDA narrative textUT[id number] JACMZQJIBKDTTDBGWOGD3052-64-79F78:15:1 21.2.840.266228.1.72.3.15|1.2.840.1143 50.1.13.104.2.7.2.727879_[id number] [facility] 2023-09-26 15:40:02 0174-86-64Q20:40:02 Problem: PainGoal: Control of pain at or below patient's documented comfort goalOutcome: Adequate for dischargeGoal: Reduction in pain sensationOutcome: Adequate for dischargeProblem: Falls, Risk ofGoal: Absence of fallsOutcome: Adequate for dischargeProblem: Infection RiskGoal: Absence of infectionOutcome: Adequate for dischargeProblem: Discharge PlanningGoal: Adequate for dischargeOutcome: Adequate for dischargeGoal: Effective communicationOutcome: Adequate for dischargeProblem: Skin integrity Impaired (Risk or Actual)Goal: Wound healingOutcome: Adequate for dischargeGoal: Prevention of new skin breakdownOutcome: Adequate for dischargeProblem: Venous Thromboembolism, (actual or risk of)Goal: Absence of venous thromboembolism (Risk)Outcome: Adequate for dischargeGoal: Prevent further complications associated with VTE diagnosis (Actual)Outcome: Adequate for discharge 93023-2Ghbr of care biyjVU2318-88-44H90:40:06Plan of care noteTXT1.2.840.751381.1.13.104.2.7.2.7 13500|[id number] for patient ozcr67756-6DnefIZGDGHCYFWLStmpauhhf C-CDA narrative [id number] H Morgan RN[address] Ao[id number] KEKSUDPZHRFKDSMIFAGN0985-82-56R74:40:0 61.2.840.689611.1.72.3.15|1.2.840.1143 50.1.13.104.2.7.2.727879_[id number] Tim Mendoza RN [facility] 2023-09-26 12:10:59 0822-89-47Z01:10:59 Problem: PainGoal: Control of pain at or below patient's documented comfort goalOutcome: Progressing as expectedGoal: Reduction in pain sensationOutcome: Progressing as expectedProblem: Falls, Risk ofGoal: Absence of fallsOutcome: Progressing as expectedProblem: Infection RiskGoal: Absence of infectionOutcome: Progressing as expectedProblem: Discharge PlanningGoal: Adequate for dischargeOutcome: Progressing as expectedGoal: Effective communicationOutcome: Progressing as expectedProblem: Skin integrity Impaired (Risk or Actual)Goal: Wound healingOutcome: Progressing as expectedGoal: Prevention of new skin breakdownOutcome: Progressing as expectedProblem: Venous Thromboembolism, (actual or risk of)Goal: Absence of venous thromboembolism (Risk)Outcome: Progressing as expectedGoal: Prevent further complications associated with VTE diagnosis (Actual)Outcome: Progressing as expected 33004-2Imzp of care qimkPP4638-78-80F18:11:01Plan of care noteTXT1.2.840.771821.1.13.104.2.7.2.7 25634|[id number] for patient twhl00022-3BjwjYLZCXEIHDDASwcdfxkdo C-CDA narrative [id number] L Saldana RNUT[id number] SNERXZTHSKDBNEMDGAAW0649-46-46M24:11:0 11.2.840.853382.1.72.3.15|1.2.840.1143 50.1.13.104.2.7.2.727879_[id number] Dakotah Ovalle RN [facility] 2023-09-26 00:56:08 7377-40-10J58:56:08 Problem: PainGoal: Control of pain at or below patient's documented comfort goalOutcome: Progressing as expectedGoal: Reduction in pain sensationOutcome: Progressing as expectedProblem: Falls, Risk ofGoal: Absence of fallsOutcome: Progressing as expectedProblem: Infection RiskGoal: Absence of infectionOutcome: Progressing as expectedProblem: Discharge PlanningGoal: Adequate for dischargeOutcome: Progressing as expectedGoal: Effective communicationOutcome: Progressing as expectedProblem: Skin integrity Impaired (Risk or Actual)Goal: Wound healingOutcome: Progressing as expectedGoal: Prevention of new skin breakdownOutcome: Progressing as expectedProblem: Venous Thromboembolism, (actual or risk of)Goal: Absence of venous thromboembolism (Risk)Outcome: Progressing as expectedGoal: Prevent further complications associated with VTE diagnosis (Actual)Outcome: Progressing as expected 56115-7Zhgm of care zqjyZI6651-45-79M20:56:12Plan of care noteTXT1.2.840.400258.1.13.104.2.7.2.7 82135|[id number] for patient hdrd49832-6HcgiDLIHZXFLCBXRznhtkysw C-CDA narrative [id number] Cardenas RN[id number] ZOAGTZJMUISSFWGUFZJF0071-32-84S12:56:1 21.2.840.521309.1.72.3.15|1.2.840.1143 50.1.13.104.2.7.2.727879_[id number] Sayra Hurst [facility] 2023-09-25 12:28:56 6626-16-92O89:28:56 Problem: PainGoal: Control of pain at or below patient's documented comfort goal09/25/2023 1228 by Dakotah Ovalle RNOutcome: Progressing as expected09/25/2023 1228 by Dakotah Ovalle RNOutcome: Progressing as expectedGoal: Reduction in pain sensation09/25/2023 1228 by Dakotah Ovalle RNOutcome: Progressing as expected09/25/2023 1228 by Dakotah Ovalle RNOutcome: Progressing as expectedProblem: Falls, Risk ofGoal: Absence of falls09/25/2023 1228 by Dakotah Ovalle RNOutcome: Progressing as expected09/25/2023 1228 by Dakotah Ovalle RNOutcome: Progressing as expectedProblem: Infection RiskGoal: Absence of infection09/25/2023 1228 by Dakotah Ovalle RNOutcome: Progressing as expected09/25/2023 1228 by Dakotah Ovalle RNOutcome: Progressing as expectedProblem: Discharge PlanningGoal: Adequate for dischargeOutcome: Progressing as expectedGoal: Effective communicationOutcome: Progressing as expectedProblem: Skin integrity Impaired (Risk or Actual)Goal: Wound healingOutcome: Progressing as expectedGoal: Prevention of new skin breakdownOutcome: Progressing as expectedProblem: Venous Thromboembolism, (actual or risk of)Goal: Absence of venous thromboembolism (Risk)Outcome: Progressing as expectedGoal: Prevent further complications associated with VTE diagnosis (Actual)Outcome: Progressing as expected 44943-2Qnjf of care bficFM0024-16-52E79:28:59Plan of care noteTXT1.2.840.851141.1.13.104.2.7.2.7 11822|[id number] for patient urey24086-5PgguEBDNZBHCEVBRhekrydab C-CDA narrative textUT[address] Rb[id number] BZESLFZPNRWQIACBHUXF9488-58-10I34:28:5 91.2.840.598351.1.72.3.15|1.2.840.1143 50.1.13.104.2.7.2.727879_[id number] [facility] 2023-09-25 05:28:30 7716-35-26P23:28:30 Problem: PainGoal: Control of pain at or below patient's documented comfort goalOutcome: Progressing as expectedGoal: Reduction in pain sensationOutcome: Progressing as expectedProblem: Falls, Risk ofGoal: Absence of fallsOutcome: Progressing as expectedProblem: Infection RiskGoal: Absence of infectionOutcome: Progressing as expected 43096-7Nspj of care odgmGA3298-62-41P85:28:39Plan of care noteTXT1.2.840.580909.1.13.104.2.7.2.7 90652|[id number] for patient gfks29123-3HzoaEUISXHCXVNKFabkqnznx C-CDA narrative [id number] D Brown RN[id number] NCQUZSOSBUTNJDXCSTVG8194-65-83F56:28:3 91.2.840.585612.1.72.3.15|1.2.840.1143 50.1.13.104.2.7.2.727879_[id number] Valery Landrum RN [facility] 2023-09-25 00:58:11 6643-29-26Q87:58:11 Nurse ReportReport given to HAYES Rebolledo. Chief complaint, assessment findings, infusion verify and orders reviewed. Plan of care discussed at bedside with patient and both nurses. Patient/[place] [address]-4Nrxqasaan department IcfqBP3840-77-97Z54:58:19[facility] department NoteTXT1.2.840.389527.1.13.104.2.7.2.7 48370|[id number] for patient cztu11318-5OgedSEJDXOFCOHHXfgjlopil C-CDA narrative text[id number] MYVMTYYFIXMSKOWVNIQR7411-39-65N25:58:1 91.2.840.199939.1.72.3.15|1.2.840.1143 50.1.13.104.2.7.2.727879_[id number] [facility] 2023-09-25 00:57:45 6226-29-30N12:57:[address] [facility] for diagnosis of AKIPatient agrees to admission, discussed plan of care with patient and family.Patient is awake, alert, oriented, resp reg unlabored, color appropriate for race, PIV intactNo adverse reaction to medications administered while in EDBelongings with patient to unit 16641-0Jcvyqvemv department UlcgZW2939-59-57T26:58:06[facility] department NoteTXT1.2.840.903058.1.13.104.2.7.2.7 87454|[id number] for patient skgl68418-1FtqcUQQCPYPDLQWVjeaoekni C-CDA narrative [id number] VTGJAINQNEGNJCXLHOZN5659-80-57C62:58:0 61.2.840.889341.1.72.3.15|1.2.840.1143 50.1.13.104.2.7.2.727879_[id number] [facility] 2023-09-24 22:01:36 6116-45-56E94:01:[address] [facility], states" 67 M due to collapse after working out of the heat , when we saw him, he is AOX$, hypotensive 74/42, g 18 left AC, give him a liter of NSS, repeat bp is 95/48mmhg. He is taking plavix nd denies any head injury, only abrasion on the right elbow"Able to verbalized name and birthday, lying on bed. 56035-4Ebgfbqdfs department Triage bmqxLK4742-17-73J84:04:26[facility] Triage noteTXT1.2.840.231796.1.13.104.2.7.2.7 69706|[id number] for patient qkzt34480-8Vjvxiobkv department NoteLNNARRATIVEFormatted C-CDA narrative [id number] D Latorilla RN[address] Vj[id number] IWJHNUULMYUHRSYUIOAG5051-22-63J49:04:2 61.2.840.640194.1.72.3.15|1.2.840.1143 50.1.13.104.2.7.2.727879_[id number] Vi Singh RN [facility] 2023-09-24 22:00:00 7751-10-56J11:00:00Associated Order(s): EKG-12 Lead ROUTINE ONCEPre-Procedure Diagnose(s): Recurrent falls while walkingPost-Procedure Diagnose(s): Recurrent falls while walking [facility] Emergency Department NotePatient Name: Navin LizarragaDate of : 1955 67 year old maleTreatment Room: [facility]/PU7Opeijqf Record Number: [id number] Care Physician: Sloan SpannPatient Escorted by: Self [9]Mode of Arrival: EMS - [facility] ([place]) [43]EMS Treatment Prior to ED Arrival:PRESS OPERATOR treatment comments: nss 1000mlTravel and Exposure Screening:SymptomsDoes patient have any of these symptoms?: (not recorded)Exposure ScreeningHas patient had contact with someone with a communicable disease in the last month?: (not recorded)Diseases exposed to:: (not recorded)Is Patient ?: (not recorded)Exposure Date: (not recorded)Chief Complaint:Chief ComplaintPatient presents withFallHistory of Present Illness:Navin Lizarraga is a 67 year old male with numerous medical conditions as listed below who presents to the ED for evaluation of recurrent falls. Pt fell backwards after taking a few steps backwards, while trying to walk uphill to his house. He rested on the grass, got up and attempted to continue walking uphill to his house and fell again. He had a third fall prompting EMS activation by family. No chest pain. No palpitations. Pt has vomited X 3. No headache. No SOB/Dyspnea. No AMS. No focal weakness. Pt has had only breakfast all day. Deneis ANY injury resulting from the fall. He is on Plavix and ASAHistory provided by: Patient, medical records and EMS personnelLanguage training facilitator used: NoTraumaMechanism of injury: FallIncident location: homeTime since incident: 2 hoursArrived directly from scene: yesFall:Fall occurred: walkingHeight of fall: Ground levelImpact surface: grassPoint of impact: backEntrapped after fall: noProtective equipment:NoneSuspicion of alcohol use: noSuspicion of drug use: noEMS/PRESS OPERATOR data:Bystander interventions: noneAmbulatory at scene: yesBlood loss: noneResponsiveness: alertOriented to: person, place, situation and timeLoss of consciousness: noAmnesic to event: noAirway interventions: noneMedications administered: noneImmobilization: noneAirway condition since incident: stableBreathing condition since incident: stableCirculation condition since incident: stableMental status condition since incident: stableDisability condition since incident: stableCurrent symptoms:Pain scale: 0/10Associated symptoms:Reports nausea and vomiting.Denies abdominal pain, back pain, blindness, chest pain, difficulty breathing, headache, hearing loss, loss of consciousness, neck pain and seizures.Relevant PMH:Pharmacological risk factors:Anticoagulation therapy and antiplatelet therapy.Tetanus status: UTDThe patient has not been admitted to the hospital due to injury in the past year, and has not been treated and released from the ED due to injury in the past year.Past Medical History/Immunizations:Past Medical History:Diagnosis DateADD (attention deficit disorder)AnxietyCoronary heart diseasePCI 2013Essential hypertension, benignOther and unspecified hyperlipidemiaOther testicular hypofunctionType II or unspecified type diabetes mellitus without mention of complication, not stated as uncontrolledUnspecified hypothyroidismBPHChronic Low Back PainTetanus received in last 5 years: YesAllergies:No Known AllergiesPast Social History:Tobacco UseNeverSmokeless Tobacco: Former user of smokeless tobacco; Types: Chew.Comments: 1 can/day, 12 yrsVaping UseNever usedAlcohol UseYes; 1.7 standard drinks of alcohol per week; 2 drinks.Comments: rarelyDrug UseNo.Sexual ActivitySexually active.Past Surgical History:Past Surgical History:Procedure Laterality DateARTHROSCOPIC SHOULDER ROTATOR CUFF REPAIR Wlfzz3xIVRHJ Bilateralarthroscopic meniscus repairSTENT PLACEMENT (SHX)heart ~2010Review of Systems:Review of SystemsConstitutional: Negative.HENT: Negative. Negative for hearing loss.Eyes: Negative. Negative for blindness.Respiratory: Negative.Breasts: Negative.Cardiovascular: Negative. Negative for chest pain.Gastrointestinal: Positive for nausea and vomiting. Negative for abdominal pain.Genitourinary: Negative.Musculoskeletal: Negative. Negative for arthralgias, back pain, gait problem, joint swelling, myalgias and neck pain.Skin: Negative.Neurological: Negative. Negative for seizures, loss of consciousness and headaches.Psychiatric/Behavioral: Negative.All other systems reviewed and are negative.Endocrine: Endocrine negativePhysical Exam:ED Triage Vitals [09/24/23 2204]Weight 83.9 kg (185 lb)Actual or estimated Estimated by patient/family reportHeight 1.778 m (5' 10")BP (!) 80/54Pulse 81Resp 15Temp 36.6 ?C (97.9 ?F)Temp source OralSpO2 93 %Measured onPhysical ExamVitals and nursing note reviewed.Constitutional:General: He is not in acute distress.Appearance: Normal appearance. He is well-developed and normal weight. He is not ill-appearing, toxic-appearing or diaphoretic.HENT:Head: Normocephalic and atraumatic.Right Ear: Tympanic membrane, ear canal and external ear normal.Left Ear: Tympanic membrane, ear canal and external ear normal.Nose: Nose normal. No congestion or rhinorrhea.Mouth/Throat:Mouth: Mucous membranes are dry.Pharynx: Oropharynx is clear. No oropharyngeal exudate or posterior oropharyngeal erythema.Eyes:General: No scleral icterus.Right eye: No discharge.Left eye: No discharge.Extraocular Movements: Extraocular movements intact.Conjunctiva/sclera: Conjunctivae normal.Pupils: Pupils are equal, round, and reactive to light.Neck:Vascular: No carotid bruit.Cardiovascular:Rate and Rhythm: Normal rate and regular rhythm.Pulses: Normal pulses.Heart sounds: Normal heart sounds. No murmur heard.Pulmonary:Effort: Pulmonary effort is normal. No respiratory distress.Breath sounds: Normal breath sounds. No stridor. No wheezing, rhonchi or rales.Chest:Chest wall: No tenderness.Abdominal:General: Bowel sounds are normal. There is no distension.Palpations: Abdomen is soft. There is no mass.Tenderness: There is no abdominal tenderness. There is no right CVA tenderness, left CVA tenderness, guarding or rebound.Musculoskeletal:General: No swelling, tenderness, deformity or signs of injury. Normal range of motion.Cervical back: Normal range of motion and neck supple. No rigidity or tenderness.Right lower leg: No edema.Left lower leg: No edema.Lymphadenopathy:Cervical: No cervical adenopathy.Skin:General: Skin is warm and dry.Capillary Refill: Capillary refill takes less than 2 seconds.Coloration: Skin is not jaundiced or pale.Findings: No bruising, erythema, lesion or rash.Neurological:General: No focal deficit present.Mental Status: He is alert and oriented to person, place, and time. Mental status is at baseline.Cranial Nerves: No cranial nerve deficit.Sensory: No sensory deficit.Motor: No weakness.Coordination: Coordination normal.Gait: Gait normal.Deep Tendon Reflexes: Reflexes normal.Psychiatric:Behavior: Behavior normal.Thought Content: Thought content normal.Judgment: Judgment normal.Radiology:CT HEAD WO CONTRASTPreliminary ResultEXAM: CT HEAD WO CONTRASTHISTORY: 67 years-old Male; Provided indication: Mental status change,unknown cause, Recurrent Falls, X3 today. Pt on Plavix .TECHNIQUE: Axial CT of the head was performed and reconstructed at 5 mmintervals. Coronal and sagittal reformatted images were generated.COMPARISON: NoneFINDINGS:The ventricles and cerebral sulci are normal in caliber and configuration.No midline shift or pathological extra-axial fluid collection is present.The basal cisterns are unremarkable.No acute intraparenchymal hemorrhage or significant mass effect isvisualized. No parenchymal attenuation abnormality is seen. The blair-whitematter differentiation is preserved.The mastoid air cells and paranasal air sinuses are clear. The calvariumand central skull base are unremarkable.IMPRESSIONNo acute intracranial abnormality.Preliminary Report Dictated by Resident: Autumn Lindsay Results:Lab ResultsCOMP. METABOLIC PANEL (65030) - AbnormalResult Value Ref RangeNA 137 135 - 145 mmol/LK 4.2 3.5 - 5.0 mmol/LCL 99 98 - 108 mmol/LCO2 TOTAL 26 23 - 31 mmol/LAGAP 12 2 - 16BUN 39 (*) 7 - 23 mg/dLGLUCOSE 184 (*) 70 - 110 mg/dLCREATININE 3.52 (*) 0.60 - 1.25 mg/dLTOTAL BILI 0.9 0.1 - 1.1 mg/dLCALCIUM 8.8 8.6 - 10.6 mg/Rosamaria PROTEIN 6.8 6.3 - 8.2 g/dLALBUMIN 4.1 3.5 - 5.0 g/dLALK PHOS 66 34 - 122 U/LALTv 21 5 - 50 U/LAST(SGOT) 36 13 - 40 U/LeGFR 18.1 mL/min/1.89a6PFUQNO ACID WHOLE BLOOD - AbnormalLACTIC ACID 3.15 (*) 0.50 - 2.20 mmol/LPOCT GLUCOSE (AUTOMATED) - AbnormalPOCT GLU 183 (*) 70 - 110 mg/dLCREATINE KINASE - NormalCK 95 33 - 194 U/LTROPONIN I - NormalTROPONIN I 0.005 <=0.034 ng/mLPOCT GLUCOSE(AGE >30DAYS) - NormalTHYROID STIMULATING HORMONE - NormalTSH 1.34 0.45 - 4.70 mIU/LCBC WITH DIFFWBC 8.07 4.20 - 10.70 10*3/?LRBC 4.66 4.26 - 5.52 10*6/?LHGB 13.5 12.2 - 16.4 g/dLHCT 41.4 38.4 - 49.3 %MCV 88.8 81.7 - 95.6 fLMCH 29.0 26.1 - 32.7 pgMCHC 32.6 31.2 - 35.0 g/dLRDW-SD 45.8 38.5 - 51.6 fLRDW-CV 14.1 12.1 - 15.4 %PLT 164 150 - 328 10*3/?LMPV 11.6 9.8 - 13.0 fLNRBC/100 WBC 0.0 0.0 - 10.0 /100 WBCsNRBC x10^3 <0.01 10*3/?LGRAN MAT (NEUT) % 69.7 %IMM GRAN % 0.40 %LYMPH % 18.3 %MONO % 9.9 %EOS % 1.2 %BASO % 0.5 %GRAN MAT x10^3(ANC) 5.62 1.99 - 6.95 10*3/uLIMM GRAN x10^3 0.03 0.00 - 0.06 10*3/uLLYMPH x10^3 1.48 1.09 - 3.23 10*3/uLMONO x10^3 0.80 0.36 - 1.02 10*3/uLEOS x10^3 0.10 0.06 - 0.53 10*3/uLBASO x10^3 0.04 0.01 - 0.09 10*3/uLURINALYSISOrders and Treatments:Orders Placed This EncounterProceduresCT HEAD WO CONTRASTUS RENAL WITH DOPPLERCbc with DiffComp. Metabolic Panel (59540)Creatine KinaseUrinalysisTroponin IPOCT GLUCOSE(AGE >30DAYS)Lactic Acid Whole BloodLactic Acid Whole BloodThyroid Stimulating HormonePOCT GLUCOSE (AUTOMATED)CBC with DifferentialBasic Metabolic Panel (NA, K, CL, CO2, GLUCOSE, BUN, CREATININE, CA)Magnesium SerumPhosphorus SerumLactic Acid Whole BloodN-TERMINAL PRO-BNPOrders Placed This EncounterMedicationsNaCl 0.9% (NS) IV infusion 1,000 mLNaCl 0.9% (NS) IV infusion 1,000 mLDISCONTD: NaCl 0.9% (NS) IV infusion 1,000 mLheparin (porcine) injection 5,000 Unitsacetaminophen (TYLENOL) tablet 650 mgHYDROcodone-acetaminophen (NORCO 5) 5-325 mg tablet 1 tabletmorpHINE (4 mg/mL) injection 4 mgondansetron (ZOFRAN (PF)) injection 4 mgFirst Provider Eval:ED EventsDate/Time Event User Rbdwdhwj59/04/242212 Medical Screening Begins EDVIN GUTIERREZ MD --09/24/232212 First Provider Evaluation EDVIN GUTIERREZ MD --AdmissionCareGuideline: Renal Failure (Acute) - INPT, InpatientBased on the indications selected for the patient, the bed status of Inpatient was determined to be METThe following indications were selected as present at the time of evaluation of the patient:- Clinical Indications for Admission to Inpatient Care- Admission is indicated for 1 or more of the following:- Within past 7 days, rise in serum creatinine to 3 times its baseline value or higherAdmissionCare documentation entered by: Edvin ChunCritical access hospital [place], 28th edition, Copyright ? 2023 [facility] [place] [facility] All Rights Reserved.6716-09-61T87:33:25-05:00ED COURSEDiagnosis/Impression as of 09/25/23 0043Recurrent falls while walkingHypotension, unspecified hypotension typeAKI (acute kidney injury)Lactic acidosisProcedures:EKG-12 Lead ROUTINE ONCEDate/Time: 09/25/2023 12:38 AMPerformed by: Edvin Gutierrez MDAuthorized by: Edvin Gutierrez MDECG interpreted by ED Physician in the absence of a kicking machine operator: noPrevious ECG:Previous ECG: Compared to currentSimilarity: No changeInterpretation:Interpretation: abnormalRate:ECG rate: 78ECG rate assessment: normalRhythm:Rhythm: sinus rhythmEctopy:Ectopy: noneQRS:QRS axis: NormalQRS intervals: NormalQRS conduction: normalT waves:T waves: normalQ waves:Abnormal Q-waves: presentQ waves: II, III and aVFMDM:Medical Decision MakingDaviannabella Wilfredo Lizarraga is a 67 year old male with numerous medical conditions as listed below who presents to the ED for evaluation of recurrent falls X 3 this eveningProblems Addressed:EDWARD (acute kidney injury): acute illness or injuryDetails: Most likely due to hypotensionHypotension, unspecified hypotension type: acute illness or injuryLactic acidosis: acute illness or injuryRecurrent falls while walking: acute illness or injuryDetails: Most likely due to HypotensionAmount and/or Complexity of Data ReviewedIndependent Historian: spouseExternal Data Reviewed: labs, ECG and notes.Labs: ordered. Decision-making details documented in ED Course.Radiology: ordered.ECG/medicine tests: ordered and independent interpretation performed. Decision-making details documented in ED Course.RiskPrescription drug management.Decision regarding hospitalization.Flowsheet Documentation:Scoring Tools:No data recordedDisposition/Condition:ED DispositionED DispositionAdmit - InpatientConditionStableComment--Disch arge Medications:Patient's MedicationsSTART taking these medicationsNo medications on fileCONTINUE taking these medications which have NOT CHANGEDALPRAZOLAM 0.5 MG TABLET Take 0.5 tablets by mouth every morning, THEN 0.5 tablets every other day.AMLODIPINE 5 MG TABLET Take 1 tablet by mouth in the morning.ARMOUR THYROID 120 MG TABLET TAKE ONE (1) TABLET(S) BY MOUTH ONCE A DAY IN THE MORNING.ASPIRIN 81 MG EC TABLET Take 1 tablet by mouth daily.CLOPIDOGREL 75 MG TABLET Take 1 tablet by mouth daily.FARXIGA 5 MG TABLET Take 1 tablet by mouth in the morning.HYDROCODONE-ACETAMINOPHEN 5-325 MG TABLET Take 1 tablet by mouth every 6 (six) hours as needed.LISDEXAMFETAMINE 70 MG CAPSULE Take 1 capsule by mouth in the morning.LISINOPRIL 20 MG TABLET Take 1 tablet by mouth daily.METFORMIN 500 MG TABLET Take 2 tablets by mouth in the morning and 2 tablets in the evening. Take with meals.MULTIVITAMIN ORAL Take 1 tablet by mouth in the morning.NEBIVOLOL 10 MG TABLET Take 1 tablet by mouth in the morning.PREGABALIN 75 MG CAPSULE TAKE ONE (1) CAPSULE(S) BY MOUTH TWICE A DAY.ROSUVASTATIN 10 MG TABLET Take 1 tablet by mouth at bedtime.SEMAGLUTIDE (OZEMPIC) 1 MG/DOSE (4 MG/3 ML) PNIJ INJECT 1MG UNDER THE SKIN ONCE WEEKLY.SILDENAFIL 100 MG TABLET TAKE 0.5-1 TABLET(S) BY MOUTH 1 HOUR PRIOR TO SEX.TAMSULOSIN 0.4 MG 24 HR CAPSULE Take 1 capsule by mouth in the morning.START taking Modified Medications as PrescribedNo medications on fileSTOP taking these medicationsNo medications on fileFollow-up:Electronically signed by:Edvin Gutierrez MD09/25/23 0043 26290-9[facility] Emergency department HbnuGY6391-55-49N64:43:09Physician Emergency department NoteTXT1.2.840.094696.1.13.104.2.7.2.7 32590|[id number] for patient xcth90212-9Udvgtdrbd department NoteLNNARRATIVEFormatted C-CDA narrative text[address] Og[id number] BMHYKAEGHVUMFQWQJTFG8546-78-61G82:43:0 91.2.840.733535.1.72.3.15|1.2.840.1143 50.1.13.104.2.7.2.727879_[id number] [facility] 2023-09-24 22:00:00 2453-66-78R64:00:00 AdmissionCareGuideline: Renal Failure (Acute) - INPT, InpatientBased on the indications selected for the patient, the bed status of Inpatient was determined to be METThe following indications were selected as present at the time of evaluation of the patient:- Clinical Indications for Admission to Inpatient Care- Admission is indicated for 1 or more of the following:- Within past 7 days, rise in serum creatinine to 3 times its baseline value or higherAdmissionCare documentation entered by: Edvin Pereyra [facility] [place]us, 28th edition, Copyright ? 2023 [facility] [place] [employer] [facility] All Rights Reserved.1837-98-90J91:33:25-05:00Elec tronically signed by Edvin Gutierrez MD at 09/25/2023 12:33 AM [id number] Admission Criteria1.2.840.842216.1.13.104.2.7.4. 907738.79370880-54-51R87:33:25EC Admission CriteriaTXT1.2.840.046651.1.13.104.2.7 .2.698067|[id number] for patient tegs54627-0ClmoPLLDTRBNIYZQrtcmavhn C-CDA narrative text[id number] ZNTNNFKVTUTRRUYEKIIE3781-09-84D38:33:2 51.2.840.727087.1.72.3.15|1.2.840.1143 50.1.13.104.2.7.2.727879_[id number] [facility] 2023-04-07 08:38:29 7183-12-26E41:38:29 How long has he been taking the 1 mg dose?[place] [address]-7Kyvqmrgry encounter DbtmXL0366-66-19M22:38:39Telephone encounter NoteTXT1.2.840.960008.1.13.104.2.7.2.7 76725|[id number] for patient lukk86989-6GeskFBNNMGBOJRABxxdectbu C-CDA narrative [id number] EUUDALDEDAYAINFVPGOD9758-81-33M05:38:3 91.2.840.989066.1.72.3.15|1.2.840.1143 50.1.13.104.2.7.2.727879_[id number] [facility] 2021-03-24 12:17:00 /h2bPVm3E6MjdWSsyZXSLPJbjOZ0bCYlF5rccf SUANf4+aC624031OURJjD+GrQ65663-65-41U5 2:17:00 [facility] [address] [place] [address] Orthopedics Operative Note Signed Patient: Navin Lizarraga Sr. Medical Record#: [id number] : 1955 Acct:[id number] Age/Sex: 65 / M ADM Date: 03/24/21 Loc: [facility] Room: Report Number: [id number]: Jaciel Suh MD Orthopedic Operative Note Date of Procedure: 03/24/21 ( ) Detailed Description of Procedure: Pre Op Diagnosis: Right thumb table saw wound defect S61.101D Right thumb open fracture with defect distal phalanx S62.521B Right index finger table saw wound defect S61.300D Right index finger distal phalanx open fracture with large bone defect S62.630B Post Op Diagnosis:Right thumb table saw wound defect S61.101D Right thumb open fracture with defect distal phalanx S62.521B Right index finger table saw wound defect S61.300D Right index finger distal phalanx open fracture with large bone defect S62.630B Procedure: Right index finger debridement of open fracture bone defect distal phalanx 77668 Right index finger transposition flap to reconstruct wound defect 71039 Right index finger repair of nail matrix 34090 Right thumb debridement of open fracture distal phalanx and wound defect 03660 Right thumb transposition flap to reconstruct wound defect 17226 Surgeon: Jaciel Suh MD Anesthesia: General, see anesthetic record for details of method EBL: < 50 cc, none replaced Complications: none Specimens: none Implants: none Procedure details / Findings: Both wounds were typical table saw wounds heavily contaminated with multiple particle matter devitalized shredded wound borders and true wound in bone defects were three-dimensional tissue volume is been destroyed obliterated by the nature of the table saw injury. On the index finger the wound arches in oblique trajectory starting ulnarly on its proximal extentsdorsal and volar and arcing radially over the hypopneic him in tip of the digit to then turned back ulnarly once again it is in the opposing plane on the thumb and involves the nail matrix on the index finger but does not involve the nail matrix on the thumb. The width of the missing tissue defect on the index finger wound is approximately 12-13 mm wide going from the root of the matrix dorsally to proximal to the DIP flexion crease ulnarly and volarly on the thumb it is approximately 8-9 mm wide and crosses more than nick circumferentially around the oblique surface of the volar digit. On both digits the ischemic devitalized tattered borders and particle contaminations were all cut away with sharp 15. Blades continuing down to the level of the bone defects where loose bitsof bone were scraped out with a sharp edge of the curette and particle matter imbedded within bone tissue was scraped out with a sharp edge of the curette repeatedly until all particle matter imbedded in both soft and hard parts of the wound has been completely removed index and thumb and all tissue surfaces have been repeatedly gone over by sharp instruments knife for the soft tissues curette for the bone and then both wounds were scrubbed out repeatedly with multiple rounds of sterile saline sponges. On the index finger there is no clinical reason to amputate him down to thebase of the digit at this point because he deserves the opportunity to see whether not the scar formation within the wound bed blending in with the comminuted remaining bits of bone compensating for the wound defect will give him a sufficient functional pattern with the index finger that he finds more satisfying to keep the digit at nearly a full length as opposed to being amputated proximal to the nail at the metaphyseal base which is the level he would have to go to in order to have a truly stable Foundation for pinch but that would represent a greater than 1 cm shortening of the digit and dramatically change his function with absolute certainty where as he may retain additional functions by keeping longer digit and he deserves the opportunity to answer that questionfor himself he can always bone is way into a shortening amputation later if that ends up being his preference loose bits of bone that simply plucked out of the wound or a with 1 strand of tissue but not perfused were taken away anything that has perfusion and can become part of the scar mass is retained the most notable piece is a dorsal mid diaphyseal cortical fragment biased towards the ulnar side that is free-floating we examined whether this piece can receive a pin to help align it with metaphysis and it is not substantial enough to be pinned we did evaluate that particularly whentaking x-ray saying that the piece wants to naturally drift a little bit dorsal angulation this was dealt with at the end of the case by dorsally based splint with an arch form to push in a volar direction and resist any further drift of that diaphyseal fragment in a dorsal direction but it is insufficient to able to the direction of transposition to reconstruct for the wound defect three-dimensional volume loss goes in opposite directions on the 2 digits on the thumb the flap transpose is using the distal tissue from dorsal ulnar to volar radial where as on the index it transpose is from volar radial to dorsal ulnar. Nevertheless by transposing we compensate for the three-dimensional defect and achieve dermis to dermis reconstruction closures with 5 0 chromic on index finger and 5 0 nylon for greater tension thumb because thumb bony defect was a trough within the bone cut by the blade but keeping full length therefore there is less pliability to shift our transposition flap on the thumb thus the different suture material that can withstand greater tension. Because the wound defect passes obliquely through the matrix there is also a full length matrix repair to perform which was done with 6 0 chromic on the index finger when finished radiographs were taken dorsal to volar resistance splint was incorporated into the non constrictive but fully covering dressing. DISPOSITION: Patient discharged to home. Patient's status is stable. Patient has been given Hand andist [facility] 10-page instructional packet and a follow-up appointment. Patient instructed to call the practice number on front of packet for any questions including date and time of next encounter. Dr. Suh has directly prescribed to patient all outpatient medications, none to be dispensed by [facility]. The specific instruction at time of hospital discharge for any medications notdirectly prescribed for patient by Dr. Suh is that patient MUST receive all directives to either take or not take those medications from the practitioner who has originally prescribed those medications after having evaluated and diagnosed the related medical condition(s) non hand surgeryconditions that Dr. Suh does not evaluate or treat and thus CANNOT state to either take or not take those medications. Note that the preceding text indeed includes standardized language that accurately describes my personal methods of performing this procedure and is used for quality control checker reproducibly on eachcase including that of this individual patient with any variances or unusual findings specifically noted. Signature authenticates the date, patient, surgeon, diagnoses and procedure but not the main body text where the quality of the voice recognition software product chosen for use is prone to substantial error. Dictated By: Jaciel Suh MD Dictated By: Signed By: Jaciel Suh MD 03/24/21 1335 DD/ 1217 TD/TT: 03/24/21 121 Chip Frier: SARATH cc: SARATH; [id number]* Jaciel Suh MD; Sloan Spann MD P.OPOPOrthopedic Operative TupgFXQGZ25MygbsWarren SimpsonDmtuIfjeyYegrQ3705-99-03L81:17:00P.OPO PAVAvailable for patient fwswCAHJSHuXLRLh7539-99-78J50:35:57 [facility] 2021-03-24 12:14:00 F1uzimw/fFGyJrJCkdwIvMwZe9nKNsBOeNrQB0 dfi1WVtS/R41vf2Dx8B/Zy0Z6i4660-04-64G2 2:14:00 [facility] [address] [place] [address] Orthopedic History Physical Signed Patient: Navin Lizarraga Sr. Medical Record#: [id number] : 1955 Acct:[id number] Age/Sex: 65 / M Admit/Reg Date: 03/24/21 Loc: [facility] Room: Report Number: [id number] Attending Dr: Jaciel Suh MD Surgical HPI Date of Encounter: 03/24/21 Chief complaint HPI: Right thumb and index table saw mutilation Allergies/Adverse Reactions: No Known Drug Allergies Allergy (Verified 03/24/21 12:13) Family/Social History Smoking Status: Never smoker Exam Narrative: Large oblique tissue defects crossing the distal aspects of right thumb and index wrapping from dorsally through the matrix over the hypopneic him and pulp down to the distal flexion creases of IPand DIP joints and beyond patient is able demonstrate 30 of active flexion extension of the IP joint of the thumb 10 of the DIP joint of the index finger. Surgical Results Other Results: 03/24/21 12:15 Outside films show only limited involvement of the bone on the thumb but complete destruction of allthe distal bone stock in the index finger the only reasonable bone stock that remains is the metaphyseal base. Surgical A P (1) Displaced fracture of distal phalanx of right index finger, initial encounter for open fracture Status: Acute Assessment and Plan: Reviewed the case thoroughly with patient and his family explaining the high contamination level of table saw injuries in the high infection risk and will put him on antibiotics following a very thorough debridement. Explained all so the understanding of three-dimensional tissue loss that comes a table saw injuries as is objectively demonstrated by external exam of the wounds and by the radiographs that show such dramatic bone loss in the index finger but thankfully not the thumb. Patient understands that he will have for ever altered pinching characteristics on the index finger including both a shorter digit and a different profile against which to make contact based on the tissue that has been irreparably lost by the destruction of the table saw. - Attestation Attestation: I have reviewed and updated the patient's past medical, social, and family history as necessary and have reviewed pertinent laboratory findings. Confirm PMH/FSH Attestation: Yes Problem List Attestation Statement: I have documented a relevant problem and problem plan for this visit. Attending Confirm Problem: Yes Attending Problem List Check: Pass Surgical Quality VTE Risk Level: Low - Patient Rights Does Pt Have an Advance Directive for End of Life Issues?: No Does Patient Have a Health Care Proxy?: No Dictated By: Jaciel Suh MD Signed By: Jaciel Suh MD 03/24/21 1217 DD/ 1214 TD/TT: 03/24/21 1214 Chip Frier: SARATH cc: SARATH; [id number]* Jaciel Suh MD; Sloan Spann MD P.HPOPOrthopedic History \\T\\ XhaidcsrUMRFS42OumboCameron BaileyUytlSkgwlIjbwJ8928-81-25K98:14:00P.HPO PAVAvailable for patient pilnKBVRSBtMHEXx7465-70-16G19:18:07 [facility]
[2023-10-06 14:21] LABS: Absolute Eosinophils 0.1 K/uL (0-0.5); Absolute Lymphocytes (CBC) 1.1 K/uL (0.7-4.9); Absolute Monocytes 0.6 K/uL (0.1-1.3); Absolute Neutrophil 4.6 K/uL (1.8-8.0); Basophils % 0.6 % (0-1.3); Eosinophils % 1.1 % (0-4.4); Hematocrit 39.8 % (39.6-49.0); Hemoglobin 13.1 g/dL (13.6-17.9); Lymphocytes % 17.4 % (15.3-44.8); MCH 28.4 pg (27.0-35.0); MCHC 32.9 g/dL (32.0-36.0); MCV 86.1 fL (80-100); MPV 9.8 fL (7.6-11.3); Monocytes % 10.1 % (3.3-12.3); Neutrophils % 70.8 % (41.7-73.7); Platelets 150 thou/uL (152-406); RBC Red Blood Cell Count 4.62 M/uL (4.33-5.43); Red Cell Distribution Width 14.6 % (12.1-15.2)
[2023-10-06 14:39] LABS: Anion Gap 10.7 mEq/L (5.0-15.0); Magnesium 2.3 mg/dL (1.6-2.4); Potassium 4.7 mEq/L (3.5-5.1); Troponin High Sensitivity 5.2 pg/mL (<58.9)
[2023-10-06] MEDS ORDERED: NA CHLORIDE 0.9% 1,000 ML ONE (14:58)
--- NOTE | 2023-10-06 15:07 | RAD REPORT ---
EXAM DESCRIPTION: Fredrick Single View10/06/2023 2:15 pm CLINICAL HISTORY: Dizziness and malaise COMPARISON: none FINDINGS: The lungs appear clear of acute infiltrate. The heart is normal size IMPRESSION: No acute abnormalities displayed
--- NOTE | 2023-10-06 15:36 | ER ---
Nurse's Notes [facility] Name: Kee Sims Age: 67 yrs Sex: Male : 1955 Arrival Date: 10/06/2023 Time: 13:50 Bed 8 Private MD: Diagnosis: Hypotension, unspecified;Heat exhaustion, unspecified;Acute Kidney Injury Presentation: 10/05 13:52 Chief complaint: EMS states: LIGHT HEADED AND MALAISE AT WORK. Coronavirus screen: At bp this time, the client does not indicate any symptoms associated with coronavirus-19. Ebola Screen: No symptoms or risks identified at this time. Initial Sepsis Screen: Does the patient meet any 2 criteria? No. Patient's initial sepsis screen is negative. Does the patient have a suspected source of infection? No. Patient's initial sepsis screen is negative. Risk Assessment: Do you want to hurt yourself or someone else? Patient reports no desire to harm self or others. Onset of symptoms was October 06, 2023 at 13:00. Care prior to arrival: Medication(s) given: Normal saline infusion, 1000 mL, IV initiated. 18 GA, in the left antecubital area, Glucose check: 156. 13:52 Method Of Arrival: EMS: [facility] bp 13:52 Acuity: GUSTAVO 3 bp Triage Assessment: 13:54 General: Appears in no apparent distress. Behavior is calm, cooperative, appropriate bp for age. Pain: Denies pain. Neuro: Level of Consciousness is awake, alert, obeys commands, Oriented to Appropriate for age Reports NEAR SYNCOPE. Historical: - Allergies: 13:54 No Known Allergies; bp - Home Meds: 13:54 amlodipine oral [Active]; Bystolic oral [Active]; clopidogrel oral [Active]; duloxetine bp oral [Active]; gabapentin oral [Active]; Lisinopril Oral [Active]; Metformin Oral [Active]; Ozempic subcutaneous [Active]; rosuvastatin oral [Active]; Synthroid Oral [Active]; tamsulosin 0.4 mg oral capsule [Active]; Vyvanse oral [Active]; - PMHx: 13:54 Hypertensive disorder; Hypercholesterolemia; ACUTE KIDNEY INJURY; Diabetes mellitus; bp - PSHx: 13:54 CARDIAC STENT; bp - Immunization history:: Adult Immunizations up to date. - Infectious Disease History:: Denies. - Social history:: Smoking status: Patient denies any tobacco usage or history of. Screenin:22 [facility] ED Fall Risk Assessment (Adult) History of falling in the last 3 months, ph including since admission No falls in past 3 months (0 pts) Confusion or Disorientation No (0 pts) Intoxicated or Sedated No (0 pts) Impaired Gait No (0 pts) Mobility Assist Device Used No (0 pt) Altered Elimination No (0 pt) Score/Fall Risk Level 0 - 2 = Low Risk Oriented to surroundings, Maintained a safe environment, Hourly rounding (assess needs \T\ fall precautionary measures) done. Abuse screen: Denies threats or abuse. Denies injuries from another. Nutritional screening: No deficits noted. Tuberculosis screening: No symptoms or risk factors identified. Assessment: 14:23 General: Appears in no apparent distress. comfortable, well groomed, Behavior is calm, ph cooperative, appropriate for age. Pain: Denies pain. Neuro: Level of Consciousness is awake, alert, obeys commands, Oriented to person, place, time, situation, Reports dizziness. Cardiovascular: Reports fatigue, lightheadedness, Capillary refill < 3 seconds in bilateral fingers Patient's skin is warm and dry. Derm: Skin is pink, warm \T\ dry. Musculoskeletal: Circulation, motion, and sensation intact. Range of motion: intact in all extremities. Vital Signs: 13:52 BP 70 / 50; Pulse 80; Resp 16; Temp 98; Pulse Ox 97% ; bp 14:21 BP 96 / 62; Pulse 79; Resp 18; Pulse Ox 97% ; ph 15:10 BP 101 / 65; Pulse 62; Resp 18; Pulse Ox 95% on R/A; ph 16:02 BP 102 / 65; Pulse 66; Resp 18; Pulse Ox 95% on R/A; ph 17:00 BP 108 / 68; Pulse 67; Resp 16; Temp 97.9; Pulse Ox 97% on R/A; ph ED Course: 13:52 Patient arrived in ED. bp 13:52 Elio Harrison DO is Attending Physician. ms3 13:54 Triage completed. bp 13:54 Arm band placed on. bp 14:01 Maintain EMS IV. Dressing intact. Good blood return noted. Site clean \T\ dry. Gauge \T\ bp site: 18 GA LEFT AC. 14:01 Initial lab(s) drawn, by me, sent to lab. EKG done, by ED staff, reviewed by Elio Harrison DO. 14:05 Yazmin Berrios, RN is Primary Nurse. ph 14:17 XRAY Chest (1 view) In Process Unspecified. EDMS 14:22 Patient has correct armband on for positive identification. Bed in low position. Call ph light in reach. Side rails up X2. Client placed on continuous cardiac and pulse oximetry monitoring. NIBP monitoring applied. hall monitor on. Door closed. Noise minimized. 15:33 Brian Kumar MD is Hospitalizing Provider. ms3 16:03 No provider procedures requiring assistance completed. Patient admitted, IV remains in ph place. 16:15 Head Brain Wo Cont CT In Process Unspecified. EDMS Administered Medications: 15:10 Drug: NS 0.9% IV 1000 ml IV at 1 bolus Per protocol; 1000 mL bolus Route: IV; Rate: 1 ph bolus; Site: left antecubital; 16:10 Follow up: Response: No adverse reaction; IV Status: Completed infusion; IV Intake: ph 1000ml 16:24 Drug: NS 0.9% IV 1000 ml IV at 1000 ml once Route: IV; Rate: 1000 ml; Site: left ph antecubital; 17:45 Follow up: Response: No adverse reaction; IV Status: Completed infusion; IV Intake: ph 1000ml 16:24 Drug: NS 0.9% IV 1000 ml IV at 125 ml/hr continuous Route: IV; Rate: 125 ml/hr; Site: left antecubital; 16:24 Follow up: Response: No adverse reaction; IV Status: Infusion continued upon admission ph 17:00 Follow up: Response: No adverse reaction; IV Status: Infusion continued upon admission ph Medication: 14:22 VIS not applicable for this client. ph Intake: 16:10 IV: 1000ml; Total: 1000ml. ph 17:45 IV: 1000ml; Total: 2000ml. ph Outcome: 15:35 Decision to Hospitalize by Provider. ms3 18:18 Patient left the ED. ph Signatures: Dispatcher [employer] EDMS Yazmin Berrios RN RN ph Peltier, Brian, RN RN bp Sims, Marcus, DO DO ms3
--- NOTE | 2023-10-06 15:36 | EDPHYS ---
Physician Documentation [facility] Name: Kee Sims Age: 67 yrs Sex: Male : 1955 Arrival Date: 10/06/2023 Time: 13:50 Bed 8 Private MD: ED Physician Elio Harrison HPI: 10/05 13:54 This 67 yrs old Male presents to ER via EMS with complaints of MALAISE. ms3 13:54 68-year-old male presents to the emergency department via [facility] for not feeling ms3 well while working in appointment. Plan to EMS was called and patient's blood pressure was found to be 60/40 with a heart rate of 40. [facility] arrived on scene and patient's blood pressure was 70/50 with a heart rate of 80. Patient was recently admitted to [facility] for dehydration and acute kidney injury. Patient notes he did trip over a gate prior to this occurring and landing on his left arm. Patient denies shortness of breath or chest pain. Historical: - Allergies: 13:54 No Known Allergies; bp - Home Meds: 13:54 amlodipine oral [Active]; Bystolic oral [Active]; clopidogrel oral [Active]; duloxetine bp oral [Active]; gabapentin oral [Active]; Lisinopril Oral [Active]; Metformin Oral [Active]; Ozempic subcutaneous [Active]; rosuvastatin oral [Active]; Synthroid Oral [Active]; tamsulosin 0.4 mg oral capsule [Active]; Vyvanse oral [Active]; - PMHx: 13:54 Hypertensive disorder; Hypercholesterolemia; ACUTE KIDNEY INJURY; Diabetes mellitus; bp - PSHx: 13:54 CARDIAC STENT; bp - Immunization history:: Adult Immunizations up to date. - Infectious Disease History:: Denies. - Social history:: Smoking status: Patient denies any tobacco usage or history of. ROS: 13:54 Cardiovascular: Negative for chest pain, and palpitations. Respiratory: Negative for ms3 shortness of breath, cough, wheezing, and pleuritic chest pain, Abdomen/GI: Negative for abdominal pain, nausea, vomiting, diarrhea, and constipation, MS/Extremity: Negative for injury and deformity, Skin: Negative for injury, rash, and discoloration, 13:54 Constitutional: Positive for fatigue, Exam: 13:54 Constitutional: This is a well developed, well nourished patient who is awake, alert, ms3 and in no acute distress. Head/Face: Normocephalic, atraumatic. Chest/axilla: Normal chest wall appearance and motion. Nontender with no deformity. Cardiovascular: Regular rate and rhythm with a normal S1 and S2. No gallops, murmurs, or rubs. Normal PMI, no JVD. No pulse deficits. Respiratory: Lungs have equal breath sounds bilaterally, clear to auscultation and percussion. No rales, rhonchi or wheezes noted. No increased work of breathing, no retractions or nasal flaring. Abdomen/GI: Soft, non-tender, with normal bowel sounds. No distension or tympany. No guarding or rebound. No evidence of tenderness throughout. Skin: Warm, dry with normal turgor. Normal color with no rashes, no lesions, and no evidence of cellulitis. MS/ Extremity: Pulses equal, no cyanosis. Neurovascular intact. Full, normal range of motion. 15:33 ECG was reviewed by the Attending Physician. ms3 Vital Signs: 13:52 BP 70 / 50; Pulse 80; Resp 16; Temp 98; Pulse Ox 97% ; bp 14:21 BP 96 / 62; Pulse 79; Resp 18; Pulse Ox 97% ; ph 15:10 BP 101 / 65; Pulse 62; Resp 18; Pulse Ox 95% on R/A; ph 16:02 BP 102 / 65; Pulse 66; Resp 18; Pulse Ox 95% on R/A; ph 17:00 BP 108 / 68; Pulse 67; Resp 16; Temp 97.9; Pulse Ox 97% on R/A; ph MDM: 13:52 Patient medically screened. ms3 13:54 Differential Diagnosis Acute kidney injury versus dehydration versus hyperkalemia. ms3 20:42 Data reviewed: vital signs, nurses notes, lab test result(s), radiologic studies, and ms3 as a result, I will admit patient. Consideration of Admission/Observation Patient was admitted/placed on observation. Management of patient was discussed with the following: Hospitalist: . I considered the following discharge prescriptions or medication management in the emergency department Medications were administered in the Emergency Department. See MAR. Independent interpretation of the following test(s) in the Emergency Department EKG: See my EKG interpretation above X-Ray: My interpretation is CXR image reviewed does not reveal pneumonia. Historians other than the Patient: EMS: [facility]. Counseling: I had a detailed discussion with the patient and/or guardian regarding the historical points, exam findings, and any diagnostic results supporting the discharge/admit diagnosis, lab results, radiology results, the need for further work-up and treatment in the hospital. ED course: Discussed labs, CXR with patient. Patient understands/ agrees with plan. All questions answered. . 10/05 13:54 Order name: Basic Metabolic Panel; Complete Time: 14:44 ms3 10/05 13:54 Order name: CBC with Diff; Complete Time: 14:44 ms3 10/05 13:54 Order name: Magnesium; Complete Time: 14:44 ms3 10/05 13:54 Order name: Troponin HS; Complete Time: 14:44 ms3 10/05 15:29 Order name: CK; Complete Time: 16:14 ms3 10/05 16:12 Order name: Glucose, Ancillary Testing; Complete Time: 16:14 EDMS 10/05 13:54 Order name: XRAY Chest (1 view); Complete Time: 15:12 ms3 10/05 15:52 Order name: Head Brain Wo Cont CT; Complete Time: 16:38 la1 10/05 13:54 Order name: Cardiac monitoring; Complete Time: 14:02 ms3 10/05 13:54 Order name: EKG - Nurse/Tech; Complete Time: 14:21 ms3 10/05 13:54 Order name: IV Saline Lock; Complete Time: 14:02 ms3 10/05 13:54 Order name: Labs collected and sent; Complete Time: 14:13 ms3 10/05 13:54 Order name: O2 Per Protocol; Complete Time: 14:02 ms3 10/05 13:54 Order name: O2 Sat Monitoring; Complete Time: 14:02 ms3 10/05 15:52 Order name: Accucheck; Complete Time: 16:02 la1 EC:33 Rate is 77 beats/min. Rhythm is regular. QRS [place] is Normal. OR interval is normal. QRS ms3 interval is normal. Clinical impression: NSR w/ Non-specific ST/T Changes. Interpreted by me. Reviewed by me. Administered Medications: 15:10 Drug: NS 0.9% IV 1000 ml IV at 1 bolus Per protocol; 1000 mL bolus Route: IV; Rate: 1 ph bolus; Site: left antecubital; 16:10 Follow up: Response: No adverse reaction; IV Status: Completed infusion; IV Intake: ph 1000ml 16:24 Drug: NS 0.9% IV 1000 ml IV at 1000 ml once Route: IV; Rate: 1000 ml; Site: left ph antecubital; 17:45 Follow up: Response: No adverse reaction; IV Status: Completed infusion; IV Intake: ph 1000ml 16:24 Drug: NS 0.9% IV 1000 ml IV at 125 ml/hr continuous Route: IV; Rate: 125 ml/hr; Site: ph left antecubital; 16:24 Follow up: Response: No adverse reaction; IV Status: Infusion continued upon admission ph 17:00 Follow up: Response: No adverse reaction; IV Status: Infusion continued upon admission ph Disposition Summary: 10/06/23 15:35 Hospitalization Ordered Notes: Hospitalization Status: Inpatient Admission ms3 Provider: Brian Kumar ms3 Location: Telemetry/[facility] (Inpatient) ms3 Condition: Stable ms3 Problem: new ms3 Symptoms: are unchanged ms3 Bed/Room Type: Standard ms3 Room Assignment: 203(10/06/23 16:55) eb Diagnosis - Hypotension, unspecified ms3 - Heat exhaustion, unspecified ms3 - Acute Kidney Injury ms3 Forms: - Medication Reconciliation Form ms3 - SBAR form ms3 - Leadership Thank You Letter ms3 Signatures: Dispatcher [employer] EDMS Adalid Dickey FNP-C CHEMICAL PROCESSING SUPERVISOR-ClaYazmin Alfaro RN RN Steven Ortiz RN RN bp Botello, Elizabeth eb Elio Harrison DO DO ms3 Corrections: (The following items were deleted from the chart) 13:54 13:54 BASIC METABOLIC PANEL+C.LAB.BRZ ordered. EDMS EDMS 13:54 13:54 CBC+H.LAB.BRZ ordered. EDMS EDMS 13:54 13:54 MAGNESIUM+C.LAB.BRZ ordered. EDMS EDMS 13:54 13:54 Troponin High Sensitivity+C.LAB.BRZ ordered. EDMS EDMS 13:54 13:54 Chest Single View+RAD.RAD.BRZ ordered. EDMS EDMS 15:29 15:29 CREATINE PHOSPHOKINASE+C.LAB.BRZ ordered. EDMS EDMS 15:52 15:52 Head Brain Wo Cont+CT.RAD.BRZ ordered. EDMS EDMS 16: 15:35 ms3 eb 16:50 16:25 202 eb eb 16:55 16:50 eb eb
[2023-10-06] MEDS ORDERED: NA CHLORIDE 0.9% 2,000 ML ONE (15:58)
--- NOTE | 2023-10-06 16:33 | RAD REPORT ---
EXAM DESCRIPTION: CT - Head Brain Wo Cont - 10/06/2023 4:13 pm CLINICAL HISTORY: Alteration of awareness/confusion dizziness COMPARISON: none TECHNIQUE: Computed axial tomography of the head was obtained. IV contrast was not requested. All CT scans are performed using dose optimization technique as appropriate and may include automated exposure control or mA/KV adjustment according to patient size. FINDINGS: An intracranial bleed is not seen The ventricles are normal in caliber No significant hypodense areas within the brain visualized No extra-axial fluid collection is noted. Fluid within the sinuses/ mastoids is not seen IMPRESSION: No acute intracranial abnormality is seen If patient's symptoms persist MRI of the brain would be recommended
--- NOTE | 2023-10-06 17:34 | P.HP ---
Certification for Inpatient Patient admitted to: Inpatient With expected LOS: >2 Midnights Patient will require the following post-hospital care: None Practitioner: I am a practitioner with admitting privileges, knowledge of patient current condition, hospital course, and medical plan of care. Services: Services provided to patient in accordance with Admission requirements found in Title 42 Section 412.3 of the Code of Federal Regulations Patient History Date of Service: 10/06/23 Reason for admission: EDWARD History of Present Illness: 67-year-old male with history of lrs-vnajbal-iarfglxtx diabetes, hypertension, hyperlipidemia presents emergency department for fatigue, hypertension. He had been working out in the hot sun and became very tired, upon arrival to the emergency department his blood pressure was 70/50. He reports he had a recent admission at [facility] September 23 through September 25 for acute kidney injury. We were able to review records from them and his creatinine on admission was 3.5 and trended down to 1.05 at discharge. During his admission at [facility] he had an echocardiogram which was normal as well as renal ultrasound. He was treated with IV fluids and his creatinine improved he was discharged. He reports he drank about 3 bottles of water today, he is quite drowsy on evaluation. CT scan of his head was done which was negative for acute findings today. His initial creatinine here is 2.81 with a GFR of 24 glucose of 149 chest x-ray was negative for acute findings. ED provider wishes to the patient for acute kidney injury, hypotension. - Past Medical/Surgical History -: Oct-uxnlcgm-hibwziooo [place]ies -: Hypertension -: Hyperlipidemia Past Surgical History: Unable to obtain Psychosocial/ Personal History: Lives at home alone - Family History Family History: Reviewed- Non-Contributory - Social History Smoking Status: Never smoker Alcohol use: No CD- Drugs: No Caffeine use: Yes Place of Residence: Home Review of Systems 10-point ROS is otherwise unremarkable General: Weakness, Malaise Physical Examination - Physical Exam General: Alert, In no apparent distress, Oriented x3 HEENT: Atraumatic, PERRLA, Mucous membr. moist/pink Neck: Supple, 2+ carotid pulse no bruit, No LAD Respiratory: Clear to auscultation bilaterally, Normal air movement Cardiovascular: Regular rate/rhythm, Normal S1 S2 Gastrointestinal: Normal bowel sounds, No tenderness Musculoskeletal: No tenderness Integumentary: No rashes Neurological: Normal speech, Normal strength at 5/5 x4 extr, Normal tone, Normal affect - Studies Laboratory Data (last 24 hrs) 10/06/23 10/06/23 14:12 14:12 WBC 6.40 Hgb 13.1 L Hct 39.8 Plt Count 150 L Sodium 135 L Potassium 4.7 BUN 65 H Creatinine 2.81 H Glucose 149 H Magnesium 2.3 Assessment and Plan - Plan Assessment: Acute kidney injury Hypotension Diabetes mellitus type [id number]-olubeyv-hqlemugdm History of hypertension Hyperlipidemia Plan: Acute kidney injury Hypotension Suspect this is related to heat exhaustion, dehydration And recent admission to ED being within September 23 through September 25-initial creatinine 3.5 down to 1.0 discharge Had recent echocardiogram, renal ultrasound that were normal at [facility] Continue IV fluids, nephrology consultation in place Recheck chemistries in the morning Monitor blood pressure to determine if he is still needing to take his blood pressure medications outpatient Encourage adequate hydration Diabetes mellitus type 0lqx-cpfdvus-tbcaceoqw ACHS Accu-Chek, sign scale insulin History of hypertension Blood pressure soft at this time, hold oral antihypertensive agents Hyperlipidemia Continue statin DVT PPX: Heparin subcu Code status: Full Discharge Plan: Home Plan to discharge in: 48 Hours - Advance Directives Does patient have a Living Will: No Does patient have a Durable POA for Healthcare: No - Code Status/Comfort Care Code Status Assessed: Yes (Full code) Critical Care: No Time Spent Managing Pts Care (In Minutes): 70
[2023-10-06] MEDS ORDERED: ACETAMINOPHEN 325 MG TABLET PO PRN (18:46)
[2023-10-06 19:02] VITALS: BMI 25.1
--- NOTE | 2023-10-06 19:47 | RAD REPORT ---
EXAM DESCRIPTION: US - Renal Ultrasound-Complete - 10/06/2023 7:35 pm CLINICAL HISTORY: Acute renal insufficiency COMPARISON: None FINDINGS: The right kidney measures 11 cm with a normal echotexture. The left kidney measures 11 cm with a normal echotexture. Hydronephrosis is not seen. No gross abnormality of bladder IMPRESSION: Unremarkable renal ultrasound.
[2023-10-06] MEDS: NA CHLORIDE 0.9% 1,000 ML IV SCH (19:50)
[2023-10-06] MEDS ORDERED: HYDROCODONE/APAP 5/325 MG TAB PO PRN (20:55)
[2023-10-06] MEDS: INSULIN REGULAR (HUMAN) 100 UNIT/ML SQ SCH (21:00)
[2023-10-06] MEDS: HEPARIN 5000 UNIT/ML 1 ML VIAL SQ SCH (21:31)
[2023-10-06] MEDS: GABAPENTIN 300 MG CAP PO ONE (21:31)
[2023-10-06] MEDS: ROSUVASTATIN 10 MG TAB PO SCH (21:31)
[2023-10-07 05:51] LABS: Absolute Eosinophils 0.1 K/uL (0-0.5); Absolute Lymphocytes (CBC) 0.9 K/uL (0.7-4.9); Absolute Monocytes 0.5 K/uL (0.1-1.3); Absolute Neutrophil 3.1 K/uL (1.8-8.0); Basophils % 0.7 % (0-1.3); Eosinophils % 2.1 % (0-4.4); Hemoglobin 13.1 g/dL (13.6-17.9); Lymphocytes % 19.4 % (15.3-44.8); MCH 28.7 pg (27.0-35.0); MCHC 33.6 g/dL (32.0-36.0); MCV 85.5 fL (80-100); MPV 9.5 fL (7.6-11.3); Monocytes % 11.3 % (3.3-12.3); Neutrophils % 66.5 % (41.7-73.7); Platelets 124 thou/uL (152-406); RBC Red Blood Cell Count 4.56 M/uL (4.33-5.43); Red Cell Distribution Width 14.7 % (12.1-15.2)
[2023-10-07 06:12] LABS: Albumin 3.2 g/dL (3.4-5.0); Albumin/Globulin Ratio 1.1 (1.1-1.8); Anion Gap 7.6 mEq/L (5.0-15.0); Bilirubin Total 0.4 mg/dL (0.2-1.0); Globulin 2.8 g/dL (2.3-3.5); Potassium 4.6 mEq/L (3.5-5.1); Thyroid Stimulating Hormone 0.254 uIU/mL (0.358-3.740)
[2023-10-07] MEDS: DULOXETINE 30 MG CAP PO SCH (08:45)
[2023-10-07] MEDS: TAMSULOSIN 0.4 MG SR CAP PO SCH (08:45)
[2023-10-07] MEDS: THYROID 30 MG TAB PO SCH (08:45)
[2023-10-07] MEDS: CLOPIDOGREL 75 MG TABLET PO SCH (08:45)
[2023-10-07] MEDS: LISDEXAMFETAMINE DIMESYLATE 70 MG PO SCH (08:47)
--- NOTE | 2023-10-07 13:07 | P.PN ---
Date of Service: 10/07/23 Subjective: Doing much better today Much more alert, oriented x 3 Ambulatory ROS: 10 point ROS as noted above, otherwise negative Physical exam GEN: Alert, oriented, NAD HEENT: Normal conjunctiva, sclera anicteric CV: Regular rate and rhythm, no edema Pulm: Nonlabored respirations on room air ABD: Soft, nontender, nondistended MSK: No joint tenderness Integumentary: No rashes Neuro: Normal speech, normal affect Vitals reviewed Assessment: Acute kidney injury Hypotension Diabetes mellitus type 0fai-rcotruh-mnqudgaed History of hypertension Hyperlipidemia Plan: Acute kidney injury Hypotension Suspect this is related to heat exhaustion, dehydration And recent admission to ED being within September 23 through September 25-initial creatinine 3.5 down to 1.0 discharge Had recent echocardiogram, renal ultrasound that were normal at [facility] Continue IV fluids, nephrology consultation in place Creatinine significant improved this morning Monitor blood pressure to determine if he is still needing to take his blood pressure medications outpatient Encourage adequate hydration Diabetes mellitus type 9mge-vgnzgug-oxtlsedyh ACHS Accu-Chek, sign scale insulin History of hypertension Resume home medications as appropriate Hyperlipidemia Continue statin DVT PPX: Heparin subcu Code status: Full Discharge Plan: Home Plan to discharge in: 24 hours Time Spent Managing Pts Care (In Minutes): 35
[2023-10-07 14:07] VITALS: O2SAT 96
--- NOTE | 2023-10-07 16:40 | EKG ---
Test Date: 2023-10-06 Test Time: 14:17:02 Tunnel Form Placing Supervisor: PH MEASUREMENT RESULTS: Intervals: Rate: 77 ME: 166 QRSD: 100 QT: 380 QTc: 430 [place]: P: 69 ME: 166 QRS: 53 T: 45 INTERPRETIVE STATEMENTS: Normal sinus rhythm Possible Inferior infarct, age undetermined Abnormal ECG No previous ECG available for comparison Electronically Signed On 10-07-23 16:37:03 CDT by Adolfo Hale
[2023-10-07] MEDS ORDERED: GABAPENTIN 300 MG CAP PO ONE (21:12)
[2023-10-07] MEDS: GABAPENTIN 300 MG CAP PO ONE (21:27)
--- NOTE | 2023-10-08 00:36 | CON ---
Date of Consultation: 10/07/2023 Chief Complaint: Acute kidney injury. History Of Present Illness: The patient is a 67-year-old man with history of nxv-qkztaba-toegfhvrb d iabetes mellitus, hypertension, hyperlipidemia. He presented to emergency room because of generalize d weakness, fatigue, and dizziness. The patient has history of hypertension, although in the emergen cy room, he was found to have hypotension, systolic blood pressure was 70, diastolic 50. He had rece nt admission to [facility] and was treated on September 23 through September 25 for acute kidney injury due to volume depletion. On arrival to the hospital, creatinine level was 3.5 and was trending down to 1.0 5. During this admission to [facility], he had echocardiogram which was normal and renal ultrasou nd was normal. Renal function improved with IV fluids. He reports that he consumes some fluids prio r to this admission, although he was aspirating and could not balance the fluid loss. He was feeling dehydrated and came to the hospital. Past Medical History: Ncj-ccnxibj-dlifwdcou diabetes mellitus, hypertension, hyperlipidemia, acute k idney injury, previously treated with IV fluids and did not require dialysis. Family History: Diabetes mellitus, hypertension. Social History: Denies tobacco, alcohol. Denies drugs. Review of Systems: Constitutional: Denies fever, chills. Eyes: Denies vision changes. Ears, Nose, Mouth, and Throat: Denies sore throat, earache. Respiratory: Denies PND, orthopnea. Cardiovascular: Denies syncope. Was feeling dizzy. Denies palpitation. GI: Denies nausea, vomiting. : Denies dysuria, hematuria. Denies kidney colic. General: Had weakness and some malaise. Denies chills. Physical Examination: General: The patient is awake, alert, follows commands. Eyes: Anicteric sclerae. EOMI. Ears, Nose, Mouth, and Throat: Oral mucosa moist. No pallor. Neck: Supple. No bruits. Lungs: Normal respiratory effort. No wheezing. No rhonchi. Heart: S1, S2. No pericardial friction rub. Abdomen: Soft, benign, nontender. No rebound. No guarding. Extremities: No edema. No clubbing. No cyanosis. Laboratory Data: WBC 6.4, hemoglobin 13.1, platelet count 150,000. Sodium 135, potassium 4.7, BUN 6 5, creatinine 2.8, glucose 149, magnesium 2.3. Impression And Plan: 1.Acute kidney injury, severe, prerenal, secondary to volume depletion related to heat exhaustion an d dehydration and volume depletion. The patient was found to have elevated creatinine and is started on IV fluids. Re-evaluate urinalysis to rule out active urinary sediment. Check CK level to rule o ut rhabdomyolysis. Continue normal saline for hydration and treatment of acute kidney injury. Avoid nephrotoxic medication. I discussed with the patient risk of nonsteroidal anti-inflammatory medicat ion which may cause acute kidney failure and electrolyte abnormalities. 2.Diabetes mellitus. Continue insulin. Hold oral hypoglycemic agent. The patient cannot take metf ormin. 3.Hypotension. Avoid medication including KOFI inhibitor in view of acute kidney injury. Monitor bl ood pressure. Adjust medication for blood pressure accordingly. EB/MODL Voice ID: [id number] Report ID: [id number]
[2023-10-08 05:54] LABS: Absolute Eosinophils 0.1 K/uL (0-0.5); Absolute Lymphocytes (CBC) 1.1 K/uL (0.7-4.9); Absolute Monocytes 0.5 K/uL (0.1-1.3); Absolute Neutrophil 3.8 K/uL (1.8-8.0); Basophils % 0.7 % (0-1.3); Eosinophils % 1.9 % (0-4.4); Hematocrit 40.8 % (39.6-49.0); Hemoglobin 13.5 g/dL (13.6-17.9); Lymphocytes % 19.7 % (15.3-44.8); MCH 28.7 pg (27.0-35.0); MCHC 33.2 g/dL (32.0-36.0); MCV 86.5 fL (80-100); MPV 9.8 fL (7.6-11.3); Monocytes % 9.3 % (3.3-12.3); Neutrophils % 68.4 % (41.7-73.7); Platelets 120 thou/uL (152-406); RBC Red Blood Cell Count 4.72 M/uL (4.33-5.43); Red Cell Distribution Width 14.5 % (12.1-15.2)
[2023-10-08 06:22] LABS: ALT/SGPT 24 U/L (16-61); Albumin 3.2 g/dL (3.4-5.0); Albumin/Globulin Ratio 1.2 (1.1-1.8); Alkaline Phosphatase 56 U/L (45-117); Anion Gap 7.6 mEq/L (5.0-15.0); BUN Blood Urea Nitrogen 23 mg/dL (7-18); Bicarbonate 26 mEq/L (21-32); Bilirubin Total 0.3 mg/dL (0.2-1.0); Creatine Phosphokinase 58 U/L (39-308); Globulin 2.7 g/dL (2.3-3.5); Glomerular Filtration Rate 69 ml/min (=/>90); Glucose Level 134 mg/dL (74-106); Potassium 4.6 mEq/L (3.5-5.1); Protein, Total 5.9 g/dL (6.4-8.2); Sodium Level 143 mEq/L (136-145)
[2023-10-08 06:23] LABS: AST/SGOT < 10 U/L (15-37)
--- NOTE | 2023-10-08 08:43 | P.DS ---
Admission Date: 10/06/23 Discharge Date: 10/08/23 Disposition: ROUTINE DISCHARGE Discharge Condition: GOOD Reason for Admission: EDWARD Consultations: Nephrology- Dr. Ferreira Brief History of Present Illness: 67-year-old male with history of [id number] diabetes, hypertension, hyperlipidemia presents emergency department for fatigue, hypertension. He had been working out in the hot sun and became very tired, upon arrival to the emergency department his blood pressure was 70/50. He reports he had a recent admission at [facility] September 23 through September 25 for acute kidney injury. We were able to review records from them and his creatinine on admission was 3.5 and trended down to 1.05 at discharge. During his admission at [facility] he had an echocardiogram which was normal as well as renal ultrasound. He was treated with IV fluids and his creatinine improved he was discharged. He reports he drank about 3 bottles of water today, he is quite drowsy on evaluation. CT scan of his head was done which was negative for acute findings today. His initial creatinine here is 2.81 with a GFR of 24 glucose of 149 chest x-ray was negative for acute findings. ED provider wishes to the patient for acute kidney injury, hypotension. Hospital Course: Assessment: Acute kidney injury Hypotension Diabetes mellitus type [id number] History of hypertension Hyperlipidemia 67-year-old male with history of mvw-yqpuyzo-ktlbqoagn diabetes, hypertension, hyperlipidemia presents emergency department for fatigue, hypertension. He had been working out in the hot sun and became very tired, upon arrival to the emergency department his blood pressure was 70/50. He reports he had a recent admission at [facility] September 23 through September 25 for acute kidney injury. We were able to review records from them and his creatinine on admission was 3.5 and trended down to 1.05 at discharge. During his admission at [facility] he had an echocardiogram which was normal as well as renal ultrasound. He was treated with IV fluids and his creatinine improved he was discharged. On admission to our hospital creatinine was 2.81 GFR was 24, he was again hydrated with IV fluids, lisinopril and metformin were held and creatinine has improved to 1.15 GFR of 69 today. He was seen by nephrology, renal ultrasound was completed and within normal limits. Nephrology recommends discontinuation of lisinopril, metformin at this time and outpatient follow-up for further titration of his medications. Discussed hydration, slowing down a bit with all the work he has been doing to prevent heat exhaustion/dehydration/acute kidney injury. Of note his thyroid labs were both relatively low, TSH was low at 0.254 and free T4 was also low at 0.56, recommend repeat testing outpatient. Please discontinue use of your lisinopril and metformin Continue other home medications as previously prescribed Please follow-up with your primary care doctor in 1 to 2 weeks Please also follow-up with the healthcare receptionist Dr. Ferreira to monitor your kidneys Vital Signs/Physical Exam: Temp Pulse Resp BP Pulse Ox 96.9 F 66 18 165/91 H 97 10/08/23 03:37 10/08/23 03:37 10/08/23 03:37 10/08/23 03:37 10/08/23 03:37 General: Alert, In no apparent distress, Oriented x3 HEENT: Atraumatic, EOMI Neck: Supple, JVD not distended Respiratory: Normal air movement Cardiovascular: No edema Gastrointestinal: Non-distended Musculoskeletal: No contractures Integumentary: No cyanosis Neurological: Normal speech, Normal affect Laboratory Data at Discharge: WBC 5.50 thou/uL (4.3-10.9) 10/08/23 05:17 Hgb 13.5 g/dL (13.6-17.9) L 10/08/23 05:17 Hct 40.8 % (39.6-49.0) 10/08/23 05:17 Plt Count 120 thou/uL (152-406) L 10/08/23 05:17 Sodium 143 mEq/L (136-145) 10/08/23 05:17 Potassium 4.6 mEq/L (3.5-5.1) 10/08/23 05:17 BUN 23 mg/dL (7-18) H 10/08/23 05:17 Creatinine 1.15 mg/dL (0.70-1.30) 10/08/23 05:17 Glucose 134 mg/dL (74-106) H 10/08/23 05:17 Magnesium 2.3 mg/dL (1.6-2.4) 10/06/23 14:12 Total Bilirubin 0.3 mg/dL (0.2-1.0) 10/08/23 05:17 AST < 10 U/L (15-37) L 10/08/23 05:17 ALT 24 U/L (16-61) 10/08/23 05:17 Alkaline Phosphatase 56 U/L (45-117) 10/08/23 05:17 Home Medications: ALPRAZolam [Xanax*] 0.5 mg PO DAILY 10/06/23 Amlodipine Besylate [Norvasc] 5 mg PO DAILY 10/06/23 Clopidogrel Bisulfate [Plavix*] 75 mg PO DAILY 10/06/23 Dapagliflozin Propanediol [Farxiga] 10 mg PO DAILY 10/06/23 Duloxetine HCl [Cymbalta] 60 mg PO DAILY 10/06/23 Gabapentin Enacarbil [Horizant] 300 mg PO TID 10/06/23 Hydrocodone 5/APAP 325 [[employer] 5/325*] 1 tab PO TIDP PRN 10/06/23 Lisdexamfetamine Dimesylate 70 mg PO DAILY 10/06/23 Nebivolol HCl [Bystolic] 10 mg PO DAILY 10/06/23 Rosuvastatin [Crestor*] 10 mg PO BEDTIME 10/06/23 Semaglutide [Ozempic] 2 mg SQ Q7D 10/06/23 Tadalafil [Cialis] 10 mg PO PRN 10/06/23 Tamsulosin HCl [Flomax] 0.4 mg PO DAILY 10/06/23 Thyroid,Pork [[place] Thyroid] 60 mg PO DAILY 10/06/23 Physician Discharge Instructions: 67-year-old male with history of [id number]-[id number] diabetes, hypertension, hyperlipidemia presents emergency department for fatigue, hypertension. He had been working out in the hot sun and became very tired, upon arrival to the emergency department his blood pressure was 70/50. He reports he had a recent admission at [facility] September 23 through September 25 for acute kidney injury. We were able to review records from them and his creatinine on admission was 3.5 and trended down to 1.05 at discharge. During his admission at [facility] he had an echocardiogram which was normal as well as renal ultrasound. He was treated with IV fluids and his creatinine improved he was discharged. On admission to our hospital creatinine was 2.81 GFR was 24, he was again hydrated with IV fluids, lisinopril and metformin were held and creatinine has improved to 1.15 GFR of 69 today. He was seen by nephrology, renal ultrasound was completed and within normal limits. Nephrology recommends discontinuation of lisinopril, metformin at this time and outpatient follow-up for further t itration of his medications. Discussed hydration, slowing down a bit with all the work he has been doing to prevent heat exhaustion/dehydration/acute kidney injury. Of note his thyroid labs were both relatively low, TSH was low at 0.254 and free T4 was also low at 0.56, recommend repeat testing outpatient. Please discontinue use of your lisinopril and metformin Continue other home medications as previously prescribed Please follow-up with your primary care doctor in 1 to 2 weeks Please also follow-up with the healthcare receptionist Dr. Ferreira to monitor your kidneys Diet: Regular Activity: Ad bao Followup: Wallace Dean MD [ACTIVE - CAN ADMIT] - 1-2 Weeks Aisha El MD [Primary Care Provider] - 1 Week Time spent managing pt's care (in minutes): 30
[2023-10-08 09:06] VITALS: BP 146/84; TEMP 97.6
[2023-10-08] MEDS: AMLODIPINE 5 MG TAB PO SCH (09:45)
[2023-10-08] MEDS: NEBIVOLOL HCL 5 MG TAB PO SCH (09:45)
== END 2023-10-08 10:30 | disposition home or self-care (01) | DRG 923 ==
LOC: ER 13:50 → ERHOLD 16:06 → 2ND 17:29
PROVIDERS: ADMIT Hospitalist; ATTEND Hospitalist
DX: T67.5XXA Heat exhaustion, unspecified, initial encounter (principal); N17.9 Acute kidney failure, unspecified; E86.0 Dehydration; I10 Essential (primary) hypertension; E11.9 Type 2 diabetes mellitus without complications; E86.9 Volume depletion, unspecified; E78.00 Pure hypercholesterolemia, unspecified; I95.9 Hypotension, unspecified; Z95.5 Presence of coronary angioplasty implant and graft; Z79.02 Long term (current) use of antithrombotics/antiplatelets; Z79.899 Other long term (current) drug therapy
CPT/HCPCS: 36415; 70450; 71045; 76770; 80048; 80053; 82550; 82947; 83735; 84439; 84443; 84484; 85025; 93005; 96360; 96361; 97161; 99285; J1644; J7030